=== PATIENT | female | born 1930 | race Caucasian/White ===

== ENCOUNTER 2016-07-08 18:38 | Emergency (ER) | payer MEDICARE, OTHER ==
--- NOTE | 2016-07-10 17:29 | ER ---
DATE SEEN: 07/08/2016 REASON FOR VISIT: Bright red blood per rectum. HISTORY OF PRESENT ILLNESS: This is an 85-year-old female [facility]. She complains of diarrhea for the last 2 to 3 days along with blood streaks and mucous. She was seen in the [facility] and rectal exam did not show any hemorrhoids. INR was 2.12 and she had a normal hemoglobin of 12. She was sent here for possible admission. She complains of mild abdominal pain, but denies any nausea or vomiting. REVIEW OF SYSTEMS: She feels tired, but denies any melena stools, any chest pain, or shortness of breath. PAST MEDICAL HISTORY: Type 2 diabetes, hypertension, history of CVA, and long- term anticoagulation use. SOCIAL HISTORY: She lives at the [facility]. PHYSICAL EXAMINATION: VITAL SIGNS: Blood pressure and temperature within reference range. Her pulse oximetry is 100% in room air. EARS, NOSE, AND THROAT: Negative. SKIN: No pallor or jaundice. CHEST: Clear. ABDOMEN: Soft and benign with no masses. LABORATORY DATA: See above. IMPRESSION: Bright red blood per rectum. PLAN: The patient is stable, has discussed with Dr. Ozuna. I will hold on Coumadin and have her see Dr. Nia Gallagher tomorrow. Discuss colonoscopy in the next several days. Return to the ED with any worsening symptoms. /[id number] DIANA/JAIR
== END 2016-07-08 19:55 | disposition home or self-care (01) ==
LOC: FB.ED 18:38
CPT/HCPCS: 36415; 82272; 85025; 85610; 99282; 99283

== ENCOUNTER 2016-07-12 19:10 | Inpatient (IN) | payer MEDICARE, OTHER ==
[2016-07-12] MEDS ORDERED: Sodium Chloride 0.9% 10 ML Syringe FLUSH PRN (19:36)
[2016-07-12] MEDS: Sodium Chloride 0.9% 1,000 ML IV SCH (21:25)
[2016-07-12] MEDS ORDERED: Ketorolac 15 MG/ML SDV IM PRN (22:26)
[2016-07-12] MEDS ORDERED: Acetaminophen 325 MG Tab PO PRN (22:26)
[2016-07-12] MEDS ORDERED: Sodium Chloride 0.9% 1,000 ML IV SCH (22:30)
--- NOTE | 2016-07-12 23:15 | ER ---
DATE SEEN: 07/12/2016 CHIEF COMPLAINT: Diarrhea. HISTORY OF PRESENT ILLNESS: This 86-year-old female complaining of loose stools since last week. I saw on the , with bright red blood per rectum. I discharged her home. She had a colonoscopy on that showed only a polyp and some hemorrhoids. She had another bright red blood this morning while wiping. She also complains of nonfocal abdominal pain, chills and cold symptoms. REVIEW OF SYSTEMS: A cough, but denies any urinary symptoms. No nausea or vomiting. She is lethargic and has rigors. SOCIAL HISTORY: Nonsmoker. ALLERGIES: IV dye. PAST MEDICAL HISTORY: Type 2 diabetes, hypertension, history of CVA. PHYSICAL EXAMINATION: VITAL SIGNS: Blood pressure 187/87, temp 99.5 initially repeat was 102.8. EARS, NOSE, AND THROAT: Negative. CARDIOVASCULAR: Normal. RESPIRATORY: Clear. ABDOMEN: Soft and benign. LABORATORY DATA: White cell count 17,000, INR 1.2. Creatinine 1.4. CT showed possible colitis, possibly ischemic and chest x-ray was unremarkable with exception of perihilar infiltrates. IMPRESSION: Acute febrile illness, possibly colitis. PLAN: Admit for IV hydration, pain control, fever control, and further workup to control her symptoms. /[id number] DIANA/JAIR
[2016-07-13] MEDS: Sodium Chloride 0.9% 1,000 ML IV SCH (04:45)
[2016-07-13] MEDS: Insulin Aspart 100 Units/ML 3 ML Pen SUBCUT SCH ×2 (11:53→17:04)
--- NOTE | 2016-07-13 11:57 | HP ---
ADMISSION DATE: 07/12/2016 HISTORY OF PRESENT ILLNESS: Sophie Keller is an 86-year-old female, resident of [facility] in [place], who was seen and evaluated at [place] [facility], and admitted to hospital for treatment of lower GI bleed. Beginning of last week, on 07/08/2015, had a couple of bloody painless stools. Not voluminous in nature but somewhat in the twilight. Symptoms were better. Increasing pain, diarrhea, and blood; necessitated in ER visit to the walk-in visit 07/10/2015. Some clotting mucusy stools. She was seen by Dr. Darien Cantu on the , evaluation proceeded, underwent colonoscopy on July 11, was found to have diverticular disease and internal hemorrhoids, one benign polyp was removed, but nothing that was pathologic in nature. No signs of colitis. Then began to have diarrhea, cramps, discomfort, and some secondary blood necessitating admission and treatment in the hospital. She has a history of recurrent diarrhea dating back many years duration. MEDICATIONS: Present daily medications include allopurinol, aspirin, Tessalon Perles, sertraline, Flonase, Advair, hydrochlorothiazide, 34 units of Lantus at bedtime, 8 units of Humalog before each meal, levothyroxine, magnesium sulfate, multivitamin, Accupril, Crestor, sertraline, amlodipine, and Coumadin. ALLERGIES: Allergic to atorvastatin with hives, Lyrica undetermined, IV dye with rash. PAST MEDICAL HISTORY: Significant for multiple surgical procedures including three lumbar back surgery, open cholecystectomy, benign cardiac tumor removal, bilateral carpal tunnel surgery, and bilateral cataract surgery. CHRONIC ILLNESSES: Include type 2 diabetes mellitus, mood disorder, hyperlipidemia hypertension. No other operative procedures, hospitalizations, unusual childhood diseases, major injuries, or fractures. SOCIAL HISTORY: She has resided in [facility] until recent admission to [facility] in [place]. at 76 of heart disease. Six children, three daughters, one son; one son at an early age of heart disease at 39. 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 Nonsmoker. No alcohol consumption. No illicit drug use. FAMILY HISTORY: Negative for early heart disease, diabetes mellitus, or inheritable cancers. REVIEW OF SYSTEMS: CONSTITUTIONAL: Feeling generally just weak and cold this morning. HEENT: Eyes: Sees well with correction. Ears: Hears well without difficulty. Oropharynx: No issues. CHEST: Denies cough, wheeze, or respiratory difficulty. CARDIOVASCULAR: Denies chest pain, palpitations, or syncope. GI: Please see HPI. : Some difficulty with urgent continence. SKIN: No new lesions, eruptions, or moles. ENDOCRINE: No excessive thirst, urination, or allergy. No chronic cough, wheeze, or congestion. PSYCHIATRIC: Mood stable. PHYSICAL EXAMINATION: VITAL SIGNS: 69.9 kg; 37.1 degrees Fahrenheit; pulse 98 and regular; 170/73, repeat 131/57; 20 is the respiration; O2 saturation 98 and 100%. GENERAL: Elderly cooperative and conversant. Gives a good history. Daughter in attendance. Funduscopic benign. Bright TMs. Clear nasal discharge. Mouth and oropharynx clear. Good gag reflex. Tongue midline. NECK: Benign. Thyroid small. CHEST: Clear in all lung stewart. Sternotomy scar well healed. HEART: Regular without ectopy or murmur. Normal S1, S2 without S3-S4 murmur. ABDOMEN: Benign. Right upper quadrant open cholecystectomy scar. Liver edge palpable. No splenic enlargement. PELVIC and RECTAL: Deferred. EXTREMITIES: Well perfused. LABORATORY STUDIES: On admission, hemoglobin 12.2, repeat 11.1; white count 17,000, now 24,000. Protime 12.2, INR 1.21, off Coumadin. Electrolytes stable. GFR 36 and 36, BUN 38 and 32, creatinine 1.4 and 1.4, Mildly elevated AST at [address] by report, not available, colitis discussed. ASSESSMENT: Unexplained abdominal pain, rectal bleeding, likely hemorrhoidal in nature, no signs of inflammatory bowel disease. PLAN: Medications care and treatment appropriate. We will recheck her laboratory studies at about 3 o'clock. We will discontinue IV fluids and feed accordingly. /[id number] /JAIR
[2016-07-13] MEDS ORDERED: Sodium Chloride 0.9% 1,000 ML IV SCH (16:15)
[2016-07-13] MEDS ORDERED: Insulin Detemir 100 Units/ML 3 ML Pen SUBCUT SCH (21:00)
[2016-07-13] MEDS: Sertraline 50 MG Tab PO SCH (21:10)
[2016-07-14] MEDS: Levothyroxine 88 MCG Tab PO SCH (08:34)
[2016-07-14] MEDS: Aspirin 81 MG Tab.EC PO SCH (08:34)
[2016-07-14] MEDS: amLODIPine 5 MG Tab PO SCH (08:34)
[2016-07-14] MEDS: Insulin Aspart 100 Units/ML 3 ML Pen SUBCUT SCH ×3 (08:35→18:26)
--- NOTE | 2016-07-14 09:38 | PN ---
DATE SEEN: 07/14/2016 SUBJECTIVE: Sophie Keller is an 86-year-old female, admitted with vague, but problematic abdominal pain, frequent stools, and bloody stools. Colonoscopy recently performed had a single polyp, internal hemorrhoids. Hemoglobin has fallen from 12+ to 10.1. Vague abdominal pain, and frequent stools today. Otherwise reasonable. LABORATORY DATA: From 07/13 revealed white count 18,100; hemoglobin 10.1. Normochromic normocytic indices. Sedimentation rate 46, CRP 3.6. Sugars were noted. Blood cultures negative. OBJECTIVE: VITAL SIGNS: Weight 71.838 kg, temperature 36.7 degrees Fahrenheit, blood pressure 135/61, respiratory rate 18, O2 sat 98%. GENERAL: Appears comfortable. NECK: Benign. Thyroid small. CHEST: Clear in all lung stewart. HEART: Regular rate without ectopy or murmur. ABDOMEN: Intermittently tender. Peculiar abdominal pain following hemoglobin, recent colonoscopy. PLAN: Consultation, Dr. Darien Cantu, complementary care, and well being. Continue IV fluids. Laboratory studies to follow. /[id number] LYDIA/JAIR
--- NOTE | 2016-07-14 12:13 | CR ---
INDICATION: Cough. History of open heart surgery 1987. CHEST: PA and lateral views of the chest 07/12/2016. No comparisons. Somewhat flattened diaphragm leaves with prominent AP diameter and hyperaeration suggest COPD. No consolidating pneumonia or effusion could be identified. No evidence of CHF is seen. The heart is prominent in size, but not grossly enlarged. The aorta is calcified and somewhat tortuous. Median sternotomy is noted. Degenerative changes are noted in the mid thoracic spine. IMPRESSION: No acute process - findings as noted above. MTDD
[2016-07-14] MEDS: Sertraline 50 MG Tab PO SCH (21:37)
[2016-07-14] MEDS: Rosuvastatin 10 MG Tab PO SCH (21:37)
[2016-07-14] MEDS: Insulin Detemir 100 Units/ML 3 ML Pen SUBCUT SCH (21:40)
--- NOTE | 2016-07-14 22:03 | CONS ---
DATE OF CONSULTATION: 07/14/2016 HISTORY OF PRESENT ILLNESS: This 86-year-old female was admitted to the hospital 2 days ago with return of diarrhea and some blood in her stools. These symptoms began about a week ago and led to evaluation including a colonoscopy on 07/11/2016. At that time, the colon mucosa appeared unremarkable. She did have some internal hemorrhoids and a small amount of diverticular disease. A small benign-appearing polyp was also removed. No definite signs of colitis were seen at that time and no active bleeding was noted. It was felt that the most likely scenario was some bleeding from her hemorrhoids exacerbated by the diarrhea. Since she has been in the hospital, she did have some blood in her stool early on, but has not had any over the last 24-36 hours. She is, however, still having several small stools each day. She has a little bit of crampy abdominal pain with these, although generally does not have abdominal pain while at rest. Her appetite is less than normal, but she is not having any vomiting. DIAGNOSTIC DATA: Laboratory studies did show elevated serum white blood cell count of 18,000 yesterday and this has come down to 15,000 today and her hemoglobin which had been depressed yesterday at 10 is now up to 11.5 even with hydration. The patient underwent a CT scan of the abdomen and pelvis at the time of admission, which showed a little bit of colonic dilation which would not be unexpected in the post colonoscopy state, but no evidence of complication from colonoscopy was noted. PHYSICAL EXAMINATION: VITAL SIGNS: The patient currently is afebrile and has been since admission. Her blood pressure is 141/63 and her pulse is 94. GENERAL: She appears alert and in no acute distress. Her abdomen is soft and nontender. IMPRESSION: Persistent diarrhea. This began about 3 days after the patient was placed on antibiotics for a sinus infection. The possibility of antibiotic- induced colitis with diarrhea is a consideration. Viral illness is also a possibility. I do not see evidence of complication from her colonoscopy at this time. I have discussed this with Dr. Leach, who will continue care of this patient and we will test for Clostridium difficile toxin. /[id number] TRACY/JAIR
[2016-07-15] MEDS: Aspirin 81 MG Tab.EC PO SCH (10:04)
[2016-07-15] MEDS: Levothyroxine 88 MCG Tab PO SCH (10:04)
[2016-07-15] MEDS: amLODIPine 5 MG Tab PO SCH (10:05)
[2016-07-15] MEDS: Atropine/Diphenoxylate 0.025-2.5 MG Tab PO PRN ×2 (11:21→15:58)
--- NOTE | 2016-07-15 12:07 | PN ---
DATE SEEN: 07/15/2016 SUBJECTIVE: Sophie Keller is an 86-year-old female, admitted with peculiar problematic diarrhea. Testing for Clostridium difficile pending. Consultation with Dr. Cantu helpful and insightful. Doing well. Had multiple stools through the night. Clostridium testing pending. OBJECTIVE: VITAL SIGNS: 36.4, 80, 128/61, 18, and 98%. GENERAL: Appears comfortable. CHEST: Clear. HEART: Regular. ABDOMEN: No particular palpable masses, no particular tenderness. ASSESSMENT: Protracted diarrhea. PLAN: Stool testing pending, results later available today. We will discontinue IV fluids and encourage hydration. Lomotil will be started for diarrhea. /[id number] LYDIA/JAIR
[2016-07-15] MEDS: Insulin Aspart 100 Units/ML 3 ML Pen SUBCUT SCH ×2 (14:53→14:54)
[2016-07-15] MEDS: metroNIDAZOLE 500 MG Tab PO SCH ×2 (15:59→22:24)
[2016-07-15] MEDS: Rosuvastatin 10 MG Tab PO SCH (20:52)
[2016-07-15] MEDS: Insulin Detemir 100 Units/ML 3 ML Pen SUBCUT SCH (20:52)
[2016-07-15] MEDS: Sertraline 50 MG Tab PO SCH (20:53)
[2016-07-16] MEDS ORDERED: Levothyroxine 88 MCG Tab PO SCH (06:00)
[2016-07-16] MEDS: metroNIDAZOLE 500 MG Tab PO SCH ×2 (06:09→13:02)
[2016-07-16] MEDS: Aspirin 81 MG Tab.EC PO SCH (09:02)
[2016-07-16] MEDS: amLODIPine 5 MG Tab PO SCH (09:02)
[2016-07-16 12:07] VITALS: BP 138/65
--- NOTE | 2016-07-17 08:01 | DISCH ---
DISCHARGE DATE: 07/16/2016 HOSPITAL COURSE: Sophie Keller is an 86-year-old female, admitted with complicated abdominal pain, diarrhea, lethargy, and complicated fatigue. Had recently undergone a colonoscopy prior to admission. Complicated diarrhea and severe abdominal pain. Seen by Dr. Darien Cantu, who felt there were no implications of her colonoscopy and biopsy of a polyp. IV fluids were provided. Analgesics as appropriate. Antidiarrheals as appropriate. Culture of stool returned Clostridium difficile, was started on appropriate antibiotic therapy. At the time of discharge, stools were minimized. Fever was absent. Belly pain was limited, and she was in good spirits. DISCHARGE MEDICATIONS: Please see med recon list. CONSULTATION: Darien Cantu MD. /[id number] LYDIA/JAIR CC: FORREST WAGNER CNP, [facility]
== END 2016-07-16 13:03 | DRG 373 ==
LOC: FB.ED 19:10 → FB.MS 22:26
PROVIDERS: ADMIT Family Medicine; ATTEND Family Medicine
DX: A04.7 Enterocolitis due to Clostridium difficile (principal); E11.9 Type 2 diabetes mellitus without complications; I10 Essential (primary) hypertension; Z66 Do not resuscitate; Z79.82 Long term (current) use of aspirin; R19.7 Diarrhea, unspecified; R10.9 Unspecified abdominal pain; K62.5 Hemorrhage of anus and rectum; E78.5 Hyperlipidemia, unspecified; Z79.01 Long term (current) use of anticoagulants; Z79.4 Long term (current) use of insulin; Z91.041 Radiographic dye allergy status; Z88.8 Allergy status to other drugs, medicaments and biological substances; Z86.73 Personal history of transient ischemic attack (TIA), and cerebral infarction without residual deficits; F39 Unspecified mood [affective] disorder
CPT/HCPCS: 36415; 71020; 74176; 80053; 85025; 85610; 99284; 99285; J7040; J7050; 81001; 82962; 85651; 86140; 87040; 87324; 87798; 87798-59; A9270-GY

== ENCOUNTER 2016-07-28 08:47 | Observation (INO) | payer MEDICARE, OTHER ==
[2016-07-28] MEDS ORDERED: Sodium Chloride 0.9% 10 ML Syringe FLUSH PRN (08:58)
[2016-07-28] MEDS ORDERED: Sodium Chloride 0.9% 500 ML IV ONE (08:58)
[2016-07-28] MEDS ORDERED: Ondansetron 4 MG/2 ML SDV IVPUSH ONE (09:12)
[2016-07-28] MEDS ORDERED: Pantoprazole 40 MG in Sodium Chloride 0.9% 100 ML IV ONE (09:12)
[2016-07-28] MEDS ORDERED: Pantoprazole 40 MG Vial IVPUSH ONE (09:28)
--- NOTE | 2016-07-28 09:40 | EDM.PDOC ---
ED HPI GI/ABDOMINAL - General Chief Complaint: Gastrointestinal Problem Stated Complaint: vomiting Time Seen by Provider: 07/28/16 09:13 Source: Reports: Patient, Family History Limitations: Reports: Altered mental status - History of Present Illness INITIAL COMMENTS - FREE TEXT/NARRATIVE: 86 years old w f with history of c diff, last ABX taken yesterday, came to the ed with her daughter due to N/V/D this morning and feeling weak. Pt ambulating short distances. No Dizziness. Her SBP was in the 80s, her puls was 90 BPM. Pt had 2 BMs last night and vomited once this morning. Symptom Onset Date: 07/27/16 Symptom Onset Time: 07:00 Timing/Duration: Reports: Day(s): Location: generalized Quality: Reports: cramping (lower abd. ) Severity: mild Associated Symptoms (-Female): Reports: diarrhea, nausea/vomiting - Related Data Allergies/ADRs: Allergies Allergy/AdvReac Type Severity Reaction Status Date / Time atorvastatin Allergy Hives Verified 07/28/16 08:56 pregabalin [From Lyrica] Allergy Cannot Verified 07/28/16 08:56 Remember iv dye Allergy Rash Uncoded 07/12/16 19:41 Home Meds: Home Meds Allopurinol [Zyloprim] 100 mg PO DAILY 11/25/15 [History] Aspirin [Adult Low Dose Aspirin EC] 81 mg PO DAILY 11/25/15 [History] Fluticasone/Salmeterol [Advair 250-50 Diskus] 2 puff INH BID 11/25/15 [History] Hydrochlorothiazide 25 mg PO DAILY 11/25/15 [History] Insulin Glarg,Human.Rec.Analog [Lantus Solostar] 34 unit SQ BEDTIME 11/25/15 [ History] Insulin Lispro [HumaLOG] 8 unit SQ ,,11/25/15 [History] Levothyroxine [Synthroid] 88 mcg PO DAILY 11/25/15 [History] Quinapril [Accupril] 40 mg PO BEDTIME 11/25/15 [History] Rosuvastatin [Crestor] 20 mg PO BEDTIME 11/25/15 [History] Sertraline [Zoloft] 50 mg PO BEDTIME 11/25/15 [History] Multivitamin [Multivitamins] 1 each PO DAILY 05/18/16 [History] Warfarin [Coumadin] 5 mg PO SUTUWETHFRSA 05/18/16 [History] Warfarin [Coumadin] 7.5 mg PO MO 05/18/16 [History] Cholecalciferol (Vitamin D3) [Vitamin D] 2,000 unit PO DAILY 05/19/16 [History] amLODIPine [Norvasc] 5 mg PO DAILY 05/19/16 [History] Benzonatate [Tessalon Perles] 100 mg PO Q8HR PRN 07/08/16 [History] Cetirizine [ZyrTEC] 10 mg PO DAILY 07/08/16 [History] Fluticasone Furoate [Flonase Sensimist] 9.9 ml NS DAILY 07/08/16 [History] Magnesium Oxide 400 mg PO BID 07/08/16 [History] Past Medical History HEENT History: Reports: Allergic rhinitis, Cataract, Hard of hearing, Impaired vision, Other (see below) Other HEENT History: 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 Colonoscopy 07-11-2016 Genitourinary History: Reports: Acute renal failure, Renal disease [employer] History: Reports: Musculoskeletal History: Reports: Arthritis, Back pain, chronic, Fibromyalgia, Gout Neurological History: Reports: CVA, Headaches, chronic Psychiatric History: Reports: Anxiety, Depression Endocrine/Metabolic History: Reports: Diabetes, type II Hematologic History: Reports: None Immunologic History: Reports: None Oncologic (Cancer) History: Reports: None Dermatologic History: Reports: None - Infectious Disease History Infectious Disease History: Reports: Chicken pox, Influenza, Measles, Mumps, Shingles - Past Surgical History Head Surgeries/Procedures: Reports: None HEENT Surgical History: Reports: Cataract surgery Cardiovascular Surgical History: Reports: None Respiratory Surgical History: Reports: None GI Surgical History: Reports: Appendectomy, Cholecystectomy, Colonoscopy, EGD, Polypectomy Female Surgical History: Reports: Hysterectomy Endocrine Surgical History: Reports: None Neurological Surgical History: Reports: C-Spine Musculoskeletal Surgical History: Reports: Carpal tunnel, Other (see below) Other Musculoskeletal Surgeries/Procedures:: back surgerys times 3 Oncologic Surgical History: Reports: None Dermatological Surgical History: Reports: None Social & Family History - Family History HEENT: Reports: Impaired vision Cardiac: Reports: Heart failure, High cholesterol, Hypertension, [place] Respiratory: Reports: Asthma GI: Reports: Colon polyps : Reports: Other (see below) Other Family History: brother had blood disease that led to kidney disease OBGYN: Reports: Fibroids, Musculoskeletal: Reports: Gout Neurological: Reports: CVA, Migraines Psychiatric: Reports: Depression Endocrine/Metabolic: Reports: Diabetes, type II Hematologic: Reports: None Immunologic: Reports: Solid organ transplant Dermatologic: Reports: Eczema Oncologic: Reports: Skin - Tobacco Use Smoking Status *Q: Never Smoker Second Hand Smoke Exposure: No - Caffeine Use Caffeine Use: Reports: Soda - Recreational Drug Use Recreational Drug Use: No ED ROS GENERAL - Review of Systems Review Of Systems: See Below Constitutional: Reports: malaise, weakness HEENT: Reports: No symptoms Respiratory: Reports: No Symptoms Cardiovascular: Reports: Blood pressure problem Endocrine: Reports: no symptoms GI/Abdominal: Reports: Diarrhea : Reports: no symptoms Musculoskeletal: Reports: no symptoms Skin: Reports: no symptoms Neurological: Reports: No Symptoms Psychiatric: Reports: No symptoms Hematologic/Lymphatic: Reports: no symptoms Immunologic: Reports: no symptoms ED EXAM, GI/ABD - Physical Exam Exam: See Below Exam Limited By: Physical impairment General Appearance: alert, WD/WN, mild distress Eyes: bilateral: normal appearance Ears: normal external exam, normal canal Nose: normal inspection, normal mucosa, no blood Throat/Mouth: Normal inspection, Normal lips, Normal gums Head: atraumatic, normocephalic Neck: normal inspection, supple, non-tender Respiratory/Chest: no respiratory distress, lungs clear, normal breath sounds, no accessory muscle use Cardiovascular: normal peripheral pulses, regular rate, rhythm GI/Abdominal: tenderness (lower abd. ) (Female) Exam: Deferred Rectal (Female) Exam: Deferred Back Exam: normal inspection, full range of motion Extremities: normal inspection, normal range of motion Neurological: alert, oriented, CN II-XII intact, normal cognition Psychiatric: normal affect Skin Exam: Warm, Dry, Intact Lymphatic: no adenopathy Course - Vital Signs Text/Narrative:: 86 years old w f with history of c diff, last ABX taken yesterday, came to the ed with her daughter due to N/V/D this morning and feeling weak. Pt ambulating short distances. No Dizziness. Her SBP was in the 80s, her puls was 90 BPM. Pt had 2 BMs last night and vomited once this morning. PE: Gen weakness. dry mucosal membrane Labs: WBC 31K Cr. 2.1 C Diff reuslts are pending, UA pending Impression: renal insuff, Leucocytosis, gen weakness, DNR Tx: NS, Zofran. Reexam: Improved Plan: Admit to [facility] for observation, Dr. Capellan accepted. Last Recorded V/S: Last Vital Signs Temp 36.9 C 07/28/16 09:13 Pulse 85 07/28/16 11:26 Resp 20 07/28/16 09:13 BP 111/92 H 07/28/16 11:26 Pulse Ox 100 07/28/16 09:13 - Orders/Labs/Meds Orders: Active Orders 24 hr Category Date Time Status Patient Status [ADT] Routine ADT 07/28/16 11:25 Ordered EKG Documentation Completion [RC] ASDIRECTED Care 07/28/16 11:24 Ordered Oxygen Therapy [RC] PRN Care 07/28/16 11:25 Ordered Up With Assistance [RC] ASDIRECTED Care 07/28/16 11:24 Ordered VTE/DVT Education [RC] Per Unit Routine Care 07/28/16 11:25 Ordered Vital Signs [RC] Q4H Care 07/28/16 11:25 Ordered Clear Liquid Diet [DIET] Diet 07/28/16 Breakfast Ordered UA W/MICROSCOPIC [URIN] Stat Lab 07/28/16 09:14 Uncollected Ondansetron [Zofran] Med 07/28/16 11:24 Ordered 4 mg IV Q6H PRN Sodium Chloride 0.9% [Saline Flush] Med 07/28/16 08:58 Active 10 ml FLUSH ASDIRECTED PRN Saline Lock Insert [OM.PC] Routine Oth 07/28/16 08:58 Ordered Resuscitation Status Routine Resus Stat 07/28/16 11:24 Ordered EKG 12 Lead [EK] Routine Ther 07/28/16 11:24 Ordered Medication Orders Ondansetron HCl (Zofran) 4 mg IV Q6H PRN PRN Reason: Nausea/Vomiting Sodium Chloride (Saline Flush) 10 ml FLUSH ASDIRECTED PRN PRN Reason: Keep Vein Open Last Admin: 07/28/16 09:07 Dose: 10 ml Labs: Laboratory Tests 07/28/16 07/28/16 07/28/16 Range/Units 09:32 09:32 09:32 WBC 31.5 H* (4.5-12.0) X10-3/uL RBC 3.59 (3.23-5.20) x10(6)uL Hgb 11.3 L (11.5-15.5) g/dL Hct 32.9 (30.0-51.3) % MCV 91.7 (80-96) fL MCH 31.6 (27.7-33.6) pg MCHC 34.5 (32.2-35.4) g/dL RDW 14.3 (11.5-15.5) % Plt Count 327 (125-369) X10(3)uL MPV 8.7 (7.4-10.4) fL Add Manual Diff Yes Neutrophils % (Manual) 91 H (46-82) % Band Neutrophils % 2 (0-6) % Lymphocytes % (Manual) 5 L (13-37) % Monocytes % (Manual) 2 L (4-12) % PT 19.7 H (8.7-11.1) INR 1.92 H (0.89-1.13) Sodium 133 L (135-145) mmol/L Potassium 3.8 (3.5-5.3) mmol/L Chloride 103 D (100-110) mmol/L Carbon Dioxide 19 L (23-29) mmol/L BUN 51 H D (8-23) mg/dL Creatinine 2.1 H* (0.6-1.3) mg/dL Est Cr Clr Drug Dosing 14.32 mL/min Estimated GFR (MDRD) 22 L (>60) BUN/Creatinine Ratio 24.3 H (9-20) Glucose 294 H D (80-116) mg/dL Calcium 8.3 L (8.6-10.2) mg/dL B-Natriuretic Peptide (0-100) pg/mL 07/28/16 Range/Units 09:32 WBC (4.5-12.0) X10-3/uL RBC (3.23-5.20) x10(6)uL Hgb (11.5-15.5) g/dL Hct (30.0-51.3) % MCV (80-96) fL MCH (27.7-33.6) pg MCHC (32.2-35.4) g/dL RDW (11.5-15.5) % Plt Count (125-369) X10(3)uL MPV (7.4-10.4) fL Add Manual Diff Neutrophils % (Manual) (46-82) % Band Neutrophils % (0-6) % Lymphocytes % (Manual) (13-37) % Monocytes % (Manual) (4-12) % PT (8.7-11.1) INR (0.89-1.13) Sodium (135-145) mmol/L Potassium (3.5-5.3) mmol/L Chloride (100-110) mmol/L Carbon Dioxide (23-29) mmol/L BUN (8-23) mg/dL Creatinine (0.6-1.3) mg/dL Est Cr Clr Drug Dosing mL/min Estimated GFR (MDRD) (>60) BUN/Creatinine Ratio (9-20) Glucose (80-116) mg/dL Calcium (8.6-10.2) mg/dL B-Natriuretic Peptide 185 H (0-100) pg/mL Meds: Medications Generic Name Dose Route Start Last Admin Trade Name Freq PRN Reason Stop Dose Admin Ondansetron HCl 4 mg 07/28/16 11:24 Zofran IV Q6H PRN Nausea/Vomiting Sodium Chloride 10 ml 07/28/16 08:58 07/28/16 09:07 Saline Flush FLUSH 10 ml ASDIRECTED PRN Administration Keep Vein Open Discontinued Medications Generic Name Dose Route Start Last Admin Trade Name Freq PRN Reason Stop Dose Admin Sodium Chloride 500 mls @ 500 mls/hr 07/28/16 08:58 07/28/16 09:08 Normal Saline IV 07/28/16 09:57 500 mls/hr .BOLUS ONE Administration Pantoprazole Sodium 40 mg/ 100 mls @ 200 mls/hr 07/28/16 09:12 07/28/16 09:29 Sodium Chloride IV 07/28/16 09:41 Not Given .BOLUS ONE Ondansetron HCl 8 mg 07/28/16 09:12 07/28/16 09:25 Zofran IVPUSH 07/28/16 09:13 8 mg ONETIME ONE Administration Pantoprazole Sodium 40 mg 07/28/16 09:28 07/28/16 09:29 Protonix Iv IVPUSH 07/28/16 09:29 40 mg ONETIME ONE Administration Departure - Departure Time of Disposition: 11:23 Disposition: Refer to Observation Condition: fair Clinical Impression: Weakness - My Orders Last 24 Hours: My Active Orders 07/28/16 08:58 Sodium Chloride 0.9% [Saline Flush] 10 ml FLUSH ASDIRECTED PRN Saline Lock Insert [OM.PC] Routine 07/28/16 09:14 UA W/MICROSCOPIC [URIN] Stat 07/28/16 11:24 EKG Documentation Completion [RC] ASDIRECTED Up With Assistance [RC] ASDIRECTED Ondansetron [Zofran] 4 mg IV Q6H PRN Resuscitation Status Routine EKG 12 Lead [EK] Routine 07/28/16 11:25 Patient Status [ADT] Routine Oxygen Therapy [RC] PRN VTE/DVT Education [RC] Per Unit Routine Vital Signs [RC] Q4H 07/28/16 Breakfast Clear Liquid Diet [DIET] - Assessment/Plan Last 24 Hours: My Active Orders 07/28/16 08:58 Sodium Chloride 0.9% [Saline Flush] 10 ml FLUSH ASDIRECTED PRN Saline Lock Insert [OM.PC] Routine 07/28/16 09:14 UA W/MICROSCOPIC [URIN] Stat 07/28/16 11:24 EKG Documentation Completion [RC] ASDIRECTED Up With Assistance [RC] ASDIRECTED Ondansetron [Zofran] 4 mg IV Q6H PRN Resuscitation Status Routine EKG 12 Lead [EK] Routine 07/28/16 11:25 Patient Status [ADT] Routine Oxygen Therapy [RC] PRN VTE/DVT Education [RC] Per Unit Routine Vital Signs [RC] Q4H 07/28/16 Breakfast Clear Liquid Diet [DIET]
[2016-07-28] MEDS ORDERED: Ondansetron 4 MG/2 ML SDV IV PRN (11:24)
[2016-07-28] MEDS ORDERED: Benzonatate 100 MG Cap PO PRN (11:44)
[2016-07-28] MEDS ORDERED: Warfarin 5 MG Tab PO SCH (11:45)
[2016-07-28] MEDS ORDERED: Warfarin 5 MG Tab *PTOM PO SCH (16:00)
--- NOTE | 2016-07-28 17:14 | PCM.HP ---
H&P History of Present Illness - General Date of Service: 07/28/16 Admit Problem/Dx: Admission Diagnosis/Problem Admission Diagnosis/Problem Weakness Source of Information: Patient History Limitations: Reports: No limitations - History of Present Illness Initial Comments - Free Text/Narative: 86-year-old female with current diarrhea. She presented to the ER diarrhea for approximately 2-3 days she and vomiting. She was recently being treated for C. difficile and finished her last antibiotic yesterday. From a record is not clear what type of that she was taking. The last episode of vomiting was this morning, and the stool is described as loose foul-smelling suspicious for C. difficile. She denies any abdominal pain but feels weak and dehydrated. She has a history of type 2 diabetes, stable and hypertension stable. The her 3rd admission the last one month. Check colonoscopy the 10th did not show anything significant. - Related Data Allergies/Adverse Reactions: Allergies Allergy/AdvReac Type Severity Reaction Status Date / Time atorvastatin Allergy Hives Verified 07/28/16 08:56 pregabalin [From Lyrica] Allergy Cannot Verified 07/28/16 08:56 Remember iv dye Allergy Rash Uncoded 07/12/16 19:41 Home Medications: Home Meds Allopurinol [Zyloprim] 100 mg PO DAILY 11/25/15 [History] Aspirin [Adult Low Dose Aspirin EC] 81 mg PO DAILY 11/25/15 [History] Fluticasone/Salmeterol [Advair 250-50 Diskus] 1 puff INH BID 11/25/15 [History] Hydrochlorothiazide 25 mg PO DAILY 11/25/15 [History] Insulin Glarg,Human.Rec.Analog [Lantus Solostar] 34 unit SQ BEDTIME 11/25/15 [ History] Insulin Lispro [HumaLOG] 8 unit SQ ,,11/25/15 [History] Levothyroxine [Synthroid] 88 mcg PO DAILY 11/25/15 [History] Quinapril [Accupril] 40 mg PO BEDTIME 11/25/15 [History] Rosuvastatin [Crestor] 20 mg PO BEDTIME 11/25/15 [History] Sertraline [Zoloft] 50 mg PO BEDTIME 11/25/15 [History] Multivitamin [Multivitamins] 1 each PO DAILY 05/18/16 [History] Warfarin [Coumadin] 5 mg PO SUTUWETHFRSA 05/18/16 [History] Warfarin [Coumadin] 7.5 mg PO MO 05/18/16 [History] Cholecalciferol (Vitamin D3) [Vitamin D] 2,000 unit PO DAILY 05/19/16 [History] amLODIPine [Norvasc] 5 mg PO DAILY 05/19/16 [History] Benzonatate [Tessalon Perles] 100 mg PO Q8HR PRN 07/08/16 [History] Cetirizine [ZyrTEC] 10 mg PO DAILY 07/08/16 [History] Fluticasone Furoate [Flonase Sensimist] 9.9 ml NS DAILY 07/08/16 [History] Magnesium Oxide 400 mg PO BID 07/08/16 [History] Past Medical History HEENT History: Reports: Allergic rhinitis, Cataract, Hard of hearing, Impaired vision, Other (see below) Other HEENT History: 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: Musculoskeletal History: Reports: Arthritis, Back pain, chronic, Fibromyalgia, Gout Neurological History: Reports: CVA, Headaches, chronic Psychiatric History: Reports: Anxiety, Depression Endocrine/Metabolic History: Reports: Diabetes, type II Hematologic History: Reports: None Immunologic History: Reports: None Oncologic (Cancer) History: Reports: None Dermatologic History: Reports: None - Infectious Disease History Infectious Disease History: Reports: Chicken pox, Influenza, Measles, Mumps, Shingles - Past Surgical History Head Surgeries/Procedures: Reports: None HEENT Surgical History: Reports: Cataract surgery Cardiovascular Surgical History: Reports: None Respiratory Surgical History: Reports: None GI Surgical History: Reports: Appendectomy, Cholecystectomy, Colonoscopy, EGD, Polypectomy Female Surgical History: Reports: Hysterectomy Endocrine Surgical History: Reports: None Neurological Surgical History: Reports: C-Spine Musculoskeletal Surgical History: Reports: Carpal tunnel, Other (see below) Other Musculoskeletal Surgeries/Procedures:: back surgerys times 3 Oncologic Surgical History: Reports: None Dermatological Surgical History: Reports: None Social & Family History - Family History Family Medical History: Noncontributory HEENT: Reports: Impaired vision Cardiac: Reports: Heart failure, High cholesterol, Hypertension, [place] Respiratory: Reports: Asthma GI: Reports: Colon polyps : Reports: Other (see below) Other Family History: brother had blood disease that led to kidney disease OBGYN: Reports: Fibroids, Musculoskeletal: Reports: Gout Neurological: Reports: CVA, Migraines Psychiatric: Reports: Depression Endocrine/Metabolic: Reports: Diabetes, type II Hematologic: Reports: None Immunologic: Reports: Solid organ transplant Dermatologic: Reports: Eczema Oncologic: Reports: Skin - Tobacco Use Smoking Status *Q: Never Smoker Second Hand Smoke Exposure: No - Caffeine Use Caffeine Use: Reports: None - Recreational Drug Use Recreational Drug Use: No H&P Review of Systems - Review of Systems: Review Of Systems: ROS reveals no pertinent complaints other than HPI. Exam - Exam Exam: See Below - Vital Signs Vital Signs: Last Vital Signs Temp 98.7 F 07/28/16 15:45 Pulse 85 07/28/16 11:26 Resp 18 07/28/16 15:45 BP 100/46 L 07/28/16 15:45 Pulse Ox 97 07/28/16 15:45 Weight: 69.445 kg - Exam General: alert, oriented, 4 HEENT: PERRLA, Hearing intact, Mucosa moist & pink, Nares patent, Normal nasal septum, Posterior pharynx clear, Conjunctiva clear, EOMI, EACs clear, TMs clear Neck: supple, trachea midline, 2 Lungs: Clear to auscultation, Normal respiratory effort Cardiovascular: regular rate, regular rhythm Abdomen: normal bowel sounds, soft (Female) Exam: Deferred Rectal (Female) Exam: Deferred Back Exam: normal inspection, full range of motion, NT Extremities: 3, normal inspection, 10 Skin: warm, dry, intact Neurological: cranial nerves intact, reflexes equal bilateral Neuro Extensive - Mental Status: alert, oriented x3, normal mood/affect, normal cognition Neuro Extensive - Motor, Sensory, Reflexes: CN II-XII intact, normal gait, normal reflexes Psychiatric: alert, normal affect, normal mood - Patient Data Lab Results last 24 hrs: Laboratory Results - last 24 hr 07/28/16 07/28/16 Range/Units 16:00 16:12 POC Glucose 282 H D (80-116) mg/dL Urine Color Yellow (YELLOW) Urine Appearance Clear (CLEAR) Urine pH 5.0 (5.0-6.5) Ur Specific [place] 1.025 (1.010-1.025) Urine Protein Trace (NEGATIVE) mg/dL Urine Glucose (UA) Normal (NEGATIVE) mg/dL Urine Ketones Negative (NEGATIVE) mg/dL Urine Occult Blood Moderate H (NEGATIVE) Urine Nitrite Negative (NEGATIVE) Urine Bilirubin Negative (NEGATIVE) Urine Urobilinogen Normal (NEGATIVE) mg/dL Ur Leukocyte Esterase Negative (NEGATIVE) Urine RBC 10-20 H (0) Urine WBC 0-5 (0) Ur Squamous Epith Cells Many H (NS,R,O) Urine Bacteria Many H (NS) Hyaline Casts Few H (NS) Result Diagrams: 07/28/16 09:32 07/28/16 09:32 *Q Meaningful Use (ADM) - VTE *Q VTE Criteria *Q: - Stroke *Q Stroke Criteria *Q: - AMI *Q AMI Criteria *Q: - Problem List (1) Diarrhea SNOMED Code(s): 37370383 ICD Code: R19.7 - DIARRHEA, UNSPECIFIED Status: Acute Current Visit: Yes (2) Renal failure (ARF), acute on chronic SNOMED Code(s): 802415717 ICD Code: N17.9 - ACUTE KIDNEY FAILURE, UNSPECIFIED; N18.9 - CHRONIC KIDNEY DISEASE, UNSPECIFIED Status: Acute Current Visit: Yes (3) Diabetes type 2, controlled SNOMED Code(s): 14774130 ICD Code: E11.9 - TYPE 2 DIABETES MELLITUS WITHOUT COMPLICATIONS Status: Acute Current Visit: Yes Qualifiers: Diabetes mellitus complication status: without complication (4) HTN (hypertension) SNOMED Code(s): 33183015 ICD Code: I10 - ESSENTIAL (PRIMARY) HYPERTENSION Status: Acute Current Visit: Yes Qualifiers: Hypertension type: essential hypertension Qualified Code(s): I10 - Essential (primary) hypertension (5) Leukocytosis SNOMED Code(s): 207796722, 676108677 ICD Code: D72.829 - ELEVATED WHITE BLOOD CELL COUNT, UNSPECIFIED Status: Acute Current Visit: Yes Qualifiers: Leukocytosis type: lymphocytosis Qualified Code(s): D72.820 - Lymphocytosis (symptomatic) Problem List Initiated/Reviewed/Updated: Yes Orders Last 24hrs: Active Orders 24 hr Category Date Time Status Accu Check [Blood Glucose Check, Bedside] [RC] TIDAC Care 07/28/16 11:48 Active C DIFFICILE BY DNA [RM] Stat Lab 07/28/16 17:11 Uncollected CBC WITH AUTO DIFF [HEME] AM Lab 07/29/16 05:11 Ordered CDIFF TOXIN A+B GROUP [OP] Routine Lab 07/28/16 12:35 Received COMPREHENSIVE METABOLIC PN,CMP [CHEM] AM Lab 07/29/16 05:11 Ordered CULTURE-STOOL [MREF] Routine Lab 07/28/16 17:11 Uncollected PERIPH BLOOD SMEAR PATHOLOGIST [HEME] Routine Lab 07/28/16 17:11 Ordered Allopurinol [Zyloprim] Med 07/29/16 09:00 Active 100 mg PO DAILY Aspirin [Halfprin] Med 07/29/16 09:00 Active 81 mg PO DAILY Benzonatate [Tessalon Perles] Med 07/28/16 11:44 Active 100 mg PO Q8H PRN Cetirizine [ZyrTEC] Med 07/29/16 09:00 Active 10 mg PO DAILY Cholecalciferol (Vitamin D3) [Vitamin D3] Med 07/29/16 09:00 Active 2,000 units PO DAILY Fluticasone Propionate [Flonase] Med 07/29/16 09:00 Active 0 gm NASBOTH DAILY Fluticasone/Salmeterol [Advair 250-50 Diskus] Med 07/28/16 21:00 Active 1 puff INH BID Insulin Glarg,Human.Rec.Analog [Lantus Solostar] Med 07/28/16 21:00 Active 34 unit SQ BEDTIME Insulin Lispro [HumaLOG] Med 07/28/16 17:00 Active 8 unit SQ , Levothyroxine [Synthroid] Med 07/29/16 06:00 Active 88 mcg PO DAILY@0600 Magnesium Oxide Med 07/28/16 21:00 Active 400 mg PO BID Multivitamins [Tab-A-Masoud] Med 07/29/16 09:00 Active 1 tab PO DAILY Non-Formulary Medication [NF Drug] Med 07/28/16 21:00 Active 40 each PO BEDTIME Rosuvastatin [Crestor] Med 07/28/16 21:00 Active 20 mg PO BEDTIME Sertraline [Zoloft] Med 07/29/16 09:00 Active 50 mg PO DAILY Sodium Chloride 0.9% @ 150 MLS/HR (1000ml) Med 07/28/16 17:15 Ordered Sodium Chloride 0.9% [Normal Saline] 1,000 ml IV ASDIRECTED Vancomycin [Vancocin 125 MG/5 ML Soln] Med 07/28/16 21:00 Ordered 125 mg PO QID Warfarin [Coumadin] Med 07/29/16 16:00 Active 5 mg PO SUTUWETHFRSA Warfarin [Coumadin] Med 07/28/16 16:00 Active 7.5 mg PO Mo@1600 Medication Orders Allopurinol (Zyloprim) 100 mg PO DAILY [facility] Aspirin (Halfprin) 81 mg PO DAILY [facility] Benzonatate (Tessalon Perles) 100 mg PO Q8H PRN PRN Reason: Cough Cetirizine HCl (Zyrtec) 10 mg PO DAILY [facility] Cholecalciferol (Vitamin D3) 2,000 units PO DAILY [facility] Fluticasone Propionate (Flonase) 0 gm NASBOTH DAILY [facility] Levothyroxine Sodium (Synthroid) 88 mcg PO DAILY@0600 [facility] Magnesium Oxide (Magnesium Oxide) 400 mg PO BID [facility]INE Multivitamins/Minerals/Vitamin C (Tab-A-Masoud) 1 tab PO DAILY [facility]INE Non-Formulary Medication (Fluticasone/Salmeterol [Advair 250-50 Diskus]) 1 puff INH BID [facility]STINE Non-Formulary Medication (Insulin Glarg,Human.Rec.Analog [Lantus Solostar]) 34 unit SQ BEDTIME [facility] Non-Formulary Medication (Insulin Lispro [Humalog]) 8 unit SQ ,,17 [facility]INE Non-Formulary Medication 1 Each ( Rosuvastatin [ Crestor] 40 Mg) * Ptom 20 mg PO BEDTIME [facility]INE (Quinipril 40mg) 40 each PO BEDTIME [facility] Ondansetron HCl (Zofran) 4 mg IV Q6H PRN PRN Reason: Nausea/Vomiting Sertraline HCl (Zoloft) 50 mg PO DAILY [facility] Sodium Chloride (Saline Flush) 10 ml FLUSH ASDIRECTED PRN PRN Reason: Keep Vein Open Last Admin: 07/28/16 09:07 Dose: 10 ml Warfarin Sodium (Coumadin) 5 mg PO SUTUWETHFRSA [facility] Warfarin Sodium (Coumadin) 7.5 mg PO Mo@1600 [facility] Last Admin: 07/28/16 16:21 Dose: 7.5 mg Assessment/Plan Comment:: We will start treatment for C. difficile as we wait for the PCR DNA. I elected to start vancomycin 125 mg orally 4 times a day. I would replace her fluids with crystalloids, and recheck basic metabolic profile in morning. The lymphocytosis is suspicious for chronic leukemia, I did order for a peripheral smear in the blood. The kidneys seems to been insulted as such I believe the fluids would be helpful. The rest of the home medications will be continued.
[2016-07-28] MEDS: Sodium Chloride 0.9% 1,000 ML IV SCH (17:45)
[2016-07-28] MEDS: INSULIN LISPRO 8 UNIT SQ SCH (17:50)
[2016-07-28] MEDS ORDERED: Loperamide 2 MG Cap PO PRN (18:17)
[2016-07-28] MEDS ORDERED: metroNIDAZOLE 500 MG Tab PO SCH (18:30)
[2016-07-28] MEDS ORDERED: [UNRECOGNIZED DRUG - OTHER] SQ SCH (21:00)
[2016-07-28] MEDS ORDERED: ROSUVASTATIN 40 MG PO SCH (21:00)
[2016-07-28] MEDS ORDERED: INSULIN GLARGINE SQ SCH (21:00)
[2016-07-28] MEDS: Non-Formulary Medication 1 Each (Fluticasone/Salmeterol [Advair 250-50 Diskus] 1 PUFF) INH SCH (21:01)
[2016-07-28] MEDS: Magnesium Oxide 400 MG Tab *PTOM PO SCH (21:04)
[2016-07-28] MEDS: Vancomycin 125 MG/5 ML ML Oral Solution PO SCH (21:45)
[2016-07-29] MEDS: Sodium Chloride 0.9% 1,000 ML IV SCH ×2 (00:33→07:15)
[2016-07-29] MEDS ORDERED: Levothyroxine 88 MCG Tab *PTOM PO SCH (06:00)
[2016-07-29] MEDS: Non-Formulary Medication 1 Each (Fluticasone/Salmeterol [Advair 250-50 Diskus] 1 PUFF) INH SCH (08:51)
[2016-07-29] MEDS: Magnesium Oxide 400 MG Tab *PTOM PO SCH (08:52)
[2016-07-29] MEDS ORDERED: Multivitamin Tab *PTOM PO SCH (09:00)
[2016-07-29] MEDS ORDERED: Allopurinol 100 MG Tab *PTOM PO SCH (09:00)
[2016-07-29] MEDS ORDERED: CHOLECALCIFEROL 1000 UNIT PO SCH (09:00)
[2016-07-29] MEDS ORDERED: Sertraline 50 MG Tab *PTOM PO SCH (09:00)
[2016-07-29] MEDS ORDERED: Fluticasone Propionate Nasal Spray 16 GM Bottle *PTOM NASBOTH SCH (09:00)
[2016-07-29] MEDS ORDERED: Cetirizine 10 MG Tab *PTOM PO SCH (09:00)
--- NOTE | 2016-07-29 09:19 | PN ---
DATE SEEN: 07/29/2016 REASON FOR VISIT: Diarrhea. HISTORY OF PRESENT ILLNESS: This is an 86-year-old female, who was admitted because of diarrhea yesterday. The diarrhea seems to have improved. She got oral vancomycin yesterday. She feels better this morning. Denies any pain or weakness. She has a history of renal failure. Creatinine was 2.1 on admission; it is 1.7 this morning. White cell count came down to 17.0. REVIEW OF SYSTEMS: No vomiting or nausea. ALLERGIES: Reviewed. PAST MEDICAL HISTORY: C. diff, type 2 diabetes, hypertension. PHYSICAL EXAMINATION: GENERAL: Nontoxic and afebrile. ABDOMEN: Soft with no tenderness to palpation. EXTREMITIES: No edema. MENTAL STATUS: Alert. LABORATORY DATA: As mentioned above. IMPRESSION: 1. Diarrhea, possibly C. diff. 2. Mild hypokalemia. 3. Acute renal failure with some improvement. 4. Leukocytosis likely due to infection. PLAN: Discharge the patient home on oral vancomycin and potassium replacement and drink lots of fluids and follow up with PCP in the next 1 week. Return to the ED with any worsening symptoms. /[id number] DIANA/JAIR
[2016-07-29] MEDS: Vancomycin 125 MG/5 ML ML Oral Solution PO SCH ×2 (09:34→12:53)
[2016-07-29] MEDS: INSULIN LISPRO 8 UNIT SQ SCH ×2 (09:36→12:44)
[2016-07-29 11:41] VITALS: BP 102/51
[2016-07-29] MEDS ORDERED: Warfarin 5 MG Tab PO SCH (16:00)
== END 2016-07-29 15:25 | disposition home health service (06) ==
LOC: FB.ED 08:47 → FB.MS 11:29
PROVIDERS: ADMIT Family Medicine; ATTEND Family Medicine
DX: R19.7 Diarrhea, unspecified (principal); E11.22 Type 2 diabetes mellitus with diabetic chronic kidney disease; I12.9 Hypertensive chronic kidney disease with stage 1 through stage 4 chronic kidney disease, or unspecified chronic kidney disease; N17.9 Acute kidney failure, unspecified; N18.9 Chronic kidney disease, unspecified; D72.820 Lymphocytosis (symptomatic); Z88.8 Allergy status to other drugs, medicaments and biological substances; Z91.041 Radiographic dye allergy status; Z79.82 Long term (current) use of aspirin; Z79.4 Long term (current) use of insulin; Z79.01 Long term (current) use of anticoagulants; Z79.899 Other long term (current) drug therapy; F41.8 Other specified anxiety disorders; Z90.49 Acquired absence of other specified parts of digestive tract; Z90.710 Acquired absence of both cervix and uterus; Z98.890 Other specified postprocedural states
CPT/HCPCS: 36415; 80048; 80053; 81001; 82962; 83880; 85025; 85610; 87015; 87045; 87046; 87324; 87899; 88104; 93005; 96361; 96374; 96375; 99285; A9270; C9113; G0378; J2405; J7040; J7050; 99217; 99218

== ENCOUNTER 2016-09-17 20:34 | Inpatient (IN) | payer MEDICARE, OTHER ==
[2016-09-17] MEDS ORDERED: Sodium Chloride 0.9% 10 ML Syringe FLUSH PRN (21:42)
[2016-09-17] MEDS ORDERED: Sodium Chloride 0.9% 1,000 ML IV ONE (21:42)
--- NOTE | 2016-09-17 21:46 | EDM.PDOC ---
ED HPI GENERAL MEDICAL PROBLEM - General Chief Complaint: General Stated Complaint: DIARRHEA, CHEST PAIN Time Seen by Provider: 09/17/16 21:15 Source of Information: Reports: Patient, Family History Limitations: Reports: No Limitations - History of Present Illness INITIAL COMMENTS - FREE TEXT/NARRATIVE: c/o D x 3 this PM also epigastric pain relieved by BM, ate lunch, no supper h/o C diff 3x, in hospital here x 2 (admitted 07/12 and 07/28) and Cost once (-08/16). Received antibiotics x 1w twice and then 6w the last time, completing the antibiotics 2d ago no f/c/d has asthma and felt a little SOB with the epigastric pain, yet no wheezing here WBC 19k on 07/12 and 31k on 07/28 had been on vanco 125 mg QID most recently h/o pancreatitis x 1, pt not sure if this was before or after her choly, no alcohol - Related Data Allergies Allergy/AdvReac Type Severity Reaction Status Date / Time atorvastatin Allergy Hives Verified 07/28/16 08:56 pregabalin [From Lyrica] Allergy Cannot Verified 07/28/16 08:56 Remember iv dye Allergy Rash Uncoded 07/12/16 19:41 Home Meds: Home Meds Allopurinol [Zyloprim] 100 mg PO DAILY 11/25/15 [History] Aspirin [Adult Low Dose Aspirin EC] 81 mg PO DAILY 11/25/15 [History] Fluticasone/Salmeterol [Advair 250-50 Diskus] 1 puff INH BID 11/25/15 [History] Hydrochlorothiazide 25 mg PO DAILY 11/25/15 [History] Insulin Glarg,Human.Rec.Analog [Lantus Solostar] 34 unit SQ BEDTIME 11/25/15 [ History] Insulin Lispro [HumaLOG] 8 unit SQ 11/25/15 [History] Levothyroxine [Synthroid] 88 mcg PO DAILY 11/25/15 [History] Quinapril [Accupril] 40 mg PO BEDTIME 11/25/15 [History] Rosuvastatin [Crestor] 20 mg PO BEDTIME 11/25/15 [History] Sertraline [Zoloft] 50 mg PO BEDTIME 11/25/15 [History] Multivitamin [Multivitamins] 1 each PO DAILY 05/18/16 [History] Warfarin [Coumadin] 5 mg PO SUTUWETHFRSA 05/18/16 [History] Warfarin [Coumadin] 7.5 mg PO MO 05/18/16 [History] Cholecalciferol (Vitamin D3) [Vitamin D] 2,000 unit PO DAILY 05/19/16 [History] amLODIPine [Norvasc] 5 mg PO DAILY 05/19/16 [History] Benzonatate [Tessalon Perles] 100 mg PO Q8HR PRN 07/08/16 [History] Cetirizine [ZyrTEC] 10 mg PO DAILY 07/08/16 [History] Fluticasone Furoate [Flonase Sensimist] 9.9 ml NS DAILY 07/08/16 [History] Magnesium Oxide 400 mg PO BID 07/08/16 [History] Potassium Chloride [Klor-Con M20] 20 meq PO DAILY #10 tab.er 07/29/16 [Rx] Vancomycin [Vancocin 125 MG/5 ML Soln] 125 mg PO QID #40 ml 07/29/16 [Rx] Past Medical History HEENT History: Reports: Allergic Rhinitis, Cataract, Hard of Hearing, Impaired Vision, Other (See Below) Other HEENT History: no peripheral vision on right since 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: Musculoskeletal History: Reports: Arthritis, Back Pain, Chronic, Fibromyalgia, Gout Neurological History: Reports: CVA, Headaches, Chronic Psychiatric History: Reports: Anxiety, Depression Endocrine/Metabolic History: Reports: Diabetes, Type II Hematologic History: Reports: None Immunologic History: Reports: None Oncologic (Cancer) History: Reports: None Dermatologic History: Reports: None - Infectious Disease History Infectious Disease History: Reports: Chicken Pox, Influenza, Measles, Mumps, Shingles - Past Surgical History HEENT Surgical History: Reports: Cataract Surgery Musculoskeletal Surgical History: Reports: Carpal Tunnel, Other (See Below) Social & Family History - Family History Family Medical History: Noncontributory HEENT: Reports: Impaired Vision Cardiac: Reports: Heart Failure, High Cholesterol, Hypertension, [place] Respiratory: Reports: Asthma GI: Reports: Colon Polyps : Reports: Other (See Below) Other Family History: brother had blood disease that led to kidney disease OBGYN: Reports: Fibroids, Musculoskeletal: Reports: Gout Neurological: Reports: CVA, Migraines Psychiatric: Reports: Depression Endocrine/Metabolic: Reports: Diabetes, type II Hematologic: Reports: None Immunologic: Reports: Solid Organ Transplant Dermatologic: Reports: Eczema Oncologic: Reports: Skin - Tobacco Use Smoking Status *Q: Never Smoker Second Hand Smoke Exposure: No - Caffeine Use Caffeine Use: Reports: None - Recreational Drug Use Recreational Drug Use: No ED ROS GENERAL - Review of Systems Review Of Systems: See Below Constitutional: Reports: No Symptoms HEENT: Reports: No Symptoms Respiratory: Reports: No Symptoms Cardiovascular: Reports: No Symptoms Endocrine: Reports: No Symptoms GI/Abdominal: Reports: Abdominal Pain, Diarrhea, Nausea : Reports: No Symptoms Musculoskeletal: Reports: No Symptoms Skin: Reports: No Symptoms Neurological: Reports: No Symptoms Psychiatric: Reports: No Symptoms Hematologic/Lymphatic: Reports: No Symptoms Immunologic: Reports: No Symptoms ED EXAM, GENERAL - Physical Exam Exam: See Below Exam Limited By: No Limitations General Appearance: Alert, WD/WN, No Apparent Distress, Other (pleasant, [place], no distress) Nose: Normal Inspection, Normal Mucosa, No Blood Throat/Mouth: Normal Inspection, Normal Oropharynx, Normal Voice, No Airway Compromise Head: Atraumatic, Normocephalic Neck: Normal Inspection, Supple, Non-Tender, Full Range of Motion Respiratory/Chest: No Respiratory Distress, Lungs Clear, Normal Breath Sounds, No Accessory Muscle Use, Chest Non-Tender, Other (fair to good AE, no wheeze) Cardiovascular: Other (irreg irreg, 2/6 YONY at LSB, no s3/s4) GI/Abdominal: Normal Bowel Sounds, Other (mild distention, mild tender epigastrium, NT elsewhere, no CVAT, no guard/rebound) Back Exam: Normal Inspection, Full Range of Motion, NT Extremities: Other (dec'd turgor without tenting UEs) Neurological: Alert, Oriented, CN II-XII Intact, Normal Cognition, No Motor/ Sensory Deficits Psychiatric: Normal Affect, Normal Mood Skin Exam: Warm, Dry, Intact, Normal Color, No Rash Lymphatic: No Adenopathy Course - Orders/Labs/Meds Orders: Active Orders 24 hr Category Date Time Status EKG Documentation Completion [RC] ASDIRECTED Care 09/17/16 21:39 Active Abdomen 2V AP Flat Upright [CR] Stat Exams 09/17/16 21:39 Taken CDIFF TOXIN A+B GROUP [OP] Stat Lab 09/17/16 21:37 Ordered LIPASE [REF] Stat Lab 09/17/16 21:51 Received Morphine Med 09/18/16 00:06 Once 2 mg IVPUSH ONETIME ONE Sodium Chloride 0.9% [Saline Flush] Med 09/17/16 21:42 Active 10 ml FLUSH ASDIRECTED PRN Saline Lock Insert [OM.PC] Routine Oth 09/17/16 21:42 Ordered EKG 12 Lead [EK] Routine Ther 09/17/16 21:38 Ordered Medication Orders Morphine Sulfate (Morphine) 2 mg IVPUSH ONETIME ONE Stop: 09/18/16 00:07 Sodium Chloride (Saline Flush) 10 ml FLUSH ASDIRECTED PRN PRN Reason: Keep Vein Open Labs: Laboratory Tests 09/17/16 09/17/16 09/17/16 Range/Units 21:51 21:51 21:51 WBC 12.5 H (4.5-12.0) X10-3/uL RBC 3.98 (3.23-5.20) x10(6)uL Hgb 12.4 (11.5-15.5) g/dL Hct 36.1 (30.0-51.3) % MCV 90.9 (80-96) fL MCH 31.1 (27.7-33.6) pg MCHC 34.2 (32.2-35.4) g/dL RDW 14.1 (11.5-15.5) % Plt Count 271 (125-369) X10(3)uL MPV 8.4 (7.4-10.4) fL Add Manual Diff Yes Neutrophils % (Manual) 83 H (46-82) % Band Neutrophils % 4 (0-6) % Lymphocytes % (Manual) 7 L (13-37) % Monocytes % (Manual) 6 (4-12) % PT (8.7-11.1) INR (0.89-1.13) Sodium 135 (135-145) mmol/L Potassium 4.4 D (3.5-5.3) mmol/L Chloride 103 (100-110) mmol/L Carbon Dioxide 22 L (23-29) mmol/L BUN 43 H (8-23) mg/dL Creatinine 1.5 H (0.6-1.3) mg/dL Est Cr Clr Drug Dosing TNP Estimated GFR (MDRD) 33 L (>60) BUN/Creatinine Ratio 28.7 H (9-20) Glucose 169 H D (80-116) mg/dL Calcium 9.0 (8.6-10.2) mg/dL Total Bilirubin 0.2 (0.1-1.3) mg/dL AST 32 H D (5-27) IU/L ALT 26 D (14-26) IU/L Alkaline Phosphatase 82 (56-112) IU/L Troponin I 0.01 L (0.02-0.06) NG/ML C-Reactive Protein < 0.5 (0.0-1.0) mg/dL Total Protein 7.3 (6.0-8.0) g/dL Albumin 3.8 (3.2-4.6) g/dL Globulin 3.5 g/dL Albumin/Globulin Ratio 1.1 Amylase (28-100) U/L 09/17/16 09/17/16 Range/Units 21:51 21:51 WBC (4.5-12.0) X10-3/uL RBC (3.23-5.20) x10(6)uL Hgb (11.5-15.5) g/dL Hct (30.0-51.3) % MCV (80-96) fL MCH (27.7-33.6) pg MCHC (32.2-35.4) g/dL RDW (11.5-15.5) % Plt Count (125-369) X10(3)uL MPV (7.4-10.4) fL Add Manual Diff Neutrophils % (Manual) (46-82) % Band Neutrophils % (0-6) % Lymphocytes % (Manual) (13-37) % Monocytes % (Manual) (4-12) % PT 16.6 H (8.7-11.1) INR 1.62 H (0.89-1.13) Sodium (135-145) mmol/L Potassium (3.5-5.3) mmol/L Chloride (100-110) mmol/L Carbon Dioxide (23-29) mmol/L BUN (8-23) mg/dL Creatinine (0.6-1.3) mg/dL Est Cr Clr Drug Dosing Estimated GFR (MDRD) (>60) BUN/Creatinine Ratio (9-20) Glucose (80-116) mg/dL Calcium (8.6-10.2) mg/dL Total Bilirubin (0.1-1.3) mg/dL AST (5-27) IU/L ALT (14-26) IU/L Alkaline Phosphatase (56-112) IU/L Troponin I (0.02-0.06) NG/ML C-Reactive Protein (0.0-1.0) mg/dL Total Protein (6.0-8.0) g/dL Albumin (3.2-4.6) g/dL Globulin g/dL Albumin/Globulin Ratio Amylase 65 (28-100) U/L Meds: Medications Generic Name Dose Route Start Last Admin Trade Name Freq PRN Reason Stop Dose Admin Morphine Sulfate 2 mg 09/18/16 00:06 Morphine IVPUSH 09/18/16 00:07 ONETIME ONE Sodium Chloride 10 ml 09/17/16 21:42 Saline Flush FLUSH ASDIRECTED PRN Keep Vein Open Discontinued Medications Generic Name Dose Route Start Last Admin Trade Name Freq PRN Reason Stop Dose Admin Sodium Chloride 1,000 mls @ 999 mls/hr 09/17/16 21:42 09/17/16 22:22 Normal Saline IV 09/17/16 22:42 999 mls/hr .BOLUS ONE Administration - Re-Assessments/Exams Free Text/Narrative Re-Assessment/Exam: 09/18/16 00:07 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 Pt did have colonoscopy done in [place] on 07/11 that showed 1 polyp, unknown if there were tics as per pt and dtr. Tx options could include a higher dose of vanco for a shorter length of time ( e.g., 500 mg qid x 10d, altho cost would be $4,500) or even vanco plus IV metronidazole via a PICC line. May be reasonable to consult with ID by phone in AM. Pt and dtr agree to admit to observation bed. No fever, WBC only 12.4 with slight left shift. KUB shows little stool and no wall edema. Of note is the CRP that is <0.5. Pt reports she is still have mucus in her stool. Departure - Departure Time of Disposition: 00:11 Disposition: Refer to Observation Condition: fair Clinical Impression: Diarrhea - Discharge Information Forms: ED Department Discharge - My Orders Last 24 Hours: My Active Orders 09/17/16 21:37 CDIFF TOXIN A+B GROUP [OP] Stat 09/17/16 21:38 EKG 12 Lead [EK] Routine 09/17/16 21:39 EKG Documentation Completion [RC] ASDIRECTED Abdomen 2V AP Flat Upright [CR] Stat 09/17/16 21:42 Sodium Chloride 0.9% [Saline Flush] 10 ml FLUSH ASDIRECTED PRN Saline Lock Insert [OM.PC] Routine 09/17/16 21:51 LIPASE [REF] Stat 09/18/16 00:06 Morphine 2 mg IVPUSH ONETIME ONE - Assessment/Plan Last 24 Hours: My Active Orders 09/17/16 21:37 CDIFF TOXIN A+B GROUP [OP] Stat 09/17/16 21:38 EKG 12 Lead [EK] Routine 09/17/16 21:39 EKG Documentation Completion [RC] ASDIRECTED Abdomen 2V AP Flat Upright [CR] Stat 09/17/16 21:42 Sodium Chloride 0.9% [Saline Flush] 10 ml FLUSH ASDIRECTED PRN Saline Lock Insert [OM.PC] Routine 09/17/16 21:51 LIPASE [REF] Stat 09/18/16 00:06 Morphine 2 mg IVPUSH ONETIME ONE
[2016-09-18] MEDS ORDERED: Morphine 2 MG/ML Syringe IVPUSH ONE (00:06)
[2016-09-18] MEDS ORDERED: Ondansetron 4 MG/2 ML SDV IV PRN (01:12)
[2016-09-18] MEDS ORDERED: Acetaminophen 325 MG Tab PO PRN (01:12)
[2016-09-18] MEDS ORDERED: Benzonatate 100 MG Cap PO PRN (01:19)
[2016-09-18] MEDS ORDERED: Sodium Chloride 0.9% 1,000 ML IV SCH (01:30)
[2016-09-18] MEDS ORDERED: Warfarin 5 MG Tab PO SCH (01:30)
[2016-09-18] MEDS ORDERED: Warfarin 5 MG Tab**OWN MED PO SCH (04:47)
[2016-09-18] MEDS: Levothyroxine 88 MCG Tab PO SCH (06:09)
[2016-09-18] MEDS ORDERED: Cetirizine 10 MG Tab PO SCH (09:00)
[2016-09-18] MEDS ORDERED: Potassium Chloride 20 MEQ Tab.ER PO SCH (09:00)
[2016-09-18] MEDS ORDERED: Hydrochlorothiazide 25 MG Tab PO SCH (09:00)
[2016-09-18] MEDS ORDERED: Vancomycin 125 MG/5 ML ML Oral Solution PO SCH (09:00)
[2016-09-18] MEDS ORDERED: Levothyroxine 88 MCG Tab PO SCH (09:00)
[2016-09-18] MEDS: Insulin Lispro 100 Unit/ML 3 ML KwikPen SUBCUT SCH ×4 (10:36→18:28)
[2016-09-18] MEDS: Fluticasone Propionate Nasal Spray 16 GM Bottle *PTOM NASBOTH SCH (10:37)
[2016-09-18] MEDS: Aspirin 81 MG Tab.EC PO SCH (10:38)
[2016-09-18] MEDS: amLODIPine 5 MG Tab PO SCH (10:39)
[2016-09-18] MEDS: Cholecalciferol (Vitamin D3) 1,000 Unit Tab PO SCH (10:41)
[2016-09-18] MEDS: Allopurinol 100 MG Tab PO SCH (10:41)
[2016-09-18] MEDS: Multivitamins, Therapeutic with Minerals Tab PO SCH (10:42)
--- NOTE | 2016-09-18 10:42 | PCM.HP ---
H&P History of Present Illness - General Date of Service: 09/18/16 Admit Problem/Dx: Admission Diagnosis/Problem Admission Diagnosis/Problem Diarrhea Source of Information: Patient History Limitations: Reports: No Limitations - History of Present Illness Initial Comments - Free Text/Narative: 86-year-old female admitted from [facility] because of the diarrhea. The diarrhea started yesterday, sudden in onset, 2 days after she finished oral vancomycin for C. difficile. This is the fourth episode in 2 months. Watery, foul-smelling stools with no blood. Overnight she developed a fever and chills. She also complains of a cold,with a runny nose but denies cough chest pain or shortness of breath. [place] type 2 diabetes stable, hypertension stable atrial fibrillation on long-term anticoagulation. - Related Data Allergies/Adverse Reactions: Allergies Allergy/AdvReac Type Severity Reaction Status Date / Time atorvastatin Allergy Hives Verified 07/28/16 08:56 pregabalin [From Lyrica] Allergy Cannot Verified 07/28/16 08:56 Remember iv dye Allergy Rash Uncoded 07/12/16 19:41 Home Medications: Home Meds Allopurinol [Zyloprim] 100 mg PO DAILY 11/25/15 [History] Aspirin [Adult Low Dose Aspirin EC] 81 mg PO DAILY 11/25/15 [History] Insulin Glarg,Human.Rec.Analog [Lantus Solostar] 34 unit SQ BEDTIME 11/25/15 [ History] Insulin Lispro [HumaLOG] 8 unit SQ 11/25/15 [History] Levothyroxine [Synthroid] 88 mcg PO DAILY 11/25/15 [History] Rosuvastatin [Crestor] 20 mg PO BEDTIME 11/25/15 [History] Multivitamin [Multivitamins] 1 each PO DAILY 05/18/16 [History] Warfarin [Coumadin] 5 mg PO SUTUWETHFRSA 05/18/16 [History] Cholecalciferol (Vitamin D3) [Vitamin D] 2,000 unit PO DAILY 05/19/16 [History] amLODIPine [Norvasc] 5 mg PO DAILY 05/19/16 [History] Benzonatate [Tessalon Perles] 100 mg PO Q8HR PRN 07/08/16 [History] Magnesium Oxide 400 mg PO BID 07/08/16 [History] Fluticasone Propionate [Flonase] 2 spray NASBOTH DAILY 09/18/16 [History] Fluticasone/Salmeterol [Advair Diskus 500-50] 1 puff IH BID 09/18/16 [History] Metoprolol Tartrate 25 mg PO BID 09/18/16 [History] Quinapril [Accupril] 10 mg PO BEDTIME 09/18/16 [History] Sertraline [Zoloft] 50 mg PO BEDTIME 09/18/16 [History] Warfarin [Coumadin] 7.5 mg PO MO 09/18/16 [History] Past Medical History HEENT History: Reports: Allergic Rhinitis, Cataract, Hard of Hearing, Impaired Vision, Other (See Below) Other HEENT History: no peripheral vision on right since 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: Musculoskeletal History: Reports: Arthritis, Back Pain, Chronic, Fibromyalgia, Gout Neurological History: Reports: CVA, Headaches, Chronic Psychiatric History: Reports: Anxiety, Depression Endocrine/Metabolic History: Reports: Diabetes, Type II Hematologic History: Reports: None Immunologic History: Reports: None Oncologic (Cancer) History: Reports: None Dermatologic History: Reports: None - Infectious Disease History Infectious Disease History: Reports: Chicken Pox, Influenza, Measles, Mumps, Shingles - Past Surgical History Head Surgeries/Procedures: Reports: None HEENT Surgical History: Reports: Cataract Surgery Cardiovascular Surgical History: Reports: Other (See Below) Other Cardiovascular Surgeries/Procedures: open heart surgery for tumor Respiratory Surgical History: Reports: None GI Surgical History: Reports: None Female Surgical History: Reports: Hysterectomy Other Neurological Surgeries/Procedures: 3 back surgeries, states she needs a fourth. Musculoskeletal Surgical History: Reports: Carpal Tunnel, Other (See Below) Social & Family History - Family History Family Medical History: Noncontributory HEENT: Reports: Impaired Vision Cardiac: Reports: Heart Failure, High Cholesterol, Hypertension, CT Respiratory: Reports: Asthma GI: Reports: Colon Polyps : Reports: Other (See Below) Other Family History: brother had blood disease that led to kidney disease OBGYN: Reports: Fibroids, Musculoskeletal: Reports: Gout Neurological: Reports: CVA, Migraines Psychiatric: Reports: Depression Endocrine/Metabolic: Reports: Diabetes, type II Hematologic: Reports: None Immunologic: Reports: Solid Organ Transplant Dermatologic: Reports: Eczema Oncologic: Reports: Skin - Tobacco Use Smoking Status *Q: Never Smoker Second Hand Smoke Exposure: No - Caffeine Use Caffeine Use: Reports: Coffee Caffeine Use Comment: Occassional - Recreational Drug Use Recreational Drug Use: No H&P Review of Systems - Review of Systems: Review Of Systems: ROS reveals no pertinent complaints other than HPI. Exam - Exam Exam: See Below - Vital Signs Vital Signs: Last Vital Signs Temp 102.6 F H 09/18/16 05:13 Pulse 110 H 09/18/16 05:13 Resp 16 09/18/16 05:13 BP 145/67 H 09/18/16 05:13 Pulse Ox 94 L 09/18/16 05:13 Weight: 72.167 kg - Exam General: Alert, Oriented, 4 HEENT: PERRLA, Hearing Intact, Mucosa Moist & [place], Nares Patent, Normal Nasal Septum, Posterior Pharynx Clear, Conjunctiva Clear, EOMI, EACs Clear, TMs Clear Neck: Supple, Trachea Midline, 2 Lungs: Clear to Auscultation, Normal Respiratory Effort Cardiovascular: Regular Rate, Regular Rhythm Abdomen: Tenderness (LLQ) (Female) Exam: Deferred Rectal (Female) Exam: Normal Exam, Normal Rectal Tone Back Exam: Normal Inspection, Full Range of Motion, NT Extremities: 3, Normal Inspection, 10 Skin: Warm, Dry, Intact Neurological: Cranial Nerves Intact, Reflexes Equal Bilateral Neuro Extensive - Mental Status: Alert, Oriented x3, Normal Mood/Affect, Normal Cognition Neuro Extensive - Motor, Sensory, Reflexes: CN II-XII Intact, Normal Gait, Normal Reflexes Psychiatric: Alert, Normal Affect, Normal Mood - Patient Data Lab Results last 24 hrs: Laboratory Results - last 24 hr 09/18/16 Range/Units 06:14 POC Glucose 156 H (80-116) mg/dL Result Diagrams: 09/17/16 21:51 09/17/16 21:51 *Q Meaningful Use (ADM) - VTE *Q VTE Criteria *Q: - Stroke *Q Stroke Criteria *Q: - AMI *Q AMI Criteria *Q: - Problem List (1) C. difficile colitis SNOMED Code(s): 328239108 ICD Code: A04.7 - ENTEROCOLITIS DUE TO CLOSTRIDIUM DIFFICILE Status: Acute Priority: High Current Visit: Yes (2) Fever SNOMED Code(s): 352064745 ICD Code: R50.9 - FEVER, UNSPECIFIED Status: Acute Current Visit: Yes Qualifiers: Fever type: unspecified Qualified Code(s): R50.9 - Fever, unspecified (3) Diarrhea SNOMED Code(s): 90421074 ICD Code: R19.7 - DIARRHEA, UNSPECIFIED Status: Acute Current Visit: Yes Qualifiers: Diarrhea type: presumed infectious Qualified Code(s): A09 - Infectious gastroenteritis and colitis, unspecified (4) Diabetes type 2, controlled SNOMED Code(s): 22121145 ICD Code: E11.9 - TYPE 2 DIABETES MELLITUS WITHOUT COMPLICATIONS Status: Chronic Current Visit: No Qualifiers: Diabetes mellitus complication status: without complication Diabetes mellitus skilled nursing insulin use: without skilled nursing use Qualified Code(s): E11.9 - Type 2 diabetes mellitus without complications (5) HTN (hypertension) SNOMED Code(s): 74443416 ICD Code: I10 - ESSENTIAL (PRIMARY) HYPERTENSION Status: Chronic Current Visit: No Qualifiers: Hypertension type: essential hypertension Qualified Code(s): I10 - Essential (primary) hypertension (6) Afib SNOMED Code(s): 44717337 ICD Code: I48.91 - UNSPECIFIED ATRIAL FIBRILLATION Status: Acute Current Visit: Yes Qualifiers: Atrial fibrillation type: chronic Qualified Code(s): I48.2 - Chronic atrial fibrillation (7) Long-term (current) use of anticoagulants SNOMED Code(s): 773088584 ICD Code: Z79.01 - SENIOR CARE (CURRENT) USE OF ANTICOAGULANTS Status: Chronic Priority: Medium Current Visit: Yes Problem List Initiated/Reviewed/Updated: Yes Orders Last 24hrs: Active Orders 24 hr Category Date Time Status Patient Status [ADT] Routine ADT 09/18/16 01:13 Active Blood Glucose Check, Bedside [RC] QIDACANDBED Care 09/18/16 01:12 Active Oxygen Therapy [] PRN Care 09/18/16 01:13 Active Up With Assistance [RC] ASDIRECTED Care 09/18/16 01:12 Active Vital Signs [RC] Q4H Care 09/18/16 01:13 Active Consistent Carbohydrate Diet [DIET] Diet 09/18/16 Breakfast Active Abdomen Pelvis w Cont [CT] Routine Exams 09/18/16 10:34 Ordered CBC WITH AUTO DIFF [HEME] AM Lab 09/19/16 05:11 Ordered COMPREHENSIVE METABOLIC PN,CMP [CHEM] AM Lab 09/19/16 05:11 Ordered UA W/MICROSCOPIC [URIN] Routine Lab 09/18/16 10:35 Uncollected Acetaminophen [Tylenol] Med 09/18/16 01:12 Active 650 mg PO Q4H PRN Allopurinol [Zyloprim] Med 09/18/16 09:00 Active 100 mg PO DAILY Aspirin [Halfprin] Med 09/18/16 09:00 Active 81 mg PO DAILY Benzonatate [Tessalon Perles] Med 09/18/16 01:19 Active 100 mg PO Q8H PRN Cholecalciferol (Vitamin D3) [Vitamin D3] Med 09/18/16 09:00 Active 2,000 units PO DAILY Fluticasone Propionate [Flonase] Med 09/18/16 09:00 Active 0 gm NASBOTH DAILY Fluticasone/Salmeterol [Advair 250-50 Diskus] Med 09/18/16 10:15 Active 1 puff INH BID Insulin Glarg,Human.Rec.Analog [LantUS Solostar] Med 09/18/16 21:00 Active 34 units SUBCUT BEDTIME Insulin Lispro [HumaLOG] Med 09/18/16 07:00 Active 8 unit SUBCUT 0700,1100,1700 Levothyroxine [Synthroid] Med 09/18/16 06:00 Active 88 mcg PO 0600 Metoprolol Tartrate [Lopressor] Med 09/18/16 10:00 Active 25 mg PO BID Multivitamins/Minerals [Vitamins and Minerals] Med 09/18/16 09:00 Active 1 tab PO DAILY Ondansetron [Zofran] Med 09/18/16 01:12 Active 4 mg IV Q4H PRN Quinapril [Accupril] Med 09/18/16 21:00 Active 10 mg PO BEDTIME Rosuvastatin [Crestor] Med 09/18/16 21:00 Active 20 mg PO BEDTIME Sertraline [Zoloft] Med 09/18/16 21:00 Active 50 mg PO BEDTIME Sodium Chloride 0.9% [Normal Saline] 1,000 ml Med 09/18/16 09:02 Active IV ASDIRECTED Vancomycin [Vancocin 125 MG/5 ML Soln] Med 09/18/16 09:00 Active 125 mg PO QID Warfarin [Coumadin] Med 09/18/16 04:47 Active 5 mg PO SUTUWETHFRSA Warfarin [Coumadin] Med 09/22/16 01:19 Ordered 7.5 mg PO MO amLODIPine [Norvasc] Med 09/18/16 09:00 Active 5 mg PO DAILY Resuscitation Status Routine Resus Stat 09/18/16 01:12 Ordered Medication Orders Acetaminophen (Tylenol) 650 mg PO Q4H PRN PRN Reason: Pain (Mild 1-3)/fever Last Admin: 09/18/16 06:09 Dose: 650 mg Allopurinol (Zyloprim) 100 mg PO DAILY [facility] Amlodipine Besylate (Norvasc) 5 mg PO DAILY [facility] Aspirin (Halfprin) 81 mg PO DAILY [facility] Benzonatate (Tessalon Perles) 100 mg PO Q8H PRN PRN Reason: Cough Cholecalciferol (Vitamin D3) 2,000 units PO DAILY [facility] Fluticasone Propionate (Flonase) 0 gm NASBOTH DAILY [facility] Sodium Chloride (Normal Saline) 1,000 mls @ 125 mls/hr IV ASDIRECTED [facility] Insulin Glargine (Lantus Solostar) 34 units SUBCUT BEDTIME [facility] Insulin Human Lispro (Humalog) 8 unit SUBCUT 0700,1100,1700 [facility] Levothyroxine Sodium (Synthroid) 88 mcg PO 0600 [facility] Last Admin: 09/18/16 06:09 Dose: 88 mcg Metoprolol Tartrate (Lopressor) 25 mg PO BID [facility] Multivitamins/Minerals (Vitamins And Minerals) 1 tab PO DAILY [facility] Advair 500/50 *Ptom 1 puff INH BID [facility] Crestor 40mg Tablet 20 mg PO BEDTIME [facility] Ondansetron HCl (Zofran) 4 mg IV Q4H PRN PRN Reason: Nausea/Vomiting Quinapril HCl (Accupril) 10 mg PO BEDTIME [facility] Sertraline HCl (Zoloft) 50 mg PO BEDTIME [facility] Sodium Chloride (Saline Flush) 10 ml FLUSH ASDIRECTED PRN PRN Reason: Keep Vein Open Last Admin: 09/18/16 00:35 Dose: 10 ml Vancomycin HCl (Vancocin 125 Mg/5 Ml Soln) 125 mg PO QID [facility] Warfarin Sodium (Coumadin) 7.5 mg PO MO [facility] Warfarin Sodium (Coumadin) 5 mg PO SUTUWETHFRSA [facility] Last Admin: 09/18/16 04:47 Dose: 5 mg Assessment/Plan Comment:: I have ordered a CT of the abdomen pelvis to evaluate the left lower quadrant abdominal pain which is presumed to be due to the C. difficile colitis. Stool is pending for DNA PCR of C. difficile. In the meantime would replace IV fluids , and treat with oral vancomycin. The rest of the home medications will be reconciled..
[2016-09-18] MEDS: Vancomycin 125 MG/5 ML ML Oral Solution PO SCH ×4 (10:48→22:01)
[2016-09-18] MEDS: Metoprolol Tartrate 25 MG Tab PO SCH ×2 (10:49→21:58)
[2016-09-18] MEDS: ADVAIR INH SCH ×2 (10:51→21:49)
[2016-09-18] MEDS: Sodium Chloride 0.9% 1,000 ML IV SCH ×2 (14:06→22:03)
--- NOTE | 2016-09-18 16:12 | CT ---
INDICATION: Abdomen pain, question diverticulitis. CT ABDOMEN AND PELVIS WITHOUT CONTRAST: Spiral 1.25-mm axial sections were obtained through the abdomen and pelvis with oral contrast only per Dr. Capellan 's request, with a history of IV contrast reactions and renal disease. Exam date is 09/18/2016 and is compared with 07/12/2016. Total Exam DLP = 1088.70 mGy-cm. Somewhat heavy markings are again noted at the left lung base, likely fibrotic in nature. Calcifications are noted in the abdominal aorta, renal arteries, minimally in the superior mesenteric artery, also in the splenic artery, iliac and femoral arteries. The colon is abnormal with pericolonic fat stranding and a shaggy wall and thickening of the wall throughout most of the extent of the colon. This widespread finding is likely on the basis of ulcerative colitis, but should be correlated clinically. Ischemic colitis could also be present, especially with this patients abnormal calcified vessels. A definite obstructive process or free air was not identified. The gallbladder, uterus, and appendix were not visualized compatible with history of their removal. The urinary bladder was unremarkable. No other organomegaly, mass lesions, or free fluid collections were identified in the abdomen or pelvis. No definite hernias were seen. Renal cortical scarring is suggested with renal fascial thickening and some irregularities of the renal cortices. No obstructive uropathy was suggested. No renal calcinosis noted. The spleen and liver appeared grossly normal. The adrenal glands appeared normal. What appears to be the pancreas is markedly fatty replaced. No retroperitoneal mass was seen. Fusions are noted in the L1 through L5 spine. IMPRESSION: Abnormal colon which may be on the basis of ischemic colitis or more likely ulcerative colitis. Direct visualization is recommended for further evaluation. CT PELVIS: Examination of the pelvis was obtained by CT as noted above and revealed the colon to be abnormal with thickening of the wall and somewhat shaggy appearance. There is some pericolonic fat stranding of mild degree. The entire colon appears to be affected. Report was called to Dr. Capellan at 1540 hours, 09/18/2016. [facility]
--- NOTE | 2016-09-18 16:28 | CR ---
INDICATION: Upper abdominal pain. ABDOMEN: Four images of the abdomen in supine and upright projection revealed fusions in the mid to lower lumbar spine. Dextroconvex scoliosis centered at L2 of mild degree is noted. Evidence of previous surgeries is noted in the epigastrium and right upper quadrant. There are some air-fluid levels in the right colon - ascending colon, which are of questionable significance. They could be related to a paralytic ileus. A mechanically obstructive process is felt to be less likely, as no upstream dilatation of the bowel was seen. Findings could be on the basis of gastroenteritis, localized paralytic ileus, such as secondary to appendicitis or possibly due to a local process in the colon itself. No free air was identified. No definite mass lesions or nonvascular pathologic calcifications were seen. IMPRESSION: Air-fluid levels at the ascending colon of questionable etiology, as noted above. Otherwise, nonacute - nonspecific abdomen 2-view examination. MTDD
[2016-09-18] MEDS ORDERED: Sertraline 50 MG Tab PO SCH (21:00)
[2016-09-18] MEDS ORDERED: Metoprolol Tartrate 25 MG Tab PO SCH (21:00)
[2016-09-18] MEDS ORDERED: Non-Formulary Medication 1 Each (Fluticasone/Salmeterol [Advair Diskus 500-50] 1 PUFF) IH SCH (21:00)
[2016-09-18] MEDS: Insulin Glargine,Human Rec. Analog 100 Units/ML 3 ML Pen *PTOM SUBCUT SCH (21:49)
[2016-09-18] MEDS: Magnesium Oxide 400 MG Tab PO SCH (21:56)
[2016-09-18] MEDS: CRESTOR 40 MG PO SCH (21:56)
[2016-09-18] MEDS: Sertraline 50 MG Tab PO SCH (21:56)
[2016-09-19] MEDS ORDERED: Warfarin 2.5 MG Tab PO ONE (05:00)
[2016-09-19] MEDS: Sodium Chloride 0.9% 1,000 ML IV SCH ×3 (06:10→22:31)
[2016-09-19] MEDS: Levothyroxine 88 MCG Tab PO SCH (06:12)
[2016-09-19] MEDS: Fluticasone Propionate Nasal Spray 16 GM Bottle *PTOM NASBOTH SCH (08:29)
[2016-09-19] MEDS: Aspirin 81 MG Tab.EC PO SCH (08:31)
[2016-09-19] MEDS: Metoprolol Tartrate 25 MG Tab PO SCH ×2 (08:32→21:04)
[2016-09-19] MEDS: ADVAIR INH SCH ×2 (08:34→21:03)
[2016-09-19] MEDS: Allopurinol 100 MG Tab PO SCH (08:34)
[2016-09-19] MEDS: Magnesium Oxide 400 MG Tab PO SCH ×2 (08:35→21:05)
[2016-09-19] MEDS: amLODIPine 5 MG Tab PO SCH (08:38)
[2016-09-19] MEDS: Cholecalciferol (Vitamin D3) 1,000 Unit Tab PO SCH (08:39)
[2016-09-19] MEDS: Multivitamins, Therapeutic with Minerals Tab PO SCH (08:39)
[2016-09-19] MEDS: Vancomycin 125 MG/5 ML ML Oral Solution PO SCH ×4 (08:58→21:15)
[2016-09-19] MEDS ORDERED: metroNIDAZOLE 500 MG Tab PO SCH (09:00)
[2016-09-19] MEDS ORDERED: Fluticasone Propionate Nasal Spray 16 GM Bottle NASBOTH SCH (09:00)
[2016-09-19] MEDS: Insulin Lispro 100 Unit/ML 3 ML KwikPen SUBCUT SCH ×3 (11:41→16:57)
--- NOTE | 2016-09-19 11:46 | HP ---
ADMISSION DATE: 09/18/2016 REASON FOR VISIT: Recurrent Clostridium difficile UTI. HISTORY OF PRESENT ILLNESS: Sophie Keller is a delightful 86-year-old female from [facility], seen today for followup. She has had three hospitalizations for Clostridium difficile. Response has been brief and not predictable. Presently on oral vancomycin. We will add generic Flagyl in the mean time. IV fluids in place, Complementary Care and Well Being. LABORATORY STUDIES: 09/19/2016, hemoglobin 10.9, hematocrit 36.2, white count 10986, stable. INR 2.0, electrolytes were satisfactory with GFR of 43, urine pending. Microbiology, positive Clostridium difficile, gram-negative rods. Report pending exact pathogen. ASSESSMENT: 1. Recurrent Clostridium difficile. 2. Urinary tract infection. PLAN: We will continue vancomycin 125 mg q.i.d. one weeks duration and add Flagyl 500 mg 1 p.o. t.i.d., one weeks duration. Complementary care and well being. We will plan visit with [place], Gastroenterology in the near future as an outpatient. /[id number] /JAIR
[2016-09-19] MEDS: Warfarin 5 MG Tab PO SCH (16:40)
[2016-09-19] MEDS: metroNIDAZOLE 500 MG Tab PO SCH ×2 (16:41→21:03)
[2016-09-19] MEDS: CRESTOR 40 MG PO SCH (21:05)
[2016-09-19] MEDS: Sertraline 50 MG Tab PO SCH (21:06)
[2016-09-19] MEDS: Insulin Glargine,Human Rec. Analog 100 Units/ML 3 ML Pen *PTOM SUBCUT SCH (21:17)
[2016-09-20] MEDS: Sodium Chloride 0.9% 1,000 ML IV SCH ×2 (06:40→14:49)
[2016-09-20] MEDS: Levothyroxine 88 MCG Tab PO SCH (06:46)
[2016-09-20] MEDS: Insulin Lispro 100 Unit/ML 3 ML KwikPen SUBCUT SCH ×3 (08:12→17:17)
[2016-09-20] MEDS: ADVAIR INH SCH ×2 (08:14→21:07)
[2016-09-20] MEDS: metroNIDAZOLE 500 MG Tab PO SCH ×3 (08:14→21:06)
[2016-09-20] MEDS: Fluticasone Propionate Nasal Spray 16 GM Bottle *PTOM NASBOTH SCH (08:14)
[2016-09-20] MEDS: Allopurinol 100 MG Tab PO SCH (08:15)
[2016-09-20] MEDS: Magnesium Oxide 400 MG Tab PO SCH ×2 (08:15→21:08)
[2016-09-20] MEDS: Multivitamins, Therapeutic with Minerals Tab PO SCH (08:15)
[2016-09-20] MEDS: Aspirin 81 MG Tab.EC PO SCH (08:15)
[2016-09-20] MEDS: amLODIPine 5 MG Tab PO SCH (08:15)
[2016-09-20] MEDS: Cholecalciferol (Vitamin D3) 1,000 Unit Tab PO SCH (08:15)
[2016-09-20] MEDS: Vancomycin 125 MG/5 ML ML Oral Solution PO SCH ×4 (10:15→21:17)
[2016-09-20] MEDS: Metoprolol Tartrate 25 MG Tab PO SCH ×2 (10:16→21:07)
--- NOTE | 2016-09-20 12:23 | PN ---
DATE SEEN: 09/20/2016 SUBJECTIVE: Sophie Keller is an 86-year-old female from [facility]. She has been in the hospital for complicated Clostridium difficile. Two stools yesterday. Feeling otherwise well. Urine culture came back Klebsiella pneumonia sensitive to all antibiotics including the one we had chosen. Present medications include vancomycin under pharmacy supervision, and metronidazole 500 mg t.i.d. Doing otherwise well. Visit with Gastroenterology upcoming and planned. OBJECTIVE: VITAL SIGNS: Temperature 36.9, 94 is the pulse, 139/81 is the blood pressure, O2 saturation 99, and respirations 18. GENERAL: Appears comfortable. CHEST: Clear. HEART: Regular. ABDOMEN: Benign. No palpable masses. ASSESSMENT: 1. Recurrent Clostridium difficile. 2. Urinary tract infection, Klebsiella. PLAN: Medications, care, and treatment appropriate, one more day, medications to be discharged accordingly. /[id number] LYDIA/JAIR
[2016-09-20] MEDS: Warfarin 5 MG Tab PO SCH (16:12)
[2016-09-20] MEDS ORDERED: Rosuvastatin 10 MG Tab PO SCH (21:00)
[2016-09-20] MEDS: Sertraline 50 MG Tab PO SCH (21:09)
[2016-09-20] MEDS: Insulin Glargine,Human Rec. Analog 100 Units/ML 3 ML Pen *PTOM SUBCUT SCH (21:11)
[2016-09-21] MEDS: Sodium Chloride 0.9% 1,000 ML IV SCH (02:52)
[2016-09-21] MEDS: Levothyroxine 88 MCG Tab PO SCH (05:51)
[2016-09-21] MEDS: Magnesium Oxide 400 MG Tab PO SCH (08:56)
[2016-09-21] MEDS: Cholecalciferol (Vitamin D3) 1,000 Unit Tab PO SCH (08:56)
[2016-09-21] MEDS: Vancomycin 125 MG/5 ML ML Oral Solution PO SCH ×2 (08:56→13:16)
[2016-09-21] MEDS: metroNIDAZOLE 500 MG Tab PO SCH ×2 (08:56→13:17)
[2016-09-21] MEDS: Allopurinol 100 MG Tab PO SCH (08:56)
[2016-09-21] MEDS: Aspirin 81 MG Tab.EC PO SCH (08:57)
[2016-09-21] MEDS: Metoprolol Tartrate 25 MG Tab PO SCH (08:57)
[2016-09-21] MEDS: Fluticasone Propionate Nasal Spray 16 GM Bottle *PTOM NASBOTH SCH (09:00)
[2016-09-21] MEDS: Insulin Lispro 100 Unit/ML 3 ML KwikPen SUBCUT SCH ×2 (09:00→12:26)
[2016-09-21] MEDS: amLODIPine 5 MG Tab PO SCH (09:01)
[2016-09-21] MEDS: Multivitamins, Therapeutic with Minerals Tab PO SCH (09:05)
[2016-09-21] MEDS: ADVAIR INH SCH (09:05)
[2016-09-21 16:26] VITALS: BP 145/73
--- NOTE | 2016-09-22 00:58 | DISCH ---
DISCHARGE DATE: 09/21/2016 SUBJECTIVE: Sophie Keller is an 86-year-old female from [facility]. She had several episodes of acute care hospital stay for Clostridium difficile. On vancomycin therapy. She had a formed stool yesterday and appears comfortable. Feeling better. Weight has been stable. INR today 2.18, comfortable levels. OBJECTIVE: VITAL SIGNS: 154/85, mean blood pressure 108, pulse 110, 36.8 degrees Fahrenheit, 98% room air, respirations 16. NECK: Benign, thyroid small. CHEST: Clear in all lung stewart. HEART: Regular, no ectopy or murmur. ABDOMEN: Benign. Surgical scars well healed. No hepatosplenomegaly. ASSESSMENT: Clostridium difficile recurrent. PLAN: Discharge [facility], visit with Gastroenterology upcoming and planned, Neil Beltre. /[id number] LYDIA/JAIR
[2016-09-22] MEDS ORDERED: Warfarin 5 MG Tab PO SCH (16:00)
== END 2016-09-21 15:00 | DRG 372 ==
LOC: FB.ED 20:34 → FB.MS 09-18 00:38 → UNDOADMOB 09-18 00:38 → OBSVTOIN 09-20 10:10 → FB.MS 09-20 10:10
PROVIDERS: ADMIT Emergency Medicine; ATTEND Family Medicine
DX: R19.7 Diarrhea, unspecified (principal); A04.7 Enterocolitis due to Clostridium difficile; N39.0 Urinary tract infection, site not specified; I48.91 Unspecified atrial fibrillation; B96.1 Klebsiella pneumoniae [K. pneumoniae] as the cause of diseases classified elsewhere; R06.02 Shortness of breath; Z79.01 Long term (current) use of anticoagulants; Z79.4 Long term (current) use of insulin; E11.9 Type 2 diabetes mellitus without complications; J45.909 Unspecified asthma, uncomplicated; F41.8 Other specified anxiety disorders; M19.90 Unspecified osteoarthritis, unspecified site; I10 Essential (primary) hypertension
CPT/HCPCS: 36415 ×4; 74020; 74176; 80053 ×2; 81001; 82150; 82962 ×10; 83690; 84443; 84484; 85025 ×2; 85610 ×4; 86140; 87086; 87088; 87324; 93005; 96361 ×4; 96374; 99285; A9270 ×57; G0378 ×3; J2270; J7040 ×8; J7050; 84132; 87186; 99219; 99225

== ENCOUNTER 2018-09-22 11:32 | Emergency (ER) | payer MEDICARE, OTHER ==
[2018-09-22] MEDS ORDERED: Albuterol/Ipratropium 3.0-0.5 MG/3 ML Neb Soln NEB ONE (12:02)
--- NOTE | 2018-09-22 12:39 | EDM.PDOC ---
ED HPI GENERAL MEDICAL PROBLEM - General Chief Complaint: Respiratory Problem Stated Complaint: SOB Time Seen by Provider: 09/22/18 11:50 Source of Information: Reports: Patient, Family (Daughter) History Limitations: Reports: No Limitations - History of Present Illness INITIAL COMMENTS - FREE TEXT/NARRATIVE: 88-year-old female who reports that she has had a cough the past month. She states initially she had nasal congestion and a cough with clear discharge and clear sputum but the nasal discharge has basically resolved and the cough has been productive of yellow-green phlegm. She states that she has a coughing episode, she gets short of breath and then she coughs up something and she feels improved. Today the patient was seen by her water registrar and he felt that she had increased shortness of breath. The daughter also feels that her shortness of breath is somewhat worse today. She has had no increase in the swelling in her legs. She has had no chest pain. She does have back pain and headache which are rated by her as a 5/10 and are chronic. It is sore and sharp. There is no radiation. It is worse with movement. She has had no abdominal pain. She's had no nausea or vomiting. No fevers or chills. She has been eating and drinking normally. Her O2 saturations at the clinic were 100% and they are 100% now on room air. There are no other associated signs or symptoms. There are no other modifying factors. Onset: Other (As above, seems to be worse today) Duration: Getting Worse Location: Reports: Head (Which is chronic), Back (Which is chronic) Quality: Reports: Ache, Other (Sore) Severity: Moderate Improves with: Reports: None Worsens with: Reports: None Context: Reports: Other (Chronic) Associated Symptoms: Reports: Cough, Shortness of Breath, Other (She is primarily here because of her cough and feelings of shortness of breath. It is not associated with her back pain or headache.) Treatments DIANETICIST: Reports: Other (see below) (Nothing) genrealized Pain Score (Numeric/FACES): 7 - Related Data Allergies Allergy/AdvReac Type Severity Reaction Status Date / Time atorvastatin Allergy Hives Verified 09/22/18 12:01 pregabalin [From Lyrica] Allergy Cannot Verified 09/22/18 12:01 Remember iv dye Allergy Rash Uncoded 09/22/18 12:52 Home Meds: Home Meds Allopurinol [Zyloprim] 100 mg PO DAILY 11/25/15 [History] Insulin Glarg,Human.Rec.Analog [Lantus Solostar] 36 unit SQ DAILY@1600 11/25/15 [History] Rosuvastatin [Crestor] 20 mg PO BEDTIME 11/25/15 [History] amLODIPine [Norvasc] 5 mg PO DAILY 05/19/16 [History] Fluticasone Propionate [Flonase] 2 spray NASBOTH DAILY PRN 09/18/16 [History] Fluticasone/Salmeterol [Advair Diskus 500-50] 1 puff IH BID 09/18/16 [History] Sertraline [Zoloft] 50 mg PO BEDTIME 09/18/16 [History] Acetaminophen [Tylenol] 650 mg PO Q4H PRN #0 tablet 09/21/16 [Rx] Quinapril HCl [Accupril] 10 mg PO BEDTIME tablet 09/21/16 [Rx] ALPRAZolam [Alprazolam] 0.25 mg PO BEDTIME PRN 09/22/18 [History] Albuterol Sulfate [Albuterol Sulfate Hfa] 2 puff IH Q4H PRN 09/22/18 [History] Cholecalciferol (Vitamin D3) [Vitamin D3] 2,000 unit PO DAILY 09/22/18 [History] Doxycycline Hyclate 100 mg PO BID 7 Days #14 tablet 09/22/18 [Rx] Furosemide [Lasix] 20 mg PO Q48H 09/22/18 [History] Insulin Aspart [NovoLOG] 3 units SUBCUT ASDIRECTED PRN 09/22/18 [History] Insulin Aspart [NovoLOG] 8 unit SUBCUT TIDMEALS 09/22/18 [History] Lactobacillus Rhamnosus GG [StartersFundTungle.meWellness] 1 cap PO DAILY 09/22/18 [History] Levothyroxine 75 mcg PO DAILY 09/22/18 [History] Loperamide [Imodium] 2 mg PO ASDIRECTED PRN 09/22/18 [History] Metoprolol Succinate [Toprol XL 50mg] 50 mg PO DAILY 09/22/18 [History] Multivit-Min/FA/Lycopene/Lut [Certavite Sr-Antioxidant Tab] 1 tab PO DAILY 09/22 [History] Warfarin [Coumadin] 2.5 mg PO MOWEFRSA 09/22/18 [History] Warfarin [Coumadin] 5 mg PO SUTUTH 09/22/18 [History] Wheat Dextrin [Benefiber] 2 tsp PO DAILY 09/22/18 [History] predniSONE 40 mg PO WITHBREAKFAST 5 Days #10 tab 09/22/18 [Rx] traMADol [Ultram] 50 mg PO Q8H PRN 09/22/18 [History] Past Medical History HEENT History: Reports: Allergic Rhinitis, Cataract, Hard of Hearing, Impaired Vision, Other (See Below) Other HEENT History: no peripheral vision on right since 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 Colonoscopy 07-11-2016 Genitourinary History: Reports: Chronic Renal Insuffiency Musculoskeletal History: Reports: Arthritis, Back Pain, Chronic, Fibromyalgia, Gout Neurological History: Reports: CVA, Headaches, Chronic Psychiatric History: Reports: Anxiety, Depression Endocrine/Metabolic History: Reports: Diabetes, Type II Hematologic History: Reports: Anticoagulation Therapy (Chronically anticoagulated on Coumadin) - Infectious Disease History Infectious Disease History: Reports: Chicken Pox, Influenza, Measles, Mumps, Shingles - Past Surgical History HEENT Surgical History: Reports: Cataract Surgery Cardiovascular Surgical History: Reports: Other (See Below) Other Cardiovascular Surgeries/Procedures: open heart surgery for tumor GI Surgical History: Reports: Cholecystectomy Female Surgical History: Reports: Hysterectomy, Other (See Below) (Bladder suspension surgery) Neurological Surgical History: Reports: Other (See Below) (Back surgery 3) Musculoskeletal Surgical History: Reports: Carpal Tunnel (4) Social & Family History - Family History HEENT: Reports: Impaired Vision Cardiac: Reports: Heart Failure, High Cholesterol, Hypertension, [place] Respiratory: Reports: Asthma GI: Reports: Colon Polyps : Reports: Other (See Below) Other Family History: brother had blood disease that led to kidney disease OBGYN: Reports: Fibroids, Musculoskeletal: Reports: Gout Neurological: Reports: CVA, Migraines Psychiatric: Reports: Depression Endocrine/Metabolic: Reports: Diabetes, type II Hematologic: Reports: None Immunologic: Reports: Solid Organ Transplant Dermatologic: Reports: Eczema Oncologic: Reports: Skin - Tobacco Use Smoking Status *Q: Never Smoker - Caffeine Use Caffeine Use: Reports: Coffee Caffeine Use Comment: Occassional - Alcohol Use Alcohol Use History: Yes Alcohol Use Frequency: Rarely - Living Situation & Occupation Living situation: Reports: Occupation: Retired Social History Comment: Here with her daughter. ED ROS GENERAL - Review of Systems Review Of Systems: See Below Constitutional: Reports: No Symptoms HEENT: Reports: No Symptoms Respiratory: Reports: Shortness of Breath, Cough, Sputum Cardiovascular: Reports: No Symptoms GI/Abdominal: Reports: No Symptoms : Reports: No Symptoms Musculoskeletal: Reports: Back Pain (Chronic), Other (Chronic leg swelling) Skin: Reports: No Symptoms Neurological: Reports: Headache (Chronic) Hematologic/Lymphatic: Reports: Easy Bleeding (On chronic anticoagulation with Coumadin) Immunologic: Reports: No Symptoms ED EXAM, GENERAL - Physical Exam Exam: See Below Exam Limited By: No Limitations General Appearance: Alert, WD/WN, Anxious Eye Exam: Bilateral Eye: EOMI, Normal Inspection, PERRL Ears: Normal External Exam, Hearing Grossly Normal Nose: Normal Inspection, Normal Mucosa, No Blood Throat/Mouth: Normal Inspection, Normal Oropharynx, Normal Voice, No Airway Compromise Head: Atraumatic, Normocephalic Neck: Normal Inspection, Supple, Non-Tender, Full Range of Motion, Other ( Habitus precludes accurate assessment of AVD) Respiratory/Chest: No Accessory Muscle Use, Chest Non-Tender, Crackles (N basis) , Other (Slightly increased respiratory rate. Good air movement) Cardiovascular: Normal Peripheral Pulses, Regular Rate, Rhythm Peripheral Pulses: 2+: Radial (L), Radial (R), Dorsalis Pedis (L), Dorsalis Pedis (R) GI/Abdominal: Normal Bowel Sounds, Soft, Non-Tender, No Mass Back Exam: Normal Inspection Extremities: Normal Inspection, Normal Range of Motion, Non-Tender, No Pedal Edema, Normal Capillary Refill Neurological: Alert, Oriented, CN II-XII Intact Skin Exam: Warm, Dry, Intact, Normal Color, No Rash EKG INTERPRETATION EKG Date: 09/22/18 Time: 12:18 Rhythm: NSR Rate (Beats/Min): 70 Goodman: Normal P-Wave: Present QRS: Normal ST-T: Other (Nonspecific ST-T changes throughout) QT: Prolonged (Prolonged QTC) Comparison: Change From Previous EKG (Compared to an EKG on 2016, the lateral ST-T changes have improved) EKG Interpretation Comments: Normal sinus rhythm with a rate of 70. There are nonspecific ST-T changes which seem to be improved from -2016. There is a normal axis. There is a slightly prolonged QTC. Course - Orders/Labs/Meds Orders: Active Orders 24 hr Category Date Time Status EKG Documentation Completion [RC] ASDIRECTED Care 09/22/18 12:02 Active RT Aerosol Therapy [RC] ASDIRECTED Care 09/22/18 12:02 Active Chest 2V [CR] Stat Exams 09/22/18 12:00 Taken Sodium Chloride 0.9% [Saline Flush] Med 09/22/18 14:05 Active 10 ml FLUSH ASDIRECTED PRN Peripheral IV Insertion Adult [OM.PC] Routine Oth 09/22/18 14:05 Ordered EKG 12 Lead [EK] Routine Ther 09/22/18 12:00 Ordered Medication Orders Sodium Chloride (Saline Flush) 10 ml FLUSH ASDIRECTED PRN PRN Reason: Keep Vein Open Labs: Laboratory Tests 09/22/18 09/22/18 09/22/18 Range/Units 12:12 12:12 12:12 WBC 9.4 (4.5-12.0) X10-3/uL RBC 3.61 (3.23-5.20) x10(6)uL Hgb 11.5 (11.5-15.5) g/dL Hct 33.7 (30.0-51.3) % MCV 93.2 (80-96) fL MCH 31.8 (27.7-33.6) pg MCHC 34.1 (32.2-35.4) g/dL RDW 14.3 (11.5-15.5) % Plt Count 269 (125-369) X10(3)uL MPV 8.3 (7.4-10.4) fL Neut % (Auto) 76.5 (46-82) % Lymph % (Auto) 15.0 (13-37) % [place] % (Auto) 6.2 (4-12) % Eos % (Auto) 2 (1.0-5.0) % Baso % (Auto) 0 (0-2) % Neut # (Auto) 7.2 (1.6-8.3) # Lymph # (Auto) 1.4 (0.6-5.0) # [place] # (Auto) 0.6 (0.0-1.3) # Eos # (Auto) 0.2 (0.0-0.8) # Baso # (Auto) 0.0 (0.0-0.2) # PT (8.7-11.1) INR (0.89-1.13) Sodium 142 (135-145) mmol/L Potassium 3.9 (3.5-5.3) mmol/L Chloride 105 (100-110) mmol/L Carbon Dioxide 24 (21-32) mmol/L BUN 42 H (7-18) mg/dL Creatinine 1.6 H (0.55-1.02) mg/dL Est Cr Clr Drug Dosing TNP Estimated GFR (MDRD) 31 L (>60) BUN/Creatinine Ratio 26.3 H (9-20) Glucose 84 (80-116) mg/dL Calcium 9.7 (8.6-10.2) mg/dL Magnesium 1.9 (1.8-2.5) mg/dL Total Bilirubin 0.5 (0.1-1.3) mg/dL AST 29 H (5-25) IU/L ALT 26 (12-36) U/L Alkaline Phosphatase 114 H (56-112) IU/L Troponin I < 0.017 L (<0.017-0.056) ng/mL NT-Pro-B Natriuret Pep 1024 H* (<=450) pg/mL Total Protein 7.0 (6.0-8.0) g/dL Albumin 3.3 (3.2-4.6) g/dL Globulin 3.7 g/dL Albumin/Globulin Ratio 0.9 09/22/18 Range/Units 12:12 WBC (4.5-12.0) X10-3/uL RBC (3.23-5.20) x10(6)uL Hgb (11.5-15.5) g/dL Hct (30.0-51.3) % MCV (80-96) fL MCH (27.7-33.6) pg MCHC (32.2-35.4) g/dL RDW (11.5-15.5) % Plt Count (125-369) X10(3)uL MPV (7.4-10.4) fL Neut % (Auto) (46-82) % Lymph % (Auto) (13-37) % [place] % (Auto) (4-12) % Eos % (Auto) (1.0-5.0) % Baso % (Auto) (0-2) % Neut # (Auto) (1.6-8.3) # Lymph # (Auto) (0.6-5.0) # [place] # (Auto) (0.0-1.3) # Eos # (Auto) (0.0-0.8) # Baso # (Auto) (0.0-0.2) # PT 26.1 H (8.7-11.1) INR 2.72 H (0.89-1.13) Sodium (135-145) mmol/L Potassium (3.5-5.3) mmol/L Chloride (100-110) mmol/L Carbon Dioxide (21-32) mmol/L BUN (7-18) mg/dL Creatinine (0.55-1.02) mg/dL Est Cr Clr Drug Dosing Estimated GFR (MDRD) (>60) BUN/Creatinine Ratio (9-20) Glucose (80-116) mg/dL Calcium (8.6-10.2) mg/dL Magnesium (1.8-2.5) mg/dL Total Bilirubin (0.1-1.3) mg/dL AST (5-25) IU/L ALT (12-36) U/L Alkaline Phosphatase (56-112) IU/L Troponin I (<0.017-0.056) ng/mL NT-Pro-B Natriuret Pep (<=450) pg/mL Total Protein (6.0-8.0) g/dL Albumin (3.2-4.6) g/dL Globulin g/dL Albumin/Globulin Ratio Meds: Medications Generic Name Dose Route Start Last Admin Trade Name Freq PRN Reason Stop Dose Admin Sodium Chloride 10 ml 09/22/18 14:05 Saline Flush FLUSH ASDIRECTED PRN Keep Vein Open Discontinued Medications Generic Name Dose Route Start Last Admin Trade Name Carlos Alberto PRN Reason Stop Dose Admin Albuterol/Ipratropium 3 ml 09/22/18 12:02 09/22/18 12:25 Duoneb 3.0-0.5 Mg/3 Ml NEB 09/22/18 12:03 3 ml ONETIME ONE Administration Furosemide 40 mg 09/22/18 13:59 09/22/18 14:39 Lasix IVPUSH 09/22/18 14:00 40 mg NOW ONE Administration - Radiology Interpretation Free Text/Narrative:: Chest x-ray PA and lateral is unchanged from previous chest x-ray and shows no definite infiltrate or pulmonary edema. - Re-Assessments/Exams Free Text/Narrative Re-Assessment/Exam: 09/22/18 14:15: The patient's blood tests are reassuring. She does have an elevation in her proBNP which suggests congestive heart failure, although, her chest x-ray does not show pulmonary edema. She appears to have a bronchitis and mild CHF decompensation. I discussed the patient's case with Dr. Moreira, water registrar through [facility], and he had already arranged for the patient to get an increased dose of Lasix over the next 4 days. He asked that I give the patient 40 mg of Lasix IV here and he would give the orders to the assisted living for increased dosing of Lasix for the patient to take at the assisted living over the next 4 days. I will also add doxycycline 100 mg twice daily for the next 7 days and prednisone 40 mg daily for the next 5 days. She is set up to follow-up with Dr. Moreira in one week. The patient and her daughter are in agreement with this plan. Departure - Departure Time of Disposition: 15:00 Disposition: Home, Self-Care 01 Condition: Good Clinical Impression: Bronchitis CHF (congestive heart failure) Qualifiers: Heart failure type: unspecified Heart failure chronicity: acute on chronic Qualified Code(s): I50.9 - Heart failure, unspecified Dyspnea Qualifiers: Dyspnea type: unspecified Qualified Code(s): R06.00 - Dyspnea, unspecified - Discharge Information Prescriptions: Doxycycline Hyclate 100 mg PO BID 7 Days #14 tablet predniSONE 40 mg PO WITHBREAKFAST 5 Days #10 tab Instructions: Acute Bronchitis, Adult, [id number], Heart Failure Exacerbation , Shortness of Breath, Adult Referrals: Leonila Ellis NP [Primary Care Provider] - Forms: ED Department Discharge Additional Instructions: You appear to have mild exacerbation of heart failure. This represents increase fluid in your body and your water registrar as arranged for your fluid medication to be increased over the next 4 days. You also appear to have a bronchitis. Medication as prescribed (doxycycline 100 mg, prednisone). You should take probiotics and drink Kefir yogurt daily while you are on the antibiotics. You should also have your INR checked Thursday. Call the Coumadin clinic nurse and tell her that her INR was 2.7 and that you started on antibiotics today and they should arrange for recheck of your INR. Follow-up with your primary doctor. Back to the emergency department for worsening shortness of breath, high fever, unrelenting vomiting or any other concerning sign or symptom. - My Orders Last 24 Hours: My Active Orders 09/22/18 12:00 Chest 2V [CR] Stat EKG 12 Lead [EK] Routine 09/22/18 12:02 EKG Documentation Completion [RC] ASDIRECTED RT Aerosol Therapy [RC] ASDIRECTED 09/22/18 14:05 Sodium Chloride 0.9% [Saline Flush] 10 ml FLUSH ASDIRECTED PRN Peripheral IV Insertion Adult [OM.PC] Routine - Assessment/Plan Last 24 Hours: My Active Orders 09/22/18 12:00 Chest 2V [CR] Stat EKG 12 Lead [EK] Routine 09/22/18 12:02 EKG Documentation Completion [RC] ASDIRECTED RT Aerosol Therapy [RC] ASDIRECTED 09/22/18 14:05 Sodium Chloride 0.9% [Saline Flush] 10 ml FLUSH ASDIRECTED PRN Peripheral IV Insertion Adult [OM.PC] Routine
[2018-09-22] MEDS ORDERED: Furosemide 40 MG/4 ML VIAL IVPUSH ONE (13:59)
[2018-09-22] MEDS: Sodium Chloride 0.9% 10 ML Syringe FLUSH PRN ×2 (14:30→14:45)
[2018-09-22] MEDS ORDERED: predniSONE 20 MG Tab PO ONE (15:01)
[2018-09-22] MEDS ORDERED: Doxycycline 100 MG Tab PO ONE (15:01)
--- NOTE | 2018-09-22 15:14 | CR ---
INDICATION: Short of breath, cough. CHEST: PA and lateral views of the chest, 09/22/18, were compared with and revealed post median sternotomy changes seen previously with the heart normal in size and shape. The aorta is tortuous with calcification in the arch and descending portion. Bony structures appear to be intact. Pulmonary markings are unchanged from the previous study with no definite active infiltrate or effusion identified. Slightly increased flattening of diaphragm leaves with prominent AP diameter raise question of COPD - correlate clinically. Overlying EKG leads are noted. IMPRESSION: Fairly stable appearance of the chest, except for suggestion of progressive COPD - correlate clinically. No definite acute process. MTDD
[2018-09-22 18:42] VITALS: BP 153/60
== END 2018-09-22 15:03 | disposition home or self-care (01) ==
LOC: FB.ED 11:32
DX: I13.0 Hypertensive heart and chronic kidney disease with heart failure and stage 1 through stage 4 chronic kidney disease, or unspecified chronic kidney disease (principal); I50.9 Heart failure, unspecified; N18.9 Chronic kidney disease, unspecified; J40 Bronchitis, not specified as acute or chronic; I48.91 Unspecified atrial fibrillation; E78.00 Pure hypercholesterolemia, unspecified; F41.9 Anxiety disorder, unspecified; F32.9 Major depressive disorder, single episode, unspecified; Z88.8 Allergy status to other drugs, medicaments and biological substances; Z79.899 Other long term (current) drug therapy; Z79.4 Long term (current) use of insulin; Z79.01 Long term (current) use of anticoagulants
CPT/HCPCS: 36415; 71046; 80053; 83735; 83880; 84484; 85025; 85610; 93005; 94640; 96374; 99285; J1940; J7620-GY

== ENCOUNTER 2020-06-15 15:50 | Emergency (ER) | payer MEDICARE, OTHER ==
[2020-06-15 16:33] VITALS: BP 153/76; PULSE 106
--- NOTE | 2020-06-15 16:45 | EDM.PDOC ---
ED HPI GENERAL MEDICAL PROBLEM - General Stated Complaint: WEAKNESS Time Seen by Provider: 06/15/20 16:10 Source of Information: Reports: Patient History Limitations: Reports: No Limitations - History of Present Illness INITIAL COMMENTS - FREE TEXT/NARRATIVE: c/o weakness pt had her 2nd COVID vax yesterday, this morning she ate 2 crackers and had an emesis, none since, no N now, has had little appetite saw PCP Dr Robles today who sent in Rx for Zofran, Dr Robles sent her here for further evaluation, pt had c/o chills there altho none here vss stable here denies pain except in her LUE where she had the COVID vax dtr drove pt to ED and then went back to her vehicle pt reports she had a syncopal episode when standing up from the commode to wipe herself 5d, was admitted to hosp here with dx of UTI, u/a 3d ago was clear, UC 5d ago showed mixed carla 3d ago u/a with 0-5 wbc and many bacteria, 5d ago u/a with >100 wbc and few bacteria tx with cipro and fosfomycin not on antbx now, has h/o C diff 2017 no BM today, says she usual has several small BMs, then has "a large blowout" every 2-3d no N now, drinking OJ and eating fruit lives in [facility] living - Related Data Allergies Allergy/AdvReac Type Severity Reaction Status Date / Time atorvastatin Allergy Hives Verified 06/15/20 16:33 Penicillins Allergy Other Verified 06/15/20 16:33 pregabalin [From Lyrica] Allergy Cannot Verified 06/15/20 16:33 Remember Sulfa (Sulfonamide Allergy Rash Verified 06/15/20 16:33 Antibiotics) iv dye Allergy Rash Uncoded 09/22/18 12:52 Home Meds: Home Meds Allopurinol [Zyloprim] 100 mg PO DAILY 11/25/15 [History] Rosuvastatin [Crestor] 20 mg PO BEDTIME 11/25/15 [History] Fluticasone/Salmeterol [Advair Diskus 500-50] 1 puff IH BID 09/18/16 [History] Acetaminophen [Tylenol] 650 mg PO Q4H PRN #0 tablet 09/21/16 [Rx] Quinapril HCl [Accupril] 10 mg PO BEDTIME tablet 09/21/16 [Rx] Albuterol Sulfate [Albuterol Sulfate Hfa] 2 puff IH Q4H PRN 09/22/18 [History] Cholecalciferol (Vitamin D3) [Vitamin D3] 2,000 unit PO DAILY 09/22/18 [History] Furosemide [Lasix] 20 mg PO DAILY 09/22/18 [History] Lactobacillus Rhamnosus GG [OzmotaHMS [employer]] 1 cap PO DAILY 09/22/18 [History] Levothyroxine 75 mcg PO MOTUWETHFRSA 09/22/18 [History] Multivit-Min/FA/Lycopen/Lutein [Certavite Senior Tablet] 1 tab PO DAILY 09/22/18 [History] Warfarin [Coumadin] 2.5 mg PO DAILY 09/22/18 [History] Citalopram Hydrobromide [Celexa] 20 mg PO DAILY 06/10/20 [History] Ferrous Sulfate 325 mg PO DAILY 06/10/20 [History] LORazepam [Ativan] 0.5 mg PO QID PRN 06/10/20 [History] Carboxymethylcellulose Sodium [Refresh Tears] 1 drop EYEBOTH BID 06/11/20 [History] Insulin Glarg,Human.Rec.Analog [Lantus Solostar] 28 unit SQ DAILY@1600 #0 06/13/20 [Rx] Loperamide [Imodium] 4 mg PO BID #0 06/13/20 [Rx] Metoprolol Succinate [Toprol XL] 50 mg PO DAILY #0 06/13/20 [Rx] Phytonadione [Vitamin K] 100 mcg PO DAILY #30 tablet 06/13/20 [Rx] Doxycycline [Vibra-Tabs] 100 mg PO BID #10 tablet 06/15/20 [Rx] Past Medical History HEENT History: Reports: Allergic Rhinitis, Cataract, Hard of Hearing, Impaired Vision, Other (See Below) Other HEENT History: no peripheral vision on right since 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 Colonoscopy 07-11-2016 Genitourinary History: Reports: Chronic Renal Insuffiency [employer] History: Reports: Musculoskeletal History: Reports: Arthritis, Back Pain, Chronic, Fibromyalgia, Gout Neurological History: Reports: CVA, Headaches, Chronic Psychiatric History: Reports: Anxiety, Depression Endocrine/Metabolic History: Reports: Diabetes, Type II Hematologic History: Reports: Anticoagulation Therapy Immunologic History: Reports: None Oncologic (Cancer) History: Reports: None Dermatologic History: Reports: None - Infectious Disease History Infectious Disease History: Reports: Chicken Pox, Influenza, Measles, Mumps, Shingles - Past Surgical History Head Surgeries/Procedures: Reports: None HEENT Surgical History: Reports: Cataract Surgery Cardiovascular Surgical History: Reports: Other (See Below) Other Cardiovascular Surgeries/Procedures: open heart surgery for tumor Respiratory Surgical History: Reports: None GI Surgical History: Reports: Cholecystectomy Female Surgical History: Reports: Hysterectomy, Other (See Below) Endocrine Surgical History: Reports: None Neurological Surgical History: Reports: Other (See Below) Other Neurological Surgeries/Procedures: 3 back surgeries, states she needs a fourth. Musculoskeletal Surgical History: Reports: Carpal Tunnel Other Musculoskeletal Surgeries/Procedures:: back surgerys times 3 Oncologic Surgical History: Reports: None Dermatological Surgical History: Reports: None Social & Family History - Family History Family Medical History: No Pertinent Family History HEENT: Reports: Impaired Vision Cardiac: Reports: Heart Failure, High Cholesterol, Hypertension, [place] Respiratory: Reports: Asthma GI: Reports: Colon Polyps : Reports: Other (See Below) Other Family History: brother had blood disease that led to kidney disease OBGYN: Reports: Fibroids, Musculoskeletal: Reports: Gout Neurological: Reports: CVA, Migraines Psychiatric: Reports: Depression Endocrine/Metabolic: Reports: Diabetes, type II Hematologic: Reports: None Immunologic: Reports: Solid Organ Transplant Dermatologic: Reports: Eczema Oncologic: Reports: Skin - Tobacco Use Tobacco Use Status *Q: Never Tobacco User - Caffeine Use Caffeine Use: Reports: Soda Other Caffeine Use: diet soda Caffeine Use Comment: Occassional - Recreational Drug Use Recreational Drug Use: No - Living Situation & Occupation Living situation: Reports: Occupation: Retired ED ROS GENERAL - Review of Systems Review Of Systems: See Below Constitutional: Reports: No Symptoms, Weakness. Denies: Fever HEENT: Reports: No Symptoms Respiratory: Reports: No Symptoms Cardiovascular: Reports: No Symptoms Endocrine: Reports: No Symptoms GI/Abdominal: Reports: No Symptoms : Reports: No Symptoms Musculoskeletal: Reports: No Symptoms Skin: Reports: Rash Neurological: Reports: No Symptoms Psychiatric: Reports: No Symptoms Hematologic/Lymphatic: Reports: No Symptoms Immunologic: Reports: No Symptoms ED EXAM, SKIN/RASH Exam: See Below Exam Limited By: No Limitations General Appearance: Alert, WD/WN, No Apparent Distress, Other (alert, pleasant, chatty, nonill, moves easily) Nose: Normal Inspection, Normal Mucosa, No Blood Throat/Mouth: Normal Inspection, Normal Lips, Normal Teeth, Normal Oropharynx Head: Atraumatic, Normocephalic Neck: Normal Inspection, Supple, Non-Tender, Full Range of Motion. No: Lymphadenopathy (R), Lymphadenopathy (L) Respiratory/Chest: No Respiratory Distress, Lungs Clear, Normal Breath Sounds, No Accessory Muscle Use Cardiovascular: Regular Rate, Rhythm, No Edema GI/Abdominal: Soft, Non-Tender, No Distention Back Exam: Normal Inspection, Full Range of Motion, NT Extremities: Normal Range of Motion, No Pedal Edema, Other (no pitting edema LEs, no wearing her usual support stockings) Neurological: Alert, Oriented, CN II-XII Intact, Normal Cognition, No Motor/Sensory Deficits Psychiatric: Normal Affect, Normal Mood Skin: Other (LUE at deltoid with sub induration of 5 x 5 x 2 cm, skin is red and warm overlying in area of 8 x 8 cm c/w cellulitis (noncontiguous with underlying induration)) Lymphatic: No Adenopathy Course - Vital Signs Last Recorded V/S: Last Vital Signs Temp 36.2 C 06/15/20 16:05 Pulse 106 H 06/15/20 16:05 Resp 18 06/15/20 16:05 BP 153/76 H 06/15/20 16:05 Pulse Ox 100 06/15/20 16:05 - Orders/Labs/Meds Labs: Laboratory Tests 06/15/20 06/15/20 06/15/20 Range/Units 16:01 16:40 16:40 WBC 8.9 (3.0-10.3) x10-3/uL RBC 3.42 L (3.60-5.20) x10(6)uL Hgb 10.7 L (11.4-15.5) g/dL Hct 33.2 L (34.2-48.2) % MCV 97.0 (76.7-100.5) fL MCH 31.4 (23.9-33.9) pg MCHC 32.3 (31.9-34.8) g/dL RDW 14.2 (12.3-16.5) % Plt Count 236 (151-488) x10(3)uL MPV 8.4 (7.1-12.4) fL Neut % (Auto) 79.9 H (30.8-76.2) % Lymph % (Auto) 10.9 L (18.4-52.1) % Rin[place] % (Auto) 8.2 (4.4-15.7) % Eos % (Auto) 0.7 (0.6-8.1) % Baso % (Auto) 0.3 (0.2-1.5) % Neut # (Auto) 7.1 H (1.5-6.3) x10-3/uL Lymph # (Auto) 1.0 (1.0-4.4) x10-3/uL [place] # (Auto) 0.7 (0.3-1.0) x10-3/uL Eos # (Auto) 0.1 (0.0-0.8) x10-3/uL Baso # (Auto) 0.0 (0.0-0.1) x10-3/uL PT 18.3 H (9.0-11.1) sec INR 1.75 H (1.00-1.24) Sodium (135-145) mmol/L Potassium (3.5-5.3) mmol/L Chloride (100-110) mmol/L Carbon Dioxide (21-32) mmol/L BUN (7-18) mg/dL Creatinine (0.55-1.02) mg/dL Est Cr Clr Drug Dosing mL/min Estimated GFR (MDRD) (>60) BUN/Creatinine Ratio (9-20) Glucose (80-116) mg/dL POC Glucose 141 H (74-100) mg/dL Calcium (8.6-10.2) mg/dL Total Bilirubin (0.1-1.3) mg/dL AST (5-25) IU/L ALT (12-36) U/L Alkaline Phosphatase (56-112) IU/L C-Reactive Protein (0.5-0.9) mg/dL Total Protein (6.0-8.0) g/dL Albumin (3.2-4.6) g/dL Globulin g/dL Albumin/Globulin Ratio 06/15/20 06/15/20 Range/Units 16:40 16:40 WBC (3.0-10.3) x10-3/uL RBC (3.60-5.20) x10(6)uL Hgb (11.4-15.5) g/dL Hct (34.2-48.2) % MCV (76.7-100.5) fL MCH (23.9-33.9) pg MCHC (31.9-34.8) g/dL RDW (12.3-16.5) % Plt Count (151-488) x10(3)uL MPV (7.1-12.4) fL Neut % (Auto) (30.8-76.2) % Lymph % (Auto) (18.4-52.1) % Rincon % (Auto) (4.4-15.7) % Eos % (Auto) (0.6-8.1) % Baso % (Auto) (0.2-1.5) % Neut # (Auto) (1.5-6.3) x10-3/uL Lymph # (Auto) (1.0-4.4) x10-3/uL Rincon # (Auto) (0.3-1.0) x10-3/uL Eos # (Auto) (0.0-0.8) x10-3/uL Baso # (Auto) (0.0-0.1) x10-3/uL PT (9.0-11.1) sec INR (1.00-1.24) Sodium 138 (135-145) mmol/L Potassium 4.2 (3.5-5.3) mmol/L Chloride 102 D (100-110) mmol/L Carbon Dioxide 24 (21-32) mmol/L BUN 31 H (7-18) mg/dL Creatinine 1.9 H (0.55-1.02) mg/dL Est Cr Clr Drug Dosing 14.98 mL/min Estimated GFR (MDRD) 25 L (>60) BUN/Creatinine Ratio 16.3 (9-20) Glucose 152 H (80-116) mg/dL POC Glucose (74-100) mg/dL Calcium 9.2 (8.6-10.2) mg/dL Total Bilirubin 0.7 (0.1-1.3) mg/dL AST 30 H D (5-25) IU/L ALT 28 D (12-36) U/L Alkaline Phosphatase 114 H (56-112) IU/L C-Reactive Protein 0.7 (0.5-0.9) mg/dL Total Protein 6.8 (6.0-8.0) g/dL Albumin 3.3 (3.2-4.6) g/dL Globulin 3.5 g/dL Albumin/Globulin Ratio 0.9 - Re-Assessments/Exams Free Text/Narrative Re-Assessment/Exam: 06/15/20 17:12 labs at baseline ate small cup of fruit in ED, drank glass OJ in ED will tx doxy x 5d for likely cellulitis LUE, exam more c/w localized cellulitis at injection site for COVID than with localized inflammatory reaction will show LUE to dtr who is coming to pick pt up edges marked with pen 06/15/20 18:02 dtr already picked up Rx (Zofran and doxy), tx plan reviewed with dtr who acknowledged understanding, cellulitis shown to dtr as well as need to check it daily pt ate additional crackers and peanut butter in ED, no n/v here seems to be doing well glucose 152, may continue with regular meds, pt will eat additional when she gets home Departure - Departure Time of Disposition: 17:14 Disposition: Home, Self-Care 01 Condition: Good Clinical Impression: Cellulitis of left upper extremity - Discharge Information *PRESCRIPTION DRUG MONITORING PROGRAM REVIEWED*: Not Applicable *COPY OF PRESCRIPTION DRUG MONITORING REPORT IN PATIENT ZOYA: Not Applicable Prescriptions: Doxycycline [Vibra-Tabs] 100 mg PO BID #10 tablet Referrals: Gaurav Robles MD [Primary Care Provider] - Additional Instructions: For infection, take doxycycline 100 mg 1 tab 2 times a day for 5 days. For pain and inflammation, take acetaminophen 325 mg 2 tabs 4 times a day for 2 days, longer if needed. Monitor the skin daily. If the pain gets worse or the redness spreads beyond the inked margins, return to the ED. Otherwise, see Dr Robles and your other physicians as per current schedule. Sepsis Event Note (ED) - Evaluation Sepsis Screening Result: No Definite Risk - Focused Exam Vital Signs: Vital Signs Temp Pulse Resp BP Pulse Ox 06/15/20 16:05 36.2 C 106 H 18 153/76 H 100
== END 2020-06-15 18:00 | disposition home or self-care (01) ==
LOC: FB.ED 15:50
DX: L03.114 Cellulitis of left upper limb (principal); I48.91 Unspecified atrial fibrillation; E78.00 Pure hypercholesterolemia, unspecified; J45.909 Unspecified asthma, uncomplicated; I12.9 Hypertensive chronic kidney disease with stage 1 through stage 4 chronic kidney disease, or unspecified chronic kidney disease; N18.9 Chronic kidney disease, unspecified; E11.22 Type 2 diabetes mellitus with diabetic chronic kidney disease; Z88.8 Allergy status to other drugs, medicaments and biological substances; Z88.0 Allergy status to penicillin; Z88.2 Allergy status to sulfonamides; Z91.041 Radiographic dye allergy status; Z79.899 Other long term (current) drug therapy; Z86.73 Personal history of transient ischemic attack (TIA), and cerebral infarction without residual deficits; Z79.4 Long term (current) use of insulin
CPT/HCPCS: 36415; 80053; 82962; 85025; 85610; 86140; 99283

== ENCOUNTER 2020-06-25 16:08 | Observation (INO) | payer MEDICARE, OTHER ==
[2020-06-25] MEDS ORDERED: Sodium Chloride 0.9% 10 ML Syringe FLUSH PRN (17:10)
[2020-06-25] MEDS ORDERED: Ondansetron 4 MG/2 ML SDV IVPUSH PRN (17:18)
[2020-06-25] MEDS: Sodium Chloride 0.9% 1,000 ML IV SCH (17:42)
[2020-06-25] MEDS ORDERED: Acetaminophen 650 MG Supp RECTAL PRN (17:53)
[2020-06-25] MEDS ORDERED: cefTRIAXone 1 GM Vial IVPUSH SCH (18:00)
--- NOTE | 2020-06-25 19:02 | PCM.HP.2 ---
H&P History of Present Illness - General Date of Service: 06/25/20 Admit Problem/Dx: Admission Diagnosis/Problem Admission Diagnosis/Problem Dehydration, Gastroenteritis, Acute on Chronic Kidney, UTI Source of Information: Patient, Family, Provider - History of Present Illness Initial Comments - Free Text/Narative: Sophie is a direct admission from [facility] for dehydration, Acute renal insufficiency, nausea, vomiting. She was recently admitted for UTI few weeks ago. Had cellulitis from Covid 2nd vaccination, was on Doxycycline for [address] Robles on the and was given Zofran to use at [facility], has not been able to keep anything but toast/peanut butter since Thursday. Bilious vomiting, denies bloody or coffee ground emesis. Dark stools, on iron for iron deficiency, Hgb was 11.3 on last check was 10.9 today. Came to clinic today due to worse than Thursday, feeling lightheaded, headache, loss of appetite, abdominal pain, located epigastric & suprapubic area, nonradiating, denies diarrhea. Denies any frequency, dysuria, hematuria. Rash on upper back, cellulitis from vaccination has healed. Denies any itching. She lives in apartment at [facility], does have some forgetfulness per her daughter. UA at clinic was cloudy, 30-50 WBC but many epithelial cells, few bacteria, negative nitrites & LE. - Related Data Allergies/Adverse Reactions: Allergies Allergy/AdvReac Type Severity Reaction Status Date / Time atorvastatin Allergy Hives Verified 06/15/20 16:33 Penicillins Allergy Other Verified 06/15/20 16:33 pregabalin [From Lyrica] Allergy Cannot Verified 06/15/20 16:33 Remember Sulfa (Sulfonamide Allergy Rash Verified 06/15/20 16:33 Antibiotics) iv dye Allergy Rash Uncoded 09/22/18 12:52 Home Medications: Home Meds Allopurinol [Zyloprim] 100 mg PO DAILY 11/25/15 [History] Rosuvastatin [Crestor] 20 mg PO BEDTIME 11/25/15 [History] Fluticasone/Salmeterol [Advair Diskus 500-50] 1 puff IH BID 09/18/16 [History] Acetaminophen [Tylenol] 650 mg PO Q4H PRN #0 tablet 09/21/16 [Rx] Quinapril HCl [Accupril] 10 mg PO BEDTIME tablet 09/21/16 [Rx] Albuterol Sulfate [Albuterol Sulfate Hfa] 2 puff IH Q4H PRN 09/22/18 [History] Cholecalciferol (Vitamin D3) [Vitamin D3] 2,000 unit PO DAILY 09/22/18 [History] Furosemide [Lasix] 20 mg PO DAILY 09/22/18 [History] Lactobacillus Rhamnosus GG [[employer]] 1 cap PO DAILY 09/22/18 [History] Levothyroxine 75 mcg PO MOTUWETHFRSA 09/22/18 [History] Multivit-Min/FA/Lycopen/Lutein [Certavite Senior Tablet] 1 tab PO DAILY 09/22/18 [History] Warfarin [Coumadin] 2.5 mg PO DAILY 09/22/18 [History] Citalopram Hydrobromide [Celexa] 20 mg PO DAILY 06/10/20 [History] Ferrous Sulfate 325 mg PO DAILY 06/10/20 [History] LORazepam [Ativan] 0.5 mg PO Q6H PRN 06/10/20 [History] Carboxymethylcellulose Sodium [Refresh Tears] 1 drop EYEBOTH BID 06/11/20 [History] Insulin Glarg,Human.Rec.Analog [Lantus Solostar] 28 unit SQ DAILY@1600 #0 06/13/20 [Rx] Phytonadione [Vitamin K] 100 mcg PO DAILY #30 tablet 06/13/20 [Rx] Loperamide HCl [Loperamide] 2 mg PO DAILY PRN 06/25/20 [History] Loperamide [Imodium] 4 mg PO BID 06/25/20 [History] Metoprolol Succinate [Toprol XL] 125 mg PO DAILY 06/25/20 [History] Wheat Dextrin [Benefiber] 2 tsp PO DAILY 06/25/20 [History] ondansetron HCL [Zofran] 4 mg PO Q8H PRN 06/25/20 [History] Past Medical History HEENT History: Reports: Allergic Rhinitis, Cataract, Hard of Hearing, Impaired Vision, Other (See Below) Other HEENT History: no peripheral vision on right since 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 Colonoscopy 07-11-2016 Genitourinary History: Reports: Chronic Renal Insuffiency CLIENT EVALUATOR History: Reports: Musculoskeletal History: Reports: Arthritis, Back Pain, Chronic, Fibromyalgia, Gout Neurological History: Reports: CVA, Headaches, Chronic Psychiatric History: Reports: Anxiety, Depression Endocrine/Metabolic History: Reports: Diabetes, Type II Hematologic History: Reports: Anticoagulation Therapy Immunologic History: Reports: None Oncologic (Cancer) History: Reports: None Dermatologic History: Reports: None - Infectious Disease History Infectious Disease History: Reports: Chicken Pox, Influenza, Measles, Mumps, Shingles - Past Surgical History Head Surgeries/Procedures: Reports: None HEENT Surgical History: Reports: Cataract Surgery Cardiovascular Surgical History: Reports: Other (See Below) Other Cardiovascular Surgeries/Procedures: open heart surgery for tumor Respiratory Surgical History: Reports: None GI Surgical History: Reports: Cholecystectomy Female Surgical History: Reports: Hysterectomy, Other (See Below) Endocrine Surgical History: Reports: None Neurological Surgical History: Reports: Other (See Below) Other Neurological Surgeries/Procedures: 3 back surgeries, states she needs a fourth. Musculoskeletal Surgical History: Reports: Carpal Tunnel Other Musculoskeletal Surgeries/Procedures:: back surgerys times 3 Oncologic Surgical History: Reports: None Dermatological Surgical History: Reports: None Social & Family History - Family History Family Medical History: No Pertinent Family History HEENT: Reports: Impaired Vision Cardiac: Reports: Heart Failure, High Cholesterol, Hypertension, [place] Respiratory: Reports: Asthma GI: Reports: Colon Polyps : Reports: Other (See Below) Other Family History: brother had blood disease that led to kidney disease OBGYN: Reports: Fibroids, Musculoskeletal: Reports: Gout Neurological: Reports: CVA, Migraines Psychiatric: Reports: Depression Endocrine/Metabolic: Reports: Diabetes, type II Hematologic: Reports: None Immunologic: Reports: Solid Organ Transplant Dermatologic: Reports: Eczema Oncologic: Reports: Skin - Tobacco Use Tobacco Use Status *Q: Never Tobacco User Second Hand Smoke Exposure: No - Caffeine Use Caffeine Use: Reports: Tea Other Caffeine Use: diet soda Caffeine Use Comment: Occassional - Recreational Drug Use Recreational Drug Use: No - Living Situation & Occupation Living situation: Reports: Occupation: Retired H&P Review of Systems - Review of Systems: Review Of Systems: Comprehensive ROS is negative, except as noted in HPI. Exam - Exam Exam: See Below - Vital Signs Weight: 144 lb 1.6 oz - Exam General: Alert, Oriented, Cooperative. No: Mild Distress HEENT: PERRLA, Conjunctiva Clear, EOMI, Hearing Intact, Mucosa Moist & [place], Posterior Pharynx Clear Neck: Trachea Midline. No: Lymphadenopathy Lungs: Clear to Auscultation, Normal Respiratory Effort Cardiovascular: Regular Rate, Irregular Rhythm GI/Abdominal Exam: Soft, Guarding, Tender (epigastric & suprapubic TTP), Abnormal Bowel Sounds (hypoactive BS x2). No: No Distention, Rigid, Rebound (Female) Exam: Deferred Rectal (Female) Exam: Deferred Extremities: No Pedal Edema (BLE TEDs in place) Peripheral Pulses: 2+: Radial (L), Radial (R) Skin: Rash (Macular rash on upper back, no excoriations. Skin marker present on left upper arm, no erythema noted.) Neurological: Normal Speech, Normal Tone Psychiatric: Alert, Normal Affect - Patient Data Lab Results Last 24 hrs: Laboratory Results - last 24 hr 06/25/20 Range/Units 18:32 POC Glucose 131 H (74-100) mg/dL Sodium 137, Potassium 4.1, Chloride 101, CO2 24, BUN 35, Creatinine 2.3, Glucose 151, iStat troponin 0.04 WBC 7.2, Hgb 10.9, Hct 32.9, Platelets 273 UA: 30-50 WBC, 0 RBCs, Few bacteria, many epithelials. Urine Appearance Slightly Cloudy Urine Specific [place] 1.015 Urine pH 6.0 Urine Glucose Negative Urine Ketones Negative Urine Protein 100 mg/dL Urine Nitrites Negative Urine Leukocyte Esterase Negative EKG: atrial fibrillation, rate controlled. *Q Meaningful Use (ADM) - VTE Risk Assess *Q Each Risk Factor Represents 1 Point: None Total Score 1 Point Risk Factors: 0 Each Risk Factor Represents 2 Points: None Total Score 2 Point Risk Factors: 0 Each Risk Factor Represents 3 Points: Age 75 Years or Greater Total Score 3 Point Risk Factors: 3 Each Risk Factor Represents 5 Points: None Total Score 5 Point Risk Factors: 0 Venous Thromboembolism Risk Factor Score *Q: 3 - Problem List (1) Acute gastroenteritis SNOMED Code(s): 30348657 ICD Code: K52.9 - NONINFECTIVE GASTROENTERITIS AND COLITIS, UNSPECIFIED Status: Acute Current Visit: No (2) Dehydration SNOMED Code(s): 01948618 ICD Code: E86.0 - DEHYDRATION Status: Acute Current Visit: No (3) Renal failure (ARF), acute on chronic SNOMED Code(s): 508193681 ICD Code: N17.9 - ACUTE KIDNEY FAILURE, UNSPECIFIED; N18.9 - CHRONIC KIDNEY DISEASE, UNSPECIFIED Status: Acute Current Visit: No (4) UTI, Urinary tract infectious disease SNOMED Code(s): 39425817 ICD Code: N39.0 - URINARY TRACT INFECTION, SITE NOT SPECIFIED Status: Acute Current Visit: No (5) Afib SNOMED Code(s): 21935458 ICD Code: I48.91 - UNSPECIFIED ATRIAL FIBRILLATION Status: Chronic Current Visit: No Qualifiers: Atrial fibrillation type: chronic (6) CHF (congestive heart failure) SNOMED Code(s): 82603177 ICD Code: I50.9 - HEART FAILURE, UNSPECIFIED Status: Chronic Current Visit: No Qualifiers: Heart failure type: unspecified Heart failure chronicity: acute on chronic Qualified Code(s): I50.9 - Heart failure, unspecified (7) DM2 (diabetes mellitus, type 2) SNOMED Code(s): 63414513 ICD Code: E11.9 - TYPE 2 DIABETES MELLITUS WITHOUT COMPLICATIONS Status: Chronic Current Visit: No Qualifiers: Diabetes mellitus complication status: without complication (8) HTN (hypertension) SNOMED Code(s): 10864133 ICD Code: I10 - ESSENTIAL (PRIMARY) HYPERTENSION Status: Chronic Current Visit: No Qualifiers: Hypertension type: essential hypertension Qualified Code(s): I10 - Essential (primary) hypertension (9) Long-term (current) use of anticoagulants SNOMED Code(s): 575054192 ICD Code: Z79.01 - DRAWING 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 (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) USE OF ANTICOAGULANTS Status: Chronic Priority: Medium Current Visit: No Problem List Initiated/Reviewed/Updated: Yes Orders Last 24hrs: Active Orders 24 hr Category Date Time Status Patient Status [ADT] Routine ADT 06/25/20 17:10 Active Blood Glucose Check, Bedside [RC] QIDACANDBED Care 06/25/20 17:10 Active Oxygen Therapy [RC] PRN Care 06/25/20 17:10 Active Up With Assistance [RC] ASDIRECTED Care 06/25/20 17:10 Active Up to Chair [RC] ASDIRECTED Care 06/25/20 17:10 Active VTE/DVT Education [RC] Per Unit Routine Care 06/25/20 17:10 Active Vital Signs [RC] Q4H Care 06/25/20 17:10 Active Clear Liquid Diet [DIET] Diet 06/25/20 Dinner Active BASIC METABOLIC PANEL,BMP [CHEM] Routine Lab 06/26/20 06:00 Ordered CBC WITH AUTO DIFF [HEME] Routine Lab 06/26/20 06:00 Ordered CORONAVIRUS COVID-19 RODNEY [MOLEC] Stat Lab 06/25/20 17:49 Ordered CULTURE URINE [RM] Stat Lab 06/25/20 17:10 Received Acetaminophen [Tylenol] Med 06/25/20 17:53 Active 650 mg RECTAL Q4H PRN Ondansetron [Zofran] Med 06/25/20 17:18 Active 4 mg IVPUSH Q6H PRN Sodium Chloride 0.9% [Normal Saline] 1,000 ml Med 06/25/20 17:15 Active IV ASDIRECTED Sodium Chloride 0.9% [Saline Flush] Med 06/25/20 17:10 Active 10 ml FLUSH ASDIRECTED PRN cefTRIAXone [Rocephin] Med 06/25/20 18:00 Active 1 gm IVPUSH Q24H Antiembolic Hose [OM.PC] Per Unit Routine Oth 06/25/20 17:14 Ordered Saline Lock Insert [OM.PC] Routine Oth 06/25/20 17:10 Ordered Code Status [Resuscitation Status] Routine Resus Stat 06/25/20 17:34 Ordered Medication Orders Acetaminophen (Tylenol) 650 mg RECTAL Q4H PRN PRN Reason: Pain/Fever Ceftriaxone Sodium (Rocephin) 1 gm IVPUSH Q24H [facility] Last Admin: 06/25/20 18:19 Dose: 1 gm Documented by: DIFFCAL Sodium Chloride (Normal Saline) 1,000 mls @ 100 mls/hr IV ASDIRECTED CHRISTINE Last Admin: 06/25/20 17:42 Dose: 100 mls/hr Documented by: DIFFCAL Ondansetron HCl (Zofran) 4 mg IVPUSH Q6H PRN PRN Reason: Nausea/Vomiting Sodium Chloride (Saline Flush) 10 ml FLUSH ASDIRECTED PRN PRN Reason: Keep Vein Open Last Admin: 06/25/20 18:20 Dose: 10 ml Documented by: DIFFCAL Assessment/Plan Comment:: 1. Admit for observation for gastroenteritis, dehydration, acute on chronic renal disease, UTI. 2. UTI: Rocephin 1 gram IV q24h, Urine culture sent from urine collected on admission prior to antibiotics. Repeat CBC in am. 3. Gastroenteritis: Zofran 4 mg IV q6h as needed. Tylenol 650 mg MO q4h as needed. NS at 100 ml/hr. 4. Acute on Chronic renal: repeat BMP in am. IV fluids, clears. 5. Clear liquid diet. 6. Hold home medications tonight, restart in am after reviewed by pharmacy since they are in pill packs. 7. DVT prophylaxis: on Coumadin. INR in am. Pharmacy to dose. 8. CODE STATUS: DNR/DNI. Anticipate discharge in 48 hours, back to [facility]. - Mortality Measure Prognosis:: Poor
[2020-06-25] MEDS ORDERED: Loperamide 2 MG Cap PO SCH (21:00)
[2020-06-26] MEDS: Sodium Chloride 0.9% 1,000 ML IV SCH ×3 (04:07→23:49)
--- NOTE | 2020-06-26 09:08 | PCM.PN ---
- General Info Date of Service: 06/26/20 Subjective Update: Sophie had emesis this morning around 4 am, states her stomach feels better now, going to try her clear liquid breakfast. States her stool are more soft mushy. Doesn't think she takes Benefiber anymore but has scheduled Imodium on her medication list. Her pill packs are here and will go through with pharmacy. She has been urinating well. States abdominal pain is better. Passing gas. Urine culture pending. - Patient Data Vitals - Most Recent: Last Vital Signs Temp 97.6 F 06/26/20 05:00 Pulse 88 06/26/20 05:00 Resp 18 06/26/20 05:00 BP 144/78 H 06/26/20 05:00 Pulse Ox 99 06/26/20 05:00 Weight - Most Recent: 144 lb 1.6 oz I&O - Last 24 Hours: Intake & Output 06/25/20 06/26/20 06/26/20 22:59 06:59 14:59 Intake Total 420 Balance 420 Lab Results Last 24 Hours: Laboratory Results - last 24 hr 06/25/20 06/25/20 06/25/20 Range/Units 18:30 18:32 22:45 WBC (3.0-10.3) x10-3/uL RBC (3.60-5.20) x10(6)uL Hgb (11.4-15.5) g/dL Hct (34.2-48.2) % MCV (76.7-100.5) fL MCH (23.9-33.9) pg MCHC (31.9-34.8) g/dL RDW (12.3-16.5) % Plt Count (151-488) x10(3)uL MPV (7.1-12.4) fL Neut % (Auto) (30.8-76.2) % Lymph % (Auto) (18.4-52.1) % [place] % (Auto) (4.4-15.7) % Eos % (Auto) (0.6-8.1) % Baso % (Auto) (0.2-1.5) % Neut # (Auto) (1.5-6.3) x10-3/uL Lymph # (Auto) (1.0-4.4) x10-3/uL [place] # (Auto) (0.3-1.0) x10-3/uL Eos # (Auto) (0.0-0.8) x10-3/uL Baso # (Auto) (0.0-0.1) x10-3/uL PT (9.0-11.1) sec INR (1.00-1.24) Sodium (135-145) mmol/L Potassium (3.5-5.3) mmol/L Chloride (100-110) mmol/L Carbon Dioxide (21-32) mmol/L BUN (7-18) mg/dL Creatinine (0.55-1.02) mg/dL Est Cr Clr Drug Dosing mL/min Estimated GFR (MDRD) (>60) BUN/Creatinine Ratio (9-20) Glucose (80-116) mg/dL POC Glucose 131 H 134 H (74-100) mg/dL Calcium (8.6-10.2) mg/dL SARS-CoV-2 RNA (RODNEY) Negative (NEGATIVE) 06/26/20 06/26/20 06/26/20 Range/Units 06:35 06:35 06:35 WBC 6.4 (3.0-10.3) x10-3/uL RBC 3.23 L (3.60-5.20) x10(6)uL Hgb 10.3 L (11.4-15.5) g/dL Hct 31.7 L (34.2-48.2) % MCV 98.0 (76.7-100.5) fL MCH 31.7 (23.9-33.9) pg MCHC 32.4 (31.9-34.8) g/dL RDW 14.4 (12.3-16.5) % Plt Count 237 (151-488) x10(3)uL MPV 8.8 (7.1-12.4) fL Neut % (Auto) 59.7 (30.8-76.2) % Lymph % (Auto) 25.3 (18.4-52.1) % [place] % (Auto) 9.8 (4.4-15.7) % Eos % (Auto) 3.7 (0.6-8.1) % Baso % (Auto) 1.5 (0.2-1.5) % Neut # (Auto) 3.8 (1.5-6.3) x10-3/uL Lymph # (Auto) 1.6 (1.0-4.4) x10-3/uL [place] # (Auto) 0.6 (0.3-1.0) x10-3/uL Eos # (Auto) 0.2 (0.0-0.8) x10-3/uL Baso # (Auto) 0.1 (0.0-0.1) x10-3/uL PT 38.1 H* (9.0-11.1) sec INR 3.86 H (1.00-1.24) Sodium 140 (135-145) mmol/L Potassium 3.7 (3.5-5.3) mmol/L Chloride 105 (100-110) mmol/L Carbon Dioxide 26 (21-32) mmol/L BUN 40 H (7-18) mg/dL Creatinine 2.0 H* (0.55-1.02) mg/dL Est Cr Clr Drug Dosing 14.23 mL/min Estimated GFR (MDRD) 24 L (>60) BUN/Creatinine Ratio 20.0 (9-20) Glucose 124 H (80-116) mg/dL POC Glucose (74-100) mg/dL Calcium 8.2 L (8.6-10.2) mg/dL SARS-CoV-2 RNA (RODNEY) (NEGATIVE) Med Orders - Current: Current Medications Acetaminophen (Tylenol) 650 mg RECTAL Q4H PRN PRN Reason: Pain/Fever Ceftriaxone Sodium (Rocephin) 1 gm IVPUSH Q24H [facility] Last Admin: 06/25/20 18:19 Dose: 1 gm Documented by: Sodium Chloride (Normal Saline) 1,000 mls @ 100 mls/hr IV ASDIRECTED CHRISTINE Last Admin: 06/26/20 04:07 Dose: 100 mls/hr Documented by: Ondansetron HCl (Zofran) 4 mg IVPUSH Q6H PRN PRN Reason: Nausea/Vomiting Last Admin: 06/26/20 04:09 Dose: 4 mg Documented by: Sodium Chloride (Saline Flush) 10 ml FLUSH ASDIRECTED PRN PRN Reason: Keep Vein Open Last Admin: 06/25/20 18:20 Dose: 10 ml Documented by: Discontinued Medications Loperamide HCl (Imodium) 4 mg PO BID CHRISTINE - Exam General: Alert, Oriented (person, place), Cooperative, No Acute Distress Lungs: Clear to Auscultation, Normal Respiratory Effort Cardiovascular: Regular Rate, Irregular Rhythm GI/Abdominal Exam: Soft, No Distention, Guarding, Tender (mild epigastric TTP), Abnormal Bowel Sounds (hypoactive BS x 4) Extremities: No Pedal Edema Peripheral Pulses: 2+: Radial (L), Radial (R) - Patient Data Lab Results Last 24 hrs: Laboratory Results - last 24 hr 06/25/20 06/25/20 06/25/20 Range/Units 18:30 18:32 22:45 WBC (3.0-10.3) x10-3/uL RBC (3.60-5.20) x10(6)uL Hgb (11.4-15.5) g/dL Hct (34.2-48.2) % MCV (76.7-100.5) fL MCH (23.9-33.9) pg MCHC (31.9-34.8) g/dL RDW (12.3-16.5) % Plt Count (151-488) x10(3)uL MPV (7.1-12.4) fL Neut % (Auto) (30.8-76.2) % Lymph % (Auto) (18.4-52.1) % [place] % (Auto) (4.4-15.7) % Eos % (Auto) (0.6-8.1) % Baso % (Auto) (0.2-1.5) % Neut # (Auto) (1.5-6.3) x10-3/uL Lymph # (Auto) (1.0-4.4) x10-3/uL [place] # (Auto) (0.3-1.0) x10-3/uL Eos # (Auto) (0.0-0.8) x10-3/uL Baso # (Auto) (0.0-0.1) x10-3/uL PT (9.0-11.1) sec INR (1.00-1.24) Sodium (135-145) mmol/L Potassium (3.5-5.3) mmol/L Chloride (100-110) mmol/L Carbon Dioxide (21-32) mmol/L BUN (7-18) mg/dL Creatinine (0.55-1.02) mg/dL Est Cr Clr Drug Dosing mL/min Estimated GFR (MDRD) (>60) BUN/Creatinine Ratio (9-20) Glucose (80-116) mg/dL POC Glucose 131 H 134 H (74-100) mg/dL Calcium (8.6-10.2) mg/dL SARS-CoV-2 RNA (RODNEY) Negative (NEGATIVE) 06/26/20 06/26/20 06/26/20 Range/Units 06:35 06:35 06:35 WBC 6.4 (3.0-10.3) x10-3/uL RBC 3.23 L (3.60-5.20) x10(6)uL Hgb 10.3 L (11.4-15.5) g/dL Hct 31.7 L (34.2-48.2) % MCV 98.0 (76.7-100.5) fL MCH 31.7 (23.9-33.9) pg MCHC 32.4 (31.9-34.8) g/dL RDW 14.4 (12.3-16.5) % Plt Count 237 (151-488) x10(3)uL MPV 8.8 (7.1-12.4) fL Neut % (Auto) 59.7 (30.8-76.2) % Lymph % (Auto) 25.3 (18.4-52.1) % [place] % (Auto) 9.8 (4.4-15.7) % Eos % (Auto) 3.7 (0.6-8.1) % Baso % (Auto) 1.5 (0.2-1.5) % Neut # (Auto) 3.8 (1.5-6.3) x10-3/uL Lymph # (Auto) 1.6 (1.0-4.4) x10-3/uL [place] # (Auto) 0.6 (0.3-1.0) x10-3/uL Eos # (Auto) 0.2 (0.0-0.8) x10-3/uL Baso # (Auto) 0.1 (0.0-0.1) x10-3/uL PT 38.1 H* (9.0-11.1) sec INR 3.86 H (1.00-1.24) Sodium 140 (135-145) mmol/L Potassium 3.7 (3.5-5.3) mmol/L Chloride 105 (100-110) mmol/L Carbon Dioxide 26 (21-32) mmol/L BUN 40 H (7-18) mg/dL Creatinine 2.0 H* (0.55-1.02) mg/dL Est Cr Clr Drug Dosing 14.23 mL/min Estimated GFR (MDRD) 24 L (>60) BUN/Creatinine Ratio 20.0 (9-20) Glucose 124 H (80-116) mg/dL POC Glucose (74-100) mg/dL Calcium 8.2 L (8.6-10.2) mg/dL SARS-CoV-2 RNA (RODNEY) (NEGATIVE) Result Diagrams: 06/26/20 06:35 06/26/20 06:35 Sepsis Event Note - Evaluation Sepsis Screening Result: No Definite Risk - Focused Exam Vital Signs: Vital Signs Temp Pulse Resp BP Pulse Ox 06/26/20 05:00 97.6 F 88 18 144/78 H 99 06/26/20 01:00 97.2 F 92 18 153/93 H 100 06/25/20 21:10 96.9 F 88 18 149/79 H 98 - Problem List & Annotations (1) Acute gastroenteritis SNOMED Code(s): 27279275 Code(s): K52.9 - NONINFECTIVE GASTROENTERITIS AND COLITIS, UNSPECIFIED Status: Acute Current Visit: No (2) Dehydration SNOMED Code(s): 18826799 Code(s): E86.0 - DEHYDRATION Status: Acute Current Visit: No (3) Renal failure (ARF), acute on chronic SNOMED Code(s): 217752940 Code(s): N17.9 - ACUTE KIDNEY FAILURE, UNSPECIFIED; N18.9 - CHRONIC KIDNEY DISEASE, UNSPECIFIED Status: Acute Current Visit: No (4) UTI, Urinary tract infectious disease SNOMED Code(s): 58644332 Code(s): N39.0 - URINARY TRACT INFECTION, SITE NOT SPECIFIED Status: Acute Current Visit: No (5) Afib SNOMED Code(s): 16713103 Code(s): I48.91 - UNSPECIFIED ATRIAL FIBRILLATION Status: Chronic Current Visit: No Qualifiers: Atrial fibrillation type: longstanding persistent Qualified Code(s): I48.11 - Longstanding persistent atrial fibrillation (6) CHF (congestive heart failure) SNOMED Code(s): 51457198 Code(s): I50.9 - HEART FAILURE, UNSPECIFIED Status: Chronic Current Visit: No Qualifiers: Heart failure type: unspecified Heart failure chronicity: acute on chronic Qualified Code(s): I50.9 - Heart failure, unspecified (7) DM2 (diabetes mellitus, type 2) SNOMED Code(s): 86465015 Code(s): E11.9 - TYPE 2 DIABETES MELLITUS WITHOUT COMPLICATIONS Status: Chronic Current Visit: No Qualifiers: Diabetes mellitus complication status: without complication (8) HTN (hypertension) SNOMED Code(s): 69343603 Code(s): I10 - ESSENTIAL (PRIMARY) HYPERTENSION Status: Chronic Current Visit: No Qualifiers: Hypertension type: essential hypertension Qualified Code(s): I10 - Essential (primary) hypertension (9) Long-term (current) use of anticoagulants SNOMED Code(s): 996161627 Code(s): Z79.01 - 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PC] Per Unit Routine 06/25/20 17:15 Sodium Chloride 0.9% [Normal Saline] 1,000 ml IV ASDIRECTED 06/25/20 17:18 Ondansetron [Zofran] 4 mg IVPUSH Q6H PRN 06/25/20 17:34 Code Status [Resuscitation Status] Routine 06/25/20 17:53 Acetaminophen [Tylenol] 650 mg RECTAL Q4H PRN 06/25/20 18:00 cefTRIAXone [Rocephin] 1 gm IVPUSH Q24H 06/27/20 06:00 BASIC METABOLIC PANEL,BMP [CHEM] Routine INR,PT,PROTHROMBIN TIME [COAG] Routine - Plan Plan:: 1. UTI: Rocephin 1 gram IV q24h, Urine culture sent from urine collected on admission prior to antibiotics. Repeat CBC in am. 2. Gastroenteritis: Zofran 4 mg IV q6h as needed. Tylenol 650 mg [place] q4h as needed. NS at 100 ml/hr. 3. Acute on Chronic renal: repeat BMP in am. IV fluids, creatinine improved to 2.0. 4. Clear liquid diet, had emesis this morning, will see how she does with breakfast, if unable to advance will get AXR. 5. DVT prophylaxis: on Coumadin. INR in am. Pharmacy to dose.
[2020-06-26] MEDS ORDERED: Glucagon,Human Recombinant 1 MG Vial IM PRN (09:59)
[2020-06-26] MEDS ORDERED: 50% Dextrose in Water 50 ML Syringe IVPUSH PRN (09:59)
[2020-06-26] MEDS: Levothyroxine 75 MCG Tab PO SCH (10:15)
[2020-06-26] MEDS: FLUTICASONE INH SCH ×2 (11:00→21:15)
[2020-06-26] MEDS: PHYTONADIONE 100 MCG PO SCH (11:00)
[2020-06-26] MEDS: Metoprolol Succinate 100 MG Tab.ER *PTOM PO SCH (11:00)
[2020-06-26] MEDS: Citalopram 20 MG Tab *PTOM PO SCH (11:00)
[2020-06-26] MEDS: SALMETEROL INH SCH ×2 (11:00→21:15)
[2020-06-26] MEDS: Carboxymethylcellulose Sodium 0.5% Ophth Soln 15 ML Bottle EYEBOTH SCH ×2 (11:00→21:16)
[2020-06-26] MEDS: Cholecalciferol (Vitamin D3) 25 MCG Tab PO SCH (11:00)
[2020-06-26] MEDS: Ferrous Sulfate 325 MG Tab *PTOM PO SCH (11:00)
[2020-06-26] MEDS ORDERED: Insulin Glargine,Human Rec. Analog 100 Units/ML 3 ML Pen SUBCUT SCH (16:00)
[2020-06-26] MEDS ORDERED: QUINAPRIL HCL 10 MG PO SCH (21:00)
[2020-06-26] MEDS ORDERED: Rosuvastatin 20 MG Tab *PTOM PO SCH (21:00)
[2020-06-27] MEDS: Levothyroxine 75 MCG Tab PO SCH (05:49)
[2020-06-27] MEDS: Citalopram 20 MG Tab *PTOM PO SCH (08:40)
[2020-06-27] MEDS: Metoprolol Succinate 100 MG Tab.ER *PTOM PO SCH (08:42)
[2020-06-27] MEDS: Ferrous Sulfate 325 MG Tab *PTOM PO SCH (08:42)
[2020-06-27] MEDS: Cholecalciferol (Vitamin D3) 25 MCG Tab PO SCH (08:42)
[2020-06-27 08:43] VITALS: PULSE 75
[2020-06-27] MEDS: SALMETEROL INH SCH (08:44)
[2020-06-27] MEDS: Carboxymethylcellulose Sodium 0.5% Ophth Soln 15 ML Bottle EYEBOTH SCH (08:44)
[2020-06-27] MEDS: FLUTICASONE INH SCH (08:44)
[2020-06-27] MEDS: PHYTONADIONE 100 MCG PO SCH (08:45)
[2020-06-27 09:16] VITALS: BP 125/64
--- NOTE | 2020-06-27 10:13 | PCM.DCSUM1 ---
Discharge Summary - Hospital Course HPI Initial Comments: Sophie is a direct admission from [facility] for dehydration, Acute renal insufficiency, nausea, vomiting. She was recently admitted for UTI few weeks ago. Had cellulitis from Covid 2nd vaccination, was on Doxycycline for [address] Robles on the and was given Zofran to use at [facility], has not been able to keep anything but toast/peanut butter since Thursday. Bilious vomiting, denies bloody or coffee ground emesis. Dark stools, on iron for iron deficiency, Hgb was 11.3 on last check was 10.9 today. Came to clinic today due to worse than Thursday, feeling lightheaded, headache, loss of appetite, abdominal pain, located epigastric & suprapubic area, nonradiating, denies diarrhea. Denies any frequency, dysuria, hematuria. Rash on upper back, cellulitis from vaccination has healed. Denies any itching. She lives in [facility], does have some forgetfulness per her daughter. UA at clinic was cloudy, 30-50 WBC but many epithelial cells, few bacteria, negative nitrites & LE. Diagnosis: Stroke: No - Discharge Data Discharge Date: 06/27/20 ([facility]) Discharge Disposition: Home, W Home Health Agency 06 Condition: Stable - Referral to Home Health Date of Face to Face Encounter: 06/27/20 Reason for Homebound Status: [facility] Resident. Primary Care Physician: Gaurav Robles MD Skilled Need: Nursing for medication managment, INR checks, education. - Discharge Diagnosis/Problem(s) (1) Acute gastroenteritis SNOMED Code(s): 69341712 ICD Code: K52.9 - NONINFECTIVE GASTROENTERITIS AND COLITIS, UNSPECIFIED Status: Acute Current Visit: No (2) Dehydration SNOMED Code(s): 66273853 ICD Code: E86.0 - DEHYDRATION Status: Acute Current Visit: No (3) Renal failure (ARF), acute on chronic SNOMED Code(s): 140080963 ICD Code: N17.9 - ACUTE KIDNEY FAILURE, UNSPECIFIED; N18.9 - CHRONIC KIDNEY DISEASE, UNSPECIFIED Status: Resolved Current Visit: No (4) UTI, Urinary tract infectious disease SNOMED Code(s): 68175962 ICD Code: N39.0 - URINARY TRACT INFECTION, SITE NOT SPECIFIED Status: Ruled-out Current Visit: No (5) Afib SNOMED Code(s): 89395791 ICD Code: I48.91 - UNSPECIFIED ATRIAL FIBRILLATION Status: Chronic Current Visit: No Qualifiers: Atrial fibrillation type: longstanding persistent Qualified Code(s): I48.11 - Longstanding persistent atrial fibrillation (6) CHF (congestive heart failure) SNOMED Code(s): 24277806 ICD Code: I50.9 - HEART FAILURE, UNSPECIFIED Status: Chronic Current Visit: No Qualifiers: Heart failure type: unspecified Heart failure chronicity: acute on chronic Qualified Code(s): I50.9 - Heart failure, unspecified (7) DM2 (diabetes mellitus, type 2) SNOMED Code(s): 28278217 ICD Code: E11.9 - TYPE 2 DIABETES MELLITUS WITHOUT COMPLICATIONS Status: Chronic Current Visit: No Qualifiers: Diabetes mellitus complication status: without complication (8) HTN (hypertension) SNOMED Code(s): 70620554 ICD Code: I10 - ESSENTIAL (PRIMARY) HYPERTENSION Status: Chronic Current Visit: No Qualifiers: Hypertension type: essential hypertension Qualified Code(s): I10 - Essential (primary) hypertension (9) Long-term (current) use of anticoagulants SNOMED Code(s): 472250954 ICD Code: Z79.01 - 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 Received NS at 100 ml/hr since admission, her urination has improved and Creatinine came down to 2.0 then 1.6 today. Her INR was supratherapeutic so has not received any Coumadin during hospital stay. She has continued to receive her Vitamin K dose and her INR has continued to climb 3.86, then 4.46 today. She tolerated clear liquids and diet was advanced to soft yesterday, has tolerated well. No vomiting or diarrhea. With her picky eating and poor water intake at home, her INR are very fluctuant discussed with daughter the risks are outweighing the benefits of the medication, recommended discontinuing Coumadin and once her INR is below 2.0 to start aspirin. Also discussed this with Romario Donaldson PA-C, he and daughter were in agreement to discontinue. Will continue Vitamin K until she is seen on Thursday by Romario Donaldson. Also will discontinue Insulin since she is eating such small amounts and sometimes only once a day. Referral to Dr Cantu will be done by Romario Donaldson for suspected esophageal stricture. If her eating improves substantially then Romario Donaldson may readdress insulin use. Also will discontinue Rosuvastatin as her life expectancy is <10 yrs, risks outweigh benefits. Romario Donaldson may address some of her other medications such as Allopurinol if she still needs them. She has appointment with Dr Rome today at 1pm, her daughter will pick her up and go to appointment, otherwise the next opening is in December with him when he is in [place]. - Patient Instructions Diet: Regular Diet as Tolerated Activity: As Tolerated Driving: Do Not Drive Showering/Bathing: May Shower Notify Provider of: Fever, Increased Pain, Nausea and/or Vomiting Other/Special Instructions: Follow up with Romario Donaldson PA-C at [facility] on Thursday. Daily INR until below 2.0, Home health to notify Romario Donaldson of results, he will start aspirin once you are below 2.0. Discontinue your insulin, Rosuvastatin & coumadin. Eat foods you can tolerate. Drink more water & cranberry juice. Referral to Dr Cantu has been made by Romario Donaldson in regards to food getting stuck when you eat. - Discharge Plan *PRESCRIPTION DRUG MONITORING PROGRAM REVIEWED*: Not Applicable *COPY OF PRESCRIPTION DRUG MONITORING REPORT IN PATIENT ZOYA: Not Applicable Prescriptions/Med Rec: Loperamide [Imodium] 4 mg PO BID PRN 30 Days #120 cap PRN Reason: Diarrhea Metoprolol Succinate [Toprol XL 100mg] 50 mg PO DAILY 30 Days #15 tab.er Home Medications: Home Meds Allopurinol [Zyloprim] 100 mg PO DAILY 11/25/15 [History] Fluticasone/Salmeterol [Advair Diskus 500-50] 1 puff IH BID 09/18/16 [History] Acetaminophen [Tylenol] 650 mg PO Q4H PRN #0 tablet 09/21/16 [Rx] Quinapril HCl [Accupril] 10 mg PO BEDTIME tablet 09/21/16 [Rx] Albuterol Sulfate [Albuterol Sulfate Hfa] 2 puff IH Q4H PRN 09/22/18 [History] Cholecalciferol (Vitamin D3) [Vitamin D3] 2,000 unit PO DAILY 09/22/18 [History] Furosemide [Lasix] 20 mg PO DAILY 09/22/18 [History] Lactobacillus Rhamnosus GG [[employer]] 1 cap PO DAILY 09/22/18 [History] Levothyroxine 75 mcg PO MOTUWETHFRSA 09/22/18 [History] Multivit-Min/FA/Lycopen/Lutein [Certavite Senior Tablet] 1 tab PO DAILY 09/22/18 [History] Citalopram Hydrobromide [Celexa] 20 mg PO DAILY 06/10/20 [History] Ferrous Sulfate 325 mg PO DAILY 06/10/20 [History] Carboxymethylcellulose Sodium [Refresh Tears] 1 drop EYEBOTH BID 06/11/20 [History] Phytonadione [Vitamin K] 100 mcg PO DAILY #30 tablet 06/13/20 [Rx] ondansetron HCL [Zofran] 4 mg PO Q8H PRN 06/25/20 [History] Loperamide [Imodium] 4 mg PO BID PRN 30 Days #120 cap 06/27/20 [Rx] Metoprolol Succinate [Toprol XL 100mg] 50 mg PO DAILY 30 Days #15 tab.er 06/27/20 [Rx] Oxygen Therapy Mode: Room Air Patient Handouts: Dehydration, Elderly, [id number] Referrals: Romario Donaldson PA [[employer]] - - Discharge Summary/Plan Comment DC Time >30 min.: No - General Info Date of Service: 06/27/20 Subjective Update: Sophie had low blood sugar of 55 at 3 am this morning, her insulin was given yesterday afternoon. She is having toast, peanut butter and banana today. She has not had any further vomiting. No diarrhea. No abdominal pain. States she cannot stand anything with chicken in it. She will eat beef based soups, ice cream, toast/peanut butter. She states she feels like food gets stuck right before her stomach, she will drink a Sprite and then she is able to get it down. She was going [facility] [employer] and ordering her food at [facility] but since pandemic closed the dining room she gets whatever the kitchen sends and usually throws it if she knows she doesn't like it or won't tolerate it. She also did this with food her daughter made her that she knows she likes kept the meatballs and threw out the mashed potatoes even without trying them. Functional Status: Reports: Tolerating Diet, Ambulating, Urinating. Denies: New Symptoms - Patient Data Vitals - Most Recent: Last Vital Signs Temp 97.9 F 06/27/20 08:00 Pulse 75 06/27/20 08:42 Resp 16 06/27/20 08:00 BP 125/69 06/27/20 08:42 Pulse Ox 100 06/27/20 08:00 Weight - Most Recent: 144 lb 1.6 oz I&O - Last 24 hours: Intake & Output 06/26/20 06/27/20 06/27/20 22:59 06:59 14:59 Intake Total 6 1122 Output Total 200 300 200 Balance 1826 822 -200 Lab Results - Last 24 hrs: Laboratory Results - last 24 hr 06/26/20 06/26/20 06/26/20 Range/Units 14:17 16:49 20:55 PT (9.0-11.1) sec INR (1.00-1.24) Sodium (135-145) mmol/L Potassium (3.5-5.3) mmol/L Chloride (100-110) mmol/L Carbon Dioxide (21-32) mmol/L BUN (7-18) mg/dL Creatinine (0.55-1.02) mg/dL Est Cr Clr Drug Dosing mL/min Estimated GFR (MDRD) (>60) BUN/Creatinine Ratio (9-20) Glucose (80-116) mg/dL POC Glucose 229 H 184 H 163 H (74-100) mg/dL Calcium (8.6-10.2) mg/dL 06/27/20 06/27/20 Range/Units 06:20 06:20 PT 43.4 H* (9.0-11.1) sec INR 4.43 H* (1.00-1.24) Sodium 141 (135-145) mmol/L Potassium 3.4 L (3.5-5.3) mmol/L Chloride 107 (100-110) mmol/L Carbon Dioxide 24 (21-32) mmol/L BUN 26 H D (7-18) mg/dL Creatinine 1.6 H (0.55-1.02) mg/dL Est Cr Clr Drug Dosing 17.79 mL/min Estimated GFR (MDRD) 30 L (>60) BUN/Creatinine Ratio 16.3 (9-20) Glucose 134 H (80-116) mg/dL POC Glucose (74-100) mg/dL Calcium 8.3 L (8.6-10.2) mg/dL ELIF Results - Last 24 hrs: Microbiology 06/25/20 17:10 Urine Culture - Preliminary Urine, Voided NO GROWTH AFTER 1 DAY Med Orders - Current: Current Medications Acetaminophen (Tylenol) 650 mg RECTAL Q4H PRN PRN Reason: Pain/Fever Allopurinol (Zyloprim) 100 mg PO DAILY [facility] Last Admin: 06/27/20 08:40 Dose: 100 mg Documented by: Artificial Tears (Refresh Tears 0.5%) 0 ml EYEBOTH BID [facility] Last Admin: 06/27/20 08:44 Dose: 1 drop Documented by: Cholecalciferol (Vitamin D3) 50 mcg PO DAILY [facility] Last Admin: 06/27/20 08:42 Dose: 50 mcg Documented by: Citalopram Hydrobromide (Celexa) 20 mg PO DAILY [facility] Last Admin: 06/27/20 08:40 Dose: 20 mg Documented by: Dextrose/Water (Dextrose 50% In Water) 50 ml IVPUSH ASDIRECTED PRN PRN Reason: Hypoglycemia Ferrous Sulfate (Ferrous Sulfate) 325 mg PO DAILY [facility] Last Admin: 06/27/20 08:42 Dose: 325 mg Documented by: Glucagon (Glucagen) 1 mg IM ASDIRECTED PRN PRN Reason: Hypoglycemia Sodium Chloride (Normal Saline) 1,000 mls @ 100 mls/hr IV ASDIRECTED [facility] Last Admin: 06/26/20 23:49 Dose: 100 mls/hr Documented by: Levothyroxine Sodium (Levothyroxine) 75 mcg PO MoTuWeThFrSa@0600 [facility] Last Admin: 06/27/20 05:49 Dose: 75 mcg Documented by: Metoprolol Succinate (Toprol Xl) 50 mg PO DAILY [facility] Last Admin: 06/27/20 08:42 Dose: 50 mg Documented by: (Fluticasone/Salmeterol [Advair Diskus 500-50] 1 Puff) *Ptom 1 puff INH BID [facility] Last Admin: 06/27/20 08:44 Dose: 1 puff Documented by: (Quinapril Hcl [ Accupril] 10 Mg) * Ptom 10 mg PO BEDTIME [facility] Last Admin: 06/26/20 21:16 Dose: 10 mg Documented by: Ondansetron HCl (Zofran) 4 mg IVPUSH Q6H PRN PRN Reason: Nausea/Vomiting Last Admin: 06/26/20 04:09 Dose: 4 mg Documented by: Phytonadione (Vitamin K) 100 mcg PO DAILY [facility] Last Admin: 06/27/20 08:45 Dose: 100 mcg Documented by: Rosuvastatin Calcium (Crestor) 20 mg PO BEDTIME [facility] Last Admin: 06/26/20 21:16 Dose: 20 mg Documented by: Sodium Chloride (Saline Flush) 10 ml FLUSH ASDIRECTED PRN PRN Reason: Keep Vein Open Last Admin: 06/25/20 18:20 Dose: 10 ml Documented by: Discontinued Medications Ceftriaxone Sodium (Rocephin) 1 gm IVPUSH Q24H [facility] Last Admin: 06/25/20 18:19 Dose: 1 gm Documented by: Insulin Glargine (Lantus Solostar) 28 units SUBCUT DAILY@1600 [facility] Last Admin: 06/26/20 15:35 Dose: 28 unit Documented by: Loperamide HCl (Imodium) 4 mg PO BID [facility] - Exam General: Reports: Alert, Oriented, Cooperative, No Acute Distress Lungs: Reports: Clear to Auscultation, Normal Respiratory Effort, Decreased Breath Sounds (bibasilar), Crackles (rare fine crackles on LLL). Denies: Wheezing Cardiovascular: Reports: Regular Rate, No Murmurs, Irregular Rhythm GI/Abdominal Exam: Normal Bowel Sounds, Soft, Non-Tender, No Distention (Female) Exam: Deferred Rectal (Female) Exam: Deferred Extremities: No Pedal Edema Skin: Reports: Warm, Dry, Intact
== END 2020-06-27 13:22 | disposition home health service (06) ==
LOC: FB.MS 16:23
PROVIDERS: ADMIT Family Medicine; ATTEND Family Medicine
DX: N17.9 Acute kidney failure, unspecified (principal); E86.0 Dehydration; N39.0 Urinary tract infection, site not specified; I48.91 Unspecified atrial fibrillation; I10 Essential (primary) hypertension; E78.00 Pure hypercholesterolemia, unspecified; I12.9 Hypertensive chronic kidney disease with stage 1 through stage 4 chronic kidney disease, or unspecified chronic kidney disease; N18.9 Chronic kidney disease, unspecified; E11.22 Type 2 diabetes mellitus with diabetic chronic kidney disease; I25.2 Old myocardial infarction; I13.0 Hypertensive heart and chronic kidney disease with heart failure and stage 1 through stage 4 chronic kidney disease, or unspecified chronic kidney disease; I50.9 Heart failure, unspecified; Z20.822 Contact with and (suspected) exposure to COVID-19; Z88.8 Allergy status to other drugs, medicaments and biological substances; Z88.0 Allergy status to penicillin; Z88.2 Allergy status to sulfonamides; Z91.041 Radiographic dye allergy status; Z79.899 Other long term (current) drug therapy; Z86.73 Personal history of transient ischemic attack (TIA), and cerebral infarction without residual deficits; Z79.01 Long term (current) use of anticoagulants
CPT/HCPCS: 36415; 80048; 82962; 85025; 85610; 87086; 87088; 96374; 96375; A9270; G0378; G0379; J0696; J1815; J2405; J7030; U0002

== ENCOUNTER 2020-07-11 20:41 | Emergency (ER) | payer MEDICARE, OTHER ==
[2020-07-11] MEDS ORDERED: Insulin Lispro 100 Unit/ML 3 ML KwikPen SUBCUT ONE (20:42)
[2020-07-11] MEDS ORDERED: 50% Dextrose in Water 50 ML Syringe IVPUSH PRN (20:57)
[2020-07-11] MEDS ORDERED: Insulin Lispro 100 Unit/ML 3 ML KwikPen SUBCUT STA (20:57)
[2020-07-11] MEDS ORDERED: Glucagon,Human Recombinant 1 MG Vial IM PRN (20:57)
--- NOTE | 2020-07-11 21:23 | EDM.PDOC ---
ED HPI GENERAL MEDICAL PROBLEM - General Stated Complaint: Hyperglecia Time Seen by Provider: 07/11/20 21:10 Source of Information: Reports: Patient, Family History Limitations: Reports: No Limitations - History of Present Illness INITIAL COMMENTS - FREE TEXT/NARRATIVE: Patient presented to the ED because of of an elevated BS of more than 450. There is no fever,chills, cough and cold. There is no N/V/D. She is on Lantus 4 U SC QHS. Headache Pain Score (Numeric/FACES): 5 - Related Data Allergies Allergy/AdvReac Type Severity Reaction Status Date / Time atorvastatin Allergy Hives Verified 06/15/20 16:33 Penicillins Allergy Other Verified 06/15/20 16:33 pregabalin [From Lyrica] Allergy Cannot Verified 06/15/20 16:33 Remember Sulfa (Sulfonamide Allergy Rash Verified 06/15/20 16:33 Antibiotics) iv dye Allergy Rash Uncoded 09/22/18 12:52 Home Meds: Home Meds Allopurinol [Zyloprim] 100 mg PO DAILY 11/25/15 [History] Fluticasone/Salmeterol [Advair Diskus 500-50] 1 puff IH BID 09/18/16 [History] Acetaminophen [Tylenol] 650 mg PO Q4H PRN #0 tablet 09/21/16 [Rx] Quinapril HCl [Accupril] 10 mg PO BEDTIME tablet 09/21/16 [Rx] Albuterol Sulfate [Albuterol Sulfate Hfa] 2 puff IH Q4H PRN 09/22/18 [History] Cholecalciferol (Vitamin D3) [Vitamin D3] 2,000 unit PO DAILY 09/22/18 [History] Furosemide [Lasix] 20 mg PO DAILY 09/22/18 [History] Lactobacillus Rhamnosus GG [[employer]] 1 cap PO DAILY 09/22/18 [History] Levothyroxine 75 mcg PO MOTUWETHFRSA 09/22/18 [History] Multivit-Min/FA/Lycopen/Lutein [Certavite Senior Tablet] 1 tab PO DAILY 09/22/18 [History] Citalopram Hydrobromide [Celexa] 20 mg PO DAILY 06/10/20 [History] Ferrous Sulfate 325 mg PO DAILY 06/10/20 [History] Carboxymethylcellulose Sodium [Refresh Tears] 1 drop EYEBOTH BID 06/11/20 [History] ondansetron HCL [Zofran] 4 mg PO Q8H PRN 06/25/20 [History] Loperamide [Imodium] 4 mg PO BID PRN 30 Days #120 cap 06/27/20 [Rx] Metoprolol Succinate [Toprol XL 100mg] 50 mg PO DAILY 30 Days #15 tab.er 06/27/20 [Rx] Past Medical History HEENT History: Reports: Allergic Rhinitis, Cataract, Hard of Hearing, Impaired Vision, Other (See Below) Other HEENT History: no peripheral vision on right since 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: Musculoskeletal History: Reports: Arthritis, Back Pain, Chronic, Fibromyalgia, Gout Neurological History: Reports: CVA, Headaches, Chronic Psychiatric History: Reports: Anxiety, Depression Endocrine/Metabolic History: Reports: Diabetes, Type II Hematologic History: Reports: Anticoagulation Therapy Immunologic History: Reports: None Oncologic (Cancer) History: Reports: None Dermatologic History: Reports: None - Infectious Disease History Infectious Disease History: Reports: Chicken Pox, Influenza, Measles, Mumps, Shingles - Past Surgical History Head Surgeries/Procedures: Reports: None HEENT Surgical History: Reports: Cataract Surgery Cardiovascular Surgical History: Reports: Other (See Below) Other Cardiovascular Surgeries/Procedures: open heart surgery for tumor Respiratory Surgical History: Reports: None GI Surgical History: Reports: Cholecystectomy Female Surgical History: Reports: Hysterectomy, Other (See Below) Endocrine Surgical History: Reports: None Neurological Surgical History: Reports: Other (See Below) Other Neurological Surgeries/Procedures: 3 back surgeries, states she needs a fourth. Musculoskeletal Surgical History: Reports: Carpal Tunnel Other Musculoskeletal Surgeries/Procedures:: back surgerys times 3 Oncologic Surgical History: Reports: None Dermatological Surgical History: Reports: None Social & Family History - Family History Family Medical History: No Pertinent Family History HEENT: Reports: Impaired Vision Cardiac: Reports: Heart Failure, High Cholesterol, Hypertension, [place] Respiratory: Reports: Asthma GI: Reports: Colon Polyps : Reports: Other (See Below) Other Family History: brother had blood disease that led to kidney disease OBGYN: Reports: Fibroids, Musculoskeletal: Reports: Gout Neurological: Reports: CVA, Migraines Psychiatric: Reports: Depression Endocrine/Metabolic: Reports: Diabetes, type II Hematologic: Reports: None Immunologic: Reports: Solid Organ Transplant Dermatologic: Reports: Eczema Oncologic: Reports: Skin - Caffeine Use Caffeine Use: Reports: Tea Other Caffeine Use: diet soda Caffeine Use Comment: Occassional - Living Situation & Occupation Living situation: Reports: Occupation: Retired ED ROS GENERAL - Review of Systems Review Of Systems: See Below Constitutional: Reports: No Symptoms HEENT: Reports: No Symptoms Respiratory: Reports: No Symptoms Cardiovascular: Reports: No Symptoms Endocrine: Reports: High Glucose GI/Abdominal: Reports: No Symptoms : Reports: No Symptoms Musculoskeletal: Reports: No Symptoms Skin: Reports: No Symptoms Neurological: Reports: No Symptoms Psychiatric: Reports: No Symptoms Hematologic/Lymphatic: Reports: No Symptoms Immunologic: Reports: No Symptoms ED EXAM, GENERAL - Physical Exam Exam: See Below Exam Limited By: No Limitations General Appearance: Alert, No Apparent Distress Eye Exam: Bilateral Eye: PERRL Ears: Normal External Exam, Normal Canal, Hearing Grossly Normal Nose: Normal Inspection, Normal Mucosa, No Blood Throat/Mouth: Normal Inspection, Normal Lips, Normal Teeth Head: Atraumatic, Normocephalic Neck: Normal Inspection, Supple, Non-Tender, Full Range of Motion Respiratory/Chest: No Respiratory Distress, Lungs Clear, Normal Breath Sounds, No Accessory Muscle Use, Chest Non-Tender Cardiovascular: Normal Peripheral Pulses, Regular Rate, Rhythm, No Edema, No Gallop, No JVD, No Murmur GI/Abdominal: Normal Bowel Sounds, Soft, Non-Tender, No Organomegaly Back Exam: Normal Inspection, Full Range of Motion Extremities: Normal Inspection, Normal Range of Motion, Non-Tender Neurological: Alert, Oriented, CN II-XII Intact Psychiatric: Normal Affect Skin Exam: Warm Course - Vital Signs Text/Narrative:: Lab result was reviewed with patient and her daughter Humalog 20 U SC x1 NS 1 L bolus Repeat accu check [id number] Last Recorded V/S: Last Vital Signs Temp 36.5 C 07/11/20 21:10 Pulse 73 03/10/21 21:10 Resp 16 07/11/20 21:10 BP 183/61 H 07/11/20 21:10 Pulse Ox 73 L 07/11/20 21:10 - Orders/Labs/Meds Orders: Active Orders 24 hr Category Date Time Status Dextrose 50% in Water Med 07/11/20 20:57 Active 50 ml IVPUSH ASDIRECTED PRN Glucagon,Human Recombinant [GlucaGen] Med 07/11/20 20:57 Active 1 mg IM ASDIRECTED PRN Sodium Chloride 0.9% [Normal Saline] 1,000 ml Med 07/11/20 21:45 Ordered IV ASDIRECTED Sodium Chloride 0.9% [Saline Flush] Med 07/11/20 21:45 Ordered 10 ml FLUSH ASDIRECTED PRN Saline Lock Insert [OM.PC] Routine Oth 07/11/20 21:45 Ordered Medication Orders Dextrose/Water (50% Dextrose In Water 50 Ml Syringe) 50 ml IVPUSH ASDIRECTED PRN PRN Reason: Hypoglycemia Glucagon (Glucagon,Human Recombinant 1 Mg Vial) 1 mg IM ASDIRECTED PRN PRN Reason: Hypoglycemia Sodium Chloride (Normal Saline) 1,000 mls @ 999 mls/hr IV ASDIRECTED CHRISTINE Last Admin: 07/11/20 22:00 Dose: 999 mls/hr Documented by: Sodium Chloride (Sodium Chloride 0.9% 10 Ml Syringe) 10 ml FLUSH ASDIRECTED PRN PRN Reason: Keep Vein Open Last Admin: 07/11/20 22:00 Dose: 10 ml Documented by: Labs: Laboratory Tests 07/11/20 07/11/20 Range/Units 21:25 21:25 WBC 6.6 (3.0-10.3) x10-3/uL RBC 3.22 L (3.60-5.20) x10(6)uL Hgb 10.6 L (11.4-15.5) g/dL Hct 31.1 L (34.2-48.2) % MCV 96.4 (76.7-100.5) fL MCH 32.8 (23.9-33.9) pg MCHC 34.1 (31.9-34.8) g/dL RDW 15.2 (12.3-16.5) % Plt Count 235 (151-488) x10(3)uL MPV 9.1 (7.1-12.4) fL Neut % (Auto) 56.7 (30.8-76.2) % Lymph % (Auto) 28.3 (18.4-52.1) % [place] % (Auto) 10.1 (4.4-15.7) % Eos % (Auto) 4.3 (0.6-8.1) % Baso % (Auto) 0.6 (0.2-1.5) % Neut # (Auto) 3.8 (1.5-6.3) x10-3/uL Lymph # (Auto) 1.9 (1.0-4.4) x10-3/uL [place] # (Auto) 0.7 (0.3-1.0) x10-3/uL Eos # (Auto) 0.3 (0.0-0.8) x10-3/uL Baso # (Auto) 0.0 (0.0-0.1) x10-3/uL Sodium 130 L D (135-145) mmol/L Potassium 3.5 (3.5-5.3) mmol/L Chloride 94 L D (100-110) mmol/L Carbon Dioxide 26 (21-32) mmol/L BUN 37 H D (7-18) mg/dL Creatinine 2.2 H* (0.55-1.02) mg/dL Est Cr Clr Drug Dosing 12.94 mL/min Estimated GFR (MDRD) 21 L (>60) BUN/Creatinine Ratio 16.8 (9-20) Glucose 480 H* D (80-116) mg/dL Calcium 8.9 (8.6-10.2) mg/dL Meds: Medications Generic Name Dose Route Start Last Admin Trade Name Freq PRN Reason Stop Dose Admin Dextrose/Water 50 ml 07/11/20 20:57 50% Dextrose In Water 50 Ml Syringe IVPUSH ASDIRECTED PRN Hypoglycemia Glucagon 1 mg 07/11/20 20:57 Glucagon,Human Recombinant 1 Mg Vial IM ASDIRECTED PRN Hypoglycemia Sodium Chloride 1,000 mls @ 999 mls/hr 07/11/20 21:45 07/11/20 22:00 Normal Saline IV 999 mls/hr ASDIRECTED CHRISTINE Administration Sodium Chloride 10 ml 07/11/20 21:45 07/11/20 22:00 Sodium Chloride 0.9% 10 Ml Syringe FLUSH 10 ml ASDIRECTED PRN Administration Keep Vein Open Discontinued Medications Generic Name Dose Route Start Last Admin Trade Name Carlos Alberto PRN Reason Stop Dose Admin Insulin Human Lispro 20 unit 07/11/20 20:57 07/11/20 21:06 Insulin Lispro 100 Unit/Ml 3 Ml Kwikpen SUBCUT 07/11/20 20:58 20 units NOW STA Administration Departure - Departure Time of Disposition: 22:30 Disposition: DC/Tfer to [facility] Condition: Good Clinical Impression: Hyperglycemia, Dehydration DM2 (diabetes mellitus, type 2) Qualifiers: Diabetes mellitus complication status: without complication - Discharge Information Instructions: Dehydration, Adult, [id number], Hyperglycemia, [id number], Type 2 Diabetes Mellitus, Self Care, Adult, [id number] Referrals: Gaurav Robles MD [Primary Care Provider] - Forms: ED Department Discharge Additional Instructions: Please read discharge instructions on high blood sugar Increase Lantus to 6 U SQ at bed time Do not take your furosemide for 3 days Bring the record of your blood sugar readings to your upcoming Drs appointment so they adjust your Lantus as needed Sepsis Event Note (ED) - Focused Exam Vital Signs: Vital Signs Temp Pulse Resp BP Pulse Ox 07/11/20 21:10 36.5 C 73 16 183/61 H 73 L - My Orders Last 24 Hours: My Active Orders 07/11/20 20:57 Dextrose 50% in Water 50 ml IVPUSH ASDIRECTED PRN Glucagon,Human Recombinant [GlucaGen] 1 mg IM ASDIRECTED PRN 07/11/20 21:45 Sodium Chloride 0.9% [Normal Saline] 1,000 ml IV ASDIRECTED Sodium Chloride 0.9% [Saline Flush] 10 ml FLUSH ASDIRECTED PRN Saline Lock Insert [OM.PC] Routine - Assessment/Plan Last 24 Hours: My Active Orders 07/11/20 20:57 Dextrose 50% in Water 50 ml IVPUSH ASDIRECTED PRN Glucagon,Human Recombinant [GlucaGen] 1 mg IM ASDIRECTED PRN 07/11/20 21:45 Sodium Chloride 0.9% [Normal Saline] 1,000 ml IV ASDIRECTED Sodium Chloride 0.9% [Saline Flush] 10 ml FLUSH ASDIRECTED PRN Saline Lock Insert [OM.PC] Routine
[2020-07-11] MEDS ORDERED: Sodium Chloride 0.9% 10 ML Syringe FLUSH PRN (21:45)
[2020-07-11] MEDS ORDERED: Sodium Chloride 0.9% 1,000 ML IV SCH (21:45)
[2020-07-11 23:35] VITALS: BP 162/67; PULSE 78
== END 2020-07-11 23:20 | disposition home or self-care (01) ==
LOC: FB.ED 20:41
DX: E11.65 Type 2 diabetes mellitus with hyperglycemia (principal); E86.0 Dehydration; I48.91 Unspecified atrial fibrillation; E78.00 Pure hypercholesterolemia, unspecified; J45.909 Unspecified asthma, uncomplicated; I12.9 Hypertensive chronic kidney disease with stage 1 through stage 4 chronic kidney disease, or unspecified chronic kidney disease; E11.22 Type 2 diabetes mellitus with diabetic chronic kidney disease; N18.9 Chronic kidney disease, unspecified; M19.90 Unspecified osteoarthritis, unspecified site; M10.9 Gout, unspecified; Z79.82 Long term (current) use of aspirin; Z86.73 Personal history of transient ischemic attack (TIA), and cerebral infarction without residual deficits; Z79.899 Other long term (current) drug therapy; Z88.8 Allergy status to other drugs, medicaments and biological substances; Z88.0 Allergy status to penicillin; Z88.2 Allergy status to sulfonamides; Z91.041 Radiographic dye allergy status
CPT/HCPCS: 36415; 80048; 82962; 85025; 99284; J1815; J7030

== ENCOUNTER 2020-07-20 16:04 | Inpatient (IN) | payer MEDICARE, OTHER ==
[2020-07-20] MEDS ORDERED: 50% Dextrose in Water 50 ML Syringe IVPUSH PRN (17:12)
[2020-07-20] MEDS ORDERED: Glucagon,Human Recombinant 1 MG Vial IM PRN (17:12)
[2020-07-20] MEDS ORDERED: Acetaminophen 325 MG Tab PO PRN (17:12)
[2020-07-20] MEDS ORDERED: Polyethylene Glycol 3350 Powder 17 GM Packet PO PRN (17:28)
--- NOTE | 2020-07-20 17:35 | PCM.HP.2 ---
H&P History of Present Illness - General Date of Service: 07/20/20 Admit Problem/Dx: Admission Diagnosis/Problem Admission Diagnosis/Problem Fall Source of Information: Patient, Provider - History of Present Illness Initial Comments - Free Text/Narative: Sophie was seen in [facility] today for follow up of EGD results from Thursday, the cultures and pathology are not back at time of note. While she was there, she was exhibiting confused behaviors, talking about doing things with her who has been for few years, also having visual hallucinations with provider and her daughter. She had sustained a fall at her apartment on Thursday, was reaching for water bottle on the floor and fell hitting her face against corner of table per patient. She states she did not lose consciousness. She has some neck pain when touched, denies difficulty moving it. She has been having tremors which were more pronounced in the clinic than usual. She reports she has had them since her strokes. Her Chemistry and CBC in the clinic were unremarkable, they had not been able to get UA there. Direct admission for increased confusion, visual hallucinations, fall. - Related Data Allergies/Adverse Reactions: Allergies Allergy/AdvReac Type Severity Reaction Status Date / Time atorvastatin Allergy Hives Verified 06/15/20 16:33 Penicillins Allergy Other Verified 06/15/20 16:33 pregabalin [From Lyrica] Allergy Cannot Verified 06/15/20 16:33 Remember Sulfa (Sulfonamide Allergy Rash Verified 06/15/20 16:33 Antibiotics) iv dye Allergy Rash Uncoded 09/22/18 12:52 Home Medications: Home Meds Allopurinol [Zyloprim] 100 mg PO DAILY 11/25/15 [History] Fluticasone/Salmeterol [Advair Diskus 500-50] 1 puff IH BID 09/18/16 [History] Acetaminophen [Tylenol] 650 mg PO Q4H PRN #0 tablet 09/21/16 [Rx] Quinapril HCl [Accupril] 10 mg PO BEDTIME tablet 09/21/16 [Rx] Albuterol Sulfate [Albuterol Sulfate Hfa] 2 puff IH Q4H PRN 09/22/18 [History] Cholecalciferol (Vitamin D3) [Vitamin D3] 2,000 unit PO DAILY 09/22/18 [History] Furosemide [Lasix] 20 mg PO DAILY 09/22/18 [History] Lactobacillus Rhamnosus GG [[employer]] 1 cap PO DAILY 09/22/18 [History] Levothyroxine 75 mcg PO MOTUWETHFRSA 09/22/18 [History] Multivit-Min/FA/Lycopen/Lutein [Certavite Senior Tablet] 1 tab PO DAILY 09/22/18 [History] Citalopram Hydrobromide [Celexa] 20 mg PO DAILY 06/10/20 [History] Ferrous Sulfate 325 mg PO DAILY 06/10/20 [History] Carboxymethylcellulose Sodium [Refresh Tears] 1 drop EYEBOTH BID 06/11/20 [History] ondansetron HCL [Zofran] 4 mg PO Q8H PRN 06/25/20 [History] Metoprolol Succinate [Toprol XL 100mg] 50 mg PO DAILY 30 Days #15 tab.er 06/27/20 [Rx] Aspirin [Halfprin] 81 mg PO DAILY 07/20/20 [History] Insulin Glarg,Human.Rec.Analog [Lantus Solostar] 18 units SUBCUT BEDTIME 07/20/20 [History] Insulin Lispro [Humalog] 8 units SUBCUT DAILY@1600 PRN 07/20/20 [History] Loperamide [Imodium] 4 mg PO BID PRN 07/20/20 [History] Pantoprazole Sodium [Protonix] 40 mg PO DAILY 07/20/20 [History] polyethylene glycoL 3350 [MiraLAX] 17 gm PO DAILY PRN 07/20/20 [History] Past Medical History HEENT History: Reports: Allergic Rhinitis, Cataract, Hard of Hearing, Impaired Vision, Other (See Below) Other HEENT History: no peripheral vision on right since 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 Colonoscopy 07-11-2016 Genitourinary History: Reports: Chronic Renal Insuffiency [facility] ASSISTANT History: Reports: Musculoskeletal History: Reports: Arthritis, Back Pain, Chronic, Fibromyalgia, Gout Neurological History: Reports: CVA, Headaches, Chronic Psychiatric History: Reports: Anxiety, Depression Endocrine/Metabolic History: Reports: Diabetes, Type II Hematologic History: Reports: Anticoagulation Therapy Immunologic History: Reports: None Oncologic (Cancer) History: Reports: None Dermatologic History: Reports: None - Infectious Disease History Infectious Disease History: Reports: Chicken Pox, Influenza, Measles, Mumps, Shingles - Past Surgical History Head Surgeries/Procedures: Reports: None HEENT Surgical History: Reports: Cataract Surgery Cardiovascular Surgical History: Reports: Other (See Below) Other Cardiovascular Surgeries/Procedures: open heart surgery for tumor Respiratory Surgical History: Reports: None GI Surgical History: Reports: Cholecystectomy Female Surgical History: Reports: Hysterectomy, Other (See Below) Endocrine Surgical History: Reports: None Neurological Surgical History: Reports: Other (See Below) Other Neurological Surgeries/Procedures: 3 back surgeries, states she needs a fourth. Musculoskeletal Surgical History: Reports: Carpal Tunnel Other Musculoskeletal Surgeries/Procedures:: back surgerys times 3 Oncologic Surgical History: Reports: None Dermatological Surgical History: Reports: None Social & Family History - Family History Family Medical History: No Pertinent Family History HEENT: Reports: Impaired Vision Cardiac: Reports: Heart Failure, High Cholesterol, Hypertension, [place] Respiratory: Reports: Asthma GI: Reports: Colon Polyps : Reports: Other (See Below) Other Family History: brother had blood disease that led to kidney disease OBGYN: Reports: Fibroids, Musculoskeletal: Reports: Gout Neurological: Reports: CVA, Migraines Psychiatric: Reports: Depression Endocrine/Metabolic: Reports: Diabetes, type II Hematologic: Reports: None Immunologic: Reports: Solid Organ Transplant Dermatologic: Reports: Eczema Oncologic: Reports: Skin - Tobacco Use Tobacco Use Status *Q: Never Tobacco User - Caffeine Use Caffeine Use: Reports: None Other Caffeine Use: diet soda Caffeine Use Comment: Occassional - Recreational Drug Use Recreational Drug Use: No - Living Situation & Occupation Living situation: Reports: Occupation: Retired H&P Review of Systems - Review of Systems: Review Of Systems: See Below Reason Not Obtained: Limited due to confusion General: Reports: No Symptoms Pulmonary: Reports: No Symptoms Cardiovascular: Reports: No Symptoms Gastrointestinal: Reports: Decreased Appetite, Nausea. Denies: Abdominal Pain Genitourinary: Reports: No Symptoms Musculoskeletal: Reports: Neck Pain Psychiatric: Reports: Confusion, Hallucinations (Visual) Neurological: Reports: Tremors Exam - Exam Exam: See Below - Vital Signs Vital Signs: Last Vital Signs Temp 97.4 F 07/20/20 16:10 Pulse 82 07/20/20 16:10 Resp 16 07/20/20 16:10 BP 160/79 H 07/20/20 16:10 Pulse Ox 97 07/20/20 16:10 - Exam General: Alert, Cooperative. No: Oriented HEENT: PERRLA, Conjunctiva Clear, EOMI, Hearing Intact, Mucosa Moist & [place], Nares Patent, Other (Normocephalic, ecchymosis on right maxilla/mandible, no step offs but TTP over right maxilla/mandible, no raccoon eyes or acuña sign) Neck: Supple (TTP over paraspinal mm), Trachea Midline. No: Lymphadenopathy Lungs: Clear to Auscultation, Normal Respiratory Effort Cardiovascular: Regular Rate, Irregular Rhythm GI/Abdominal Exam: Normal Bowel Sounds, Soft, No Distention, Tender (suprapubic(states has to urinate)) (Female) Exam: Deferred Rectal (Female) Exam: Deferred Back Exam: Paraspinal Tenderness (cervical spine, no step offs noted.). No: CVA Tenderness (R), CVA Tenderness (L) Extremities: No Pedal Edema Peripheral Pulses: 2+: Radial (L), Radial (R) Skin: Warm, Dry, Intact, Ecchymosis (right nasolabial fold, right upper lip, right jaw) Neuro Extensive - Mental Status: Disorientation to Place, Disorientation to Time. No: Oriented x3 Neuro Extensive - Motor, Sensory, Reflexes: Tremor Psychiatric: Hallucinations - Patient Data Lab Results Last 24 hrs: Laboratory Results - last 24 hr 07/20/20 Range/Units 16:42 Urine Color Yellow (YELLOW) Urine Appearance Clear (CLEAR) Urine pH 6.5 (5.0-6.5) Ur Specific [place] 1.010 (1.010-1.025) Urine Protein Negative (NEGATIVE) mg/dL Urine Glucose (UA) >1000 H (NORMAL) mg/dL Urine Ketones Negative (NEGATIVE) mg/dL Urine Occult Blood Negative (NEGATIVE) Urine Nitrite Negative (NEGATIVE) Urine Bilirubin Negative (NEGATIVE) Urine Urobilinogen Normal (NEGATIVE) mg/dL Ur Leukocyte Esterase Negative (NEGATIVE) Urine RBC Not seen (0-5) Urine WBC 0-5 (0-5) Ur Squamous Epith Cells Few H (NS,R,O) Urine Bacteria Few H (NS) Sepsis Event Note - Evaluation Sepsis Screening Result: No Definite Risk - Focused Exam Vital Signs: Vital Signs Temp Pulse Resp BP Pulse Ox 07/20/20 16:10 97.4 F 82 16 160/79 H 97 - Problem List (1) Fall SNOMED Code(s): 8431337, 970373807 ICD Code: W19.XXXA - UNSPECIFIED FALL, INITIAL ENCOUNTER Status: Acute Current Visit: Yes Onset Date: ~07/17/20 (2) Head injury SNOMED Code(s): 28301972 ICD Code: S09.90XA - UNSPECIFIED INJURY OF HEAD, INITIAL ENCOUNTER Status: Acute Current Visit: Yes Onset Date: ~07/17/20 (3) Confusion SNOMED Code(s): 232548180 ICD Code: R41.0 - DISORIENTATION, UNSPECIFIED Status: Acute Current Visit: Yes (4) Multi-infarct dementia SNOMED Code(s): 33043846 ICD Code: F01.50 - VASCULAR DEMENTIA WITHOUT BEHAVIORAL DISTURBANCE Status: Acute Current Visit: Yes (5) CHF, Congestive heart failure SNOMED Code(s): 86393723 ICD Code: I50.9 - HEART FAILURE, UNSPECIFIED Status: Chronic Current Visit: No (6) Chronic a-fib SNOMED Code(s): 354089048 ICD Code: I48.20 - CHRONIC ATRIAL FIBRILLATION, UNSPECIFIED Status: Chronic Current Visit: No (7) DM2 (diabetes mellitus, type 2) SNOMED Code(s): 88725328 ICD Code: E11.9 - TYPE 2 DIABETES MELLITUS WITHOUT COMPLICATIONS Status: Chronic Current Visit: No Qualifiers: Diabetes mellitus complication status: without complication (8) HTN (hypertension) SNOMED Code(s): 40830323 ICD Code: I10 - ESSENTIAL (PRIMARY) HYPERTENSION Status: Chronic Current Visit: No Qualifiers: Hypertension type: essential hypertension Qualified Code(s): I10 - Essential (primary) hypertension (9) Palliative care status SNOMED Code(s): 916671507 ICD Code: Z51.5 - ENCOUNTER FOR PALLIATIVE CARE Status: Acute Current Visit: Yes Problem List Initiated/Reviewed/Updated: Yes Orders Last 24hrs: Active Orders 24 hr Category Date Time Status Patient Status [ADT] Routine ADT 07/20/20 16:15 Active Oxygen Therapy [RC] PRN Care 07/20/20 16:15 Active Up With Assistance [RC] ASDIRECTED Care 07/20/20 16:15 Active Up to Chair [RC] ASDIRECTED Care 07/20/20 16:15 Active VTE/DVT Education [RC] Per Unit Routine Care 07/20/20 16:15 Active Vital Signs [RC] Q4H Care 07/20/20 16:15 Active Regular Diet [DIET] Diet 07/20/20 Dinner Ordered Cervical Spine wo Cont [CT] Stat Exams 07/20/20 16:15 Ordered Head wo Cont [CT] Stat Exams 07/20/20 16:15 Taken BASIC METABOLIC PANEL,BMP [CHEM] Routine Lab 07/21/20 06:00 Ordered CBC WITH AUTO DIFF [HEME] Routine Lab 07/21/20 06:00 Ordered CORONAVIRUS COVID-19 RODNEY [MOLEC] Stat Lab 07/20/20 17:10 Received Acetaminophen [TylenoL] Med 07/20/20 17:12 Active 650 mg PO Q4H PRN Aspirin [Halfprin] Med 07/21/20 09:00 Active 81 mg PO DAILY Carboxymethylcellulose Sodium [Refresh Tears 0.5%] Med 07/20/20 21:00 Active 0 ml EYEBOTH BID Cholecalciferol (Vitamin D3) [Vitamin D3] Med 07/21/20 09:00 Active 50 mcg PO DAILY Citalopram Hydrobromide [Celexa] Med 07/21/20 09:00 Ordered 20 mg PO DAILY Dextrose 50% in Water Med 07/20/20 17:12 Active 50 ml IVPUSH ASDIRECTED PRN Ferrous Sulfate Med 07/21/20 09:00 Active 325 mg PO DAILY Fluticasone/Salmeterol [Advair Diskus 500-50] Med 07/20/20 21:00 Ordered 1 puff IH BID Furosemide [Lasix] Med 07/21/20 09:00 Active 20 mg PO DAILY Glucagon,Human Recombinant [GlucaGen] Med 07/20/20 17:12 Active 1 mg IM ASDIRECTED PRN Insulin Glarg,Human.Rec.Analog [LantUS Solostar] Med 07/20/20 21:00 Ordered 18 units SUBCUT BEDTIME Insulin Lispro [HumaLOG] Med 07/20/20 18:00 Ordered See Protocol SUBCUT TIDMEALS [facility]us [facility]] Med 07/21/20 09:00 Ordered 1 cap PO DAILY Levothyroxine Med 07/21/20 06:00 Ordered 75 mcg PO MOTUWETHFRSA Metoprolol Succinate [Toprol XL] Med 07/21/20 09:00 Ordered 50 mg PO DAILY Multivit-Min/FA/Lycopen/Lutein [Certavite Senior Tablet Med 07/21/20 09:00 Ordered ] 1 tab PO DAILY Pantoprazole [ProTONIX] Med 07/21/20 09:00 Ordered 40 mg PO DAILY Quinapril HCl [Accupril] Med 07/20/20 21:00 Ordered 10 mg PO BEDTIME Sodium Chloride 0.9% [Saline Flush] Med 07/20/20 16:15 Active 10 ml FLUSH ASDIRECTED PRN allopurinoL [Zyloprim] Med 07/21/20 09:00 Active 100 mg PO DAILY polyethylene glycoL 3350 [MiraLAX] Med 07/20/20 17:12 Ordered 17 gm PO DAILY PRN Antiembolic Hose [OM.PC] Per Unit Routine Oth 07/20/20 16:16 Ordered Saline Lock Insert [OM.PC] Routine Oth 07/20/20 16:15 Ordered Resuscitation Status Routine Resus Stat 07/20/20 16:15 Ordered Medication Orders Acetaminophen (Acetaminophen 325 Mg Tab) 650 mg PO Q4H PRN PRN Reason: Pain Allopurinol (Allopurinol 100 Mg Tab *Ptom) 100 mg PO DAILY [facility] Artificial Tears (Carboxymethylcellulose Sodium 0.5% Ophth Soln 15 Ml Bottle) 0 ml EYEBOTH BID [facility] Aspirin (Aspirin 81 Mg Tab.Ec *Ptom) 81 mg PO DAILY [facility] Cholecalciferol (Cholecalciferol (Vitamin D3) 25 Mcg Tab *Ptom) 50 mcg PO DAILY [facility] Citalopram Hydrobromide (Citalopram 20 Mg Tab *Ptom) 20 mg PO DAILY [facility] Dextrose/Water (50% Dextrose In Water 50 Ml Syringe) 50 ml IVPUSH ASDIRECTED PRN PRN Reason: Hypoglycemia Ferrous Sulfate (Ferrous Sulfate 325 Mg Tab *Ptom) 325 mg PO DAILY [facility] Furosemide (Furosemide 20 Mg Tab *Ptom) 20 mg PO DAILY [facility] Glucagon (Glucagon,Human Recombinant 1 Mg Vial) 1 mg IM ASDIRECTED PRN PRN Reason: Hypoglycemia Insulin Glargine (Insulin Glargine,Human Rec. Analog 100 Units/Ml 3 Ml Pen *Ptom) 18 units SUBCUT BEDTIME [facility] Insulin Human Lispro (Insulin Lispro 100 Unit/Ml 3 Ml Kwikpen *Ptom) 0 unit SUBCUT TIDMEALS [facility]; Protocol Levothyroxine Sodium (Levothyroxine 75 Mcg Tab *Ptom) 75 mcg PO MOTUWETHFRSA [facility] Metoprolol Succinate (Metoprolol Succinate 50 Mg Tab.Er *Ptom) 50 mg PO DAILY [facility] (Fluticasone/Salmeterol [Advair Diskus 500-50] 14 Puff/Dis *Ptom 1 puff INH BID [facility] Lactobacillus Rhamnosus Gg [ [employer] [place]] *Ptom 1 cap PO DAILY [facility] Non-Formulary Medication (Multivit-Min/Fa/Lycopen/Lutein [Certavite Senior Tablet]) 1 tab PO DAILY [facility] Non-Formulary Medication (Quinapril Hcl [Accupril]) 10 mg PO BEDTIME [facility] Pantoprazole Sodium (Pantoprazole 40 Mg Tab.Cr) 40 mg PO DAILY [facility] Polyethylene Glycol (Polyethylene Glycol 3350 Powder 238 Gm Bot) 17 gm PO DAILY PRN PRN Reason: Constipation Sodium Chloride (Sodium Chloride 0.9% 10 Ml Syringe) 10 ml FLUSH ASDIRECTED PRN PRN Reason: Keep Vein Open Assessment/Plan Comment:: 1. Direct admission for observation for fall, head injury, confusion with hallucinations. 2. Fall: CT head/neck were negative for acute changed. Multi-infarcts that were old, atrophy but not worsening from last MRI head. Radiology questioned multi- infarct dementia would correlate with her symptoms. If she continues to have worsening confusion, recommended repeating MRI head as CT does not get a good image of the aliza. 3. Confusion/Multi-infarct dementia: will observe for worsening symptoms, adjust treatments as necessary. UA negative, except for >1000 glucose. 4. Diet: Regular as she does not tolerate a lot of foods. She was restarted on her insulin at lower doses then last admission. 5. Activity: up with assistance. 6. DVT: aspirin, TEDs. 7. CODE STATUS: DNR/DNI. 8. Discharge planning: will observe over the next 24-48 hours in regards to her confusion, she may need more care at [facility] if confusion, change in cognition is more from all her previous strokes rather than some acute disease. - Mortality Measure Prognosis:: Poor
--- NOTE | 2020-07-20 18:01 | CT ---
INDICATION: Falls, confusion this a.m. CT HEAD WITHOUT CONTRAST: Spiral 3.75 mm axial sections were obtained through the brain without contrast with axial, sagittal and coronal reconstructions 07/20/20 and compared with previous MRI of the brain dated 11/23/15. Total exam DLP was 1244.99 mGy-cm. Probable retention cysts are noted in posterior ethmoidal air cells x2 with paranasal sinuses otherwise well aerated. Mastoid air cells appear to be well aerated. No cranial abnormality/fracture was noted. The orbits appear to be intact. No shift of midline structures was noted. Ventricles are mildly prominent, compatible with patient's age and mild degree of central atrophy. 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 An additional moderately large area of parasagittal decreased density is noted in the left occipital lobe, which was present previously and likely represents encephalomalacia due to a previous thrombotic CVA. A focal area of decreased density in the right cerebellum is again noted, compatible with an infarct in that area. In the aliza, it is difficult to exclude an area of ischemia right laterally; however, detail in that area can be limited by adjacent dense bony structures of the petrous ridges. MRI might be helpful in that case. On the previous MRI, there were noted a few smaller areas of abnormal density, suggesting previous infarcts of small size in the aliza. The white matter changes appear to be similar to the previous examination by MRI of 2016. No definite new acute abnormalities were noted intracranially. No bleeding site or hematoma was noted. There appear to be some calcifications in the internal carotid arteries. IMPRESSION: 1. No definite acute abnormality intracranially; however, in areas of decreased density seen previously, adjacent areas of ischemia are difficult to exclude, especially with a change in examination type. The possibility of an acute change in the right aliza cannot be entirely excluded - MRI may be helpful in that regard, depending upon clinical necessity. 2. Cerebrovascular disease with moderately severe microvascular disease-type changes which show little change from the previous study. 3. Areas of encephalomalacia in the bell matter are noted in the right posterior parietal and parasagittal left occipital areas - much larger in the left occipital area, compatible with previous thrombotic CVAs - correlate clinically. 4. Mild central atrophy and minimal cortical atrophy allowing for the patient's age. Report was called to Dr. Magaly Meza MD at [id number] 07/20/20. [facility]
--- NOTE | 2020-07-20 18:09 | CT ---
INDICATION: Fall. Neck pain. CT OF THE CERVICAL SPINE: Spiral 2.5 mm axial sections were obtained through the cervical spine with sagittal and coronal reconstructions 07/20/20 - no comparison. Total exam DLP was 322.86 mGy-cm. The odontoid, atlas and axis appear to be intact. A definite acute fracture or dislocation was not identified. Fairly severe osteoarthritic changes are noted at the odontoatlantian joint with periarticular calcifications. Degenerative changes are noted at the lateral masses of the upper through lower levels of the cervical spine and also at uncinate joints as well as off vertebral bodies, most prominently at C6-7 with most prominent disk disease at that level also. Disk disease is also suggested at C5-6 and C7-T1 with grade 1 anterolisthesis at C7-T1. Neural foramina do not appear to be grossly impinged upon. A minimal rotatory scoliosis dextroconcave is suggested. Prevertebral space appeared to be normal. Bone density may be somewhat decreased, suggesting osteoporosis. IMPRESSION: 1. No definite acute fracture or dislocation. 2. Osteoarthritis and disk disease with osteoarthritis throughout the cervical spine and at least up to the T2 level and with disk disease most prominently at C5 through T1. Report was called to Dr. Magaly Meza MD at [id number] 07/20/20. [facility] [place]
[2020-07-20] MEDS: NOVOLOG 100 UNIT/ML SUBCUT SCH (18:53)
[2020-07-20] MEDS ORDERED: Insulin Glargine,Human Rec. Analog 100 Units/ML 3 ML Pen *PTOM SUBCUT SCH (21:00)
[2020-07-20] MEDS: Carboxymethylcellulose Sodium 0.5% Ophth Soln 15 ML Bottle EYEBOTH SCH (21:09)
[2020-07-20] MEDS: SALMETEROL INH SCH (21:09)
[2020-07-20] MEDS: FLUTICASONE INH SCH (21:09)
[2020-07-20] MEDS: DIS INH SCH (21:09)
[2020-07-21] MEDS ORDERED: Levothyroxine 75 MCG Tab *PTOM PO SCH (06:00)
[2020-07-21] MEDS ORDERED: Multivitamins with Iron/Calcium/Folic Acid/Minerals Tab *PTOM PO SCH (09:00)
[2020-07-21] MEDS ORDERED: Allopurinol 100 MG Tab *PTOM PO SCH (09:00)
[2020-07-21] MEDS ORDERED: LACTOBACILLUS RHAMNOSUS GG PO SCH (09:00)
[2020-07-21] MEDS ORDERED: Metoprolol Succinate 50 MG Tab.ER *PTOM PO SCH (09:00)
[2020-07-21] MEDS ORDERED: Cholecalciferol (Vitamin D3) 25 MCG Tab *PTOM PO SCH (09:00)
[2020-07-21] MEDS ORDERED: Aspirin 81 MG Tab.EC *PTOM PO SCH (09:00)
[2020-07-21] MEDS ORDERED: Pantoprazole 40 MG Tab.CR *PTOM PO SCH (09:00)
[2020-07-21] MEDS ORDERED: Citalopram 20 MG Tab *PTOM PO SCH (09:00)
[2020-07-21] MEDS ORDERED: Furosemide 20 MG Tab *PTOM PO SCH (09:00)
[2020-07-21] MEDS ORDERED: Sodium Chloride 0.9% 1,000 ML IV SCH (09:45)
[2020-07-21] MEDS: NOVOLOG 100 UNIT/ML SUBCUT SCH ×3 (09:51→18:06)
[2020-07-21] MEDS: Ferrous Sulfate 325 MG Tab PO SCH (09:56)
[2020-07-21] MEDS: DIS INH SCH ×2 (09:59→21:06)
[2020-07-21] MEDS: SALMETEROL INH SCH ×2 (09:59→21:06)
[2020-07-21] MEDS: FLUTICASONE INH SCH ×2 (09:59→21:06)
[2020-07-21] MEDS: Carboxymethylcellulose Sodium 0.5% Ophth Soln 15 ML Bottle EYEBOTH SCH ×2 (10:06→21:06)
[2020-07-21] MEDS: Sodium Chloride 0.9% 10 ML Syringe FLUSH PRN ×2 (12:06→20:53)
--- NOTE | 2020-07-21 13:48 | PCM.PN ---
- General Info Date of Service: 07/21/20 Subjective Update: Sophie is feeling a little better today, some nausea after breakfast this morning. States sometimes 7up or sprite does help. Denies any chest pain, shortness of breath, some epigastric pain, more sore. No diarrhea. - Patient Data Vitals - Most Recent: Last Vital Signs Temp 97.4 F 07/21/20 00:00 Pulse 68 07/21/20 10:12 Resp 18 07/21/20 00:00 BP 128/70 07/21/20 10:12 Pulse Ox 100 07/21/20 00:00 Weight - Most Recent: 146 lb 4 oz I&O - Last 24 Hours: Intake & Output 07/20/20 07/21/20 07/21/20 22:59 06:59 14:59 Output Total 400 Balance -400 Lab Results Last 24 Hours: Laboratory Results - last 24 hr 07/20/20 07/20/20 07/20/20 Range/Units 16:42 17:10 18:45 WBC (3.0-10.3) x10-3/uL RBC (3.60-5.20) x10(6)uL Hgb (11.4-15.5) g/dL Hct (34.2-48.2) % MCV (76.7-100.5) fL MCH (23.9-33.9) pg MCHC (31.9-34.8) g/dL RDW (12.3-16.5) % Plt Count (151-488) x10(3)uL MPV (7.1-12.4) fL Neut % (Auto) (30.8-76.2) % Lymph % (Auto) (18.4-52.1) % [place] % (Auto) (4.4-15.7) % Eos % (Auto) (0.6-8.1) % Baso % (Auto) (0.2-1.5) % Neut # (Auto) (1.5-6.3) x10-3/uL Lymph # (Auto) (1.0-4.4) x10-3/uL [place]ink[place] # (Auto) (0.3-1.0) x10-3/uL Eos # (Auto) (0.0-0.8) x10-3/uL Baso # (Auto) (0.0-0.1) x10-3/uL Sodium (135-145) mmol/L Potassium (3.5-5.3) mmol/L Chloride (100-110) mmol/L Carbon Dioxide (21-32) mmol/L BUN (7-18) mg/dL Creatinine (0.55-1.02) mg/dL Est Cr Clr Drug Dosing mL/min Estimated GFR (MDRD) (>60) BUN/Creatinine Ratio (9-20) Glucose (80-116) mg/dL POC Glucose 221 H (74-100) mg/dL Calcium (8.6-10.2) mg/dL Urine Color Yellow (YELLOW) Urine Appearance Clear (CLEAR) Urine pH 6.5 (5.0-6.5) Ur Specific [place] 1.010 (1.010-1.025) Urine Protein Negative (NEGATIVE) mg/dL Urine Glucose (UA) >1000 H (NORMAL) mg/dL Urine Ketones Negative (NEGATIVE) mg/dL Urine Occult Blood Negative (NEGATIVE) Urine Nitrite Negative (NEGATIVE) Urine Bilirubin Negative (NEGATIVE) Urine Urobilinogen Normal (NEGATIVE) mg/dL Ur Leukocyte Esterase Negative (NEGATIVE) Urine RBC Not seen (0-5) Urine WBC 0-5 (0-5) Ur Squamous Epith Cells Few H (NS,R,O) Urine Bacteria Few H (NS) SARS-CoV-2 RNA (RODNEY) Negative (NEGATIVE) 07/20/20 07/21/20 07/21/20 Range/Units 21:04 06:20 06:20 WBC 6.3 (3.0-10.3) x10-3/uL RBC 3.02 L (3.60-5.20) x10(6)uL Hgb 9.9 L (11.4-15.5) g/dL Hct 29.8 L (34.2-48.2) % MCV 98.8 (76.7-100.5) fL MCH 32.9 (23.9-33.9) pg MCHC 33.3 (31.9-34.8) g/dL RDW 14.9 (12.3-16.5) % Plt Count 266 (151-488) x10(3)uL MPV 9.0 (7.1-12.4) fL Neut % (Auto) 55.9 (30.8-76.2) % Lymph % (Auto) 25.9 (18.4-52.1) % [place]ink[place] % (Auto) 12.5 (4.4-15.7) % Eos % (Auto) 5.2 (0.6-8.1) % Baso % (Auto) 0.5 (0.2-1.5) % Neut # (Auto) 3.5 (1.5-6.3) x10-3/uL Lymph # (Auto) 1.6 (1.0-4.4) x10-3/uL [place] # (Auto) 0.8 (0.3-1.0) x10-3/uL Eos # (Auto) 0.3 (0.0-0.8) x10-3/uL Baso # (Auto) 0.0 (0.0-0.1) x10-3/uL Sodium 139 (135-145) mmol/L Potassium 3.8 (3.5-5.3) mmol/L Chloride 104 D (100-110) mmol/L Carbon Dioxide 26 (21-32) mmol/L BUN 33 H (7-18) mg/dL Creatinine 1.7 H (0.55-1.02) mg/dL Est Cr Clr Drug Dosing 16.43 mL/min Estimated GFR (MDRD) 28 L (>60) BUN/Creatinine Ratio 19.4 (9-20) Glucose 135 H D (80-116) mg/dL POC Glucose 272 H (74-100) mg/dL Calcium 8.9 (8.6-10.2) mg/dL Urine Color (YELLOW) Urine Appearance (CLEAR) Urine pH (5.0-6.5) Ur Specific [place] (1.010-1.025) Urine Protein (NEGATIVE) mg/dL Urine Glucose (UA) (NORMAL) mg/dL Urine Ketones (NEGATIVE) mg/dL Urine Occult Blood (NEGATIVE) Urine Nitrite (NEGATIVE) Urine Bilirubin (NEGATIVE) Urine Urobilinogen (NEGATIVE) mg/dL Ur Leukocyte Esterase (NEGATIVE) Urine RBC (0-5) Urine WBC (0-5) Ur Squamous Epith Cells (NS,R,O) Urine Bacteria (NS) SARS-CoV-2 RNA (RODNEY) (NEGATIVE) 03/20/21 Range/Units 11:54 WBC (3.0-10.3) x10-3/uL RBC (3.60-5.20) x10(6)uL Hgb (11.4-15.5) g/dL Hct (34.2-48.2) % MCV (76.7-100.5) fL MCH (23.9-33.9) pg MCHC (31.9-34.8) g/dL RDW (12.3-16.5) % Plt Count (151-488) x10(3)uL MPV (7.1-12.4) fL Neut % (Auto) (30.8-76.2) % Lymph % (Auto) (18.4-52.1) % [place]ink[place] % (Auto) (4.4-15.7) % Eos % (Auto) (0.6-8.1) % Baso % (Auto) (0.2-1.5) % Neut # (Auto) (1.5-6.3) x10-3/uL Lymph # (Auto) (1.0-4.4) x10-3/uL [place] # (Auto) (0.3-1.0) x10-3/uL Eos # (Auto) (0.0-0.8) x10-3/uL Baso # (Auto) (0.0-0.1) x10-3/uL Sodium (135-145) mmol/L Potassium (3.5-5.3) mmol/L Chloride (100-110) mmol/L Carbon Dioxide (21-32) mmol/L BUN (7-18) mg/dL Creatinine (0.55-1.02) mg/dL Est Cr Clr Drug Dosing mL/min Estimated GFR (MDRD) (>60) BUN/Creatinine Ratio (9-20) Glucose (80-116) mg/dL POC Glucose 213 H (74-100) mg/dL Calcium (8.6-10.2) mg/dL Urine Color (YELLOW) Urine Appearance (CLEAR) Urine pH (5.0-6.5) Ur Specific [place] (1.010-1.025) Urine Protein (NEGATIVE) mg/dL Urine Glucose (UA) (NORMAL) mg/dL Urine Ketones (NEGATIVE) mg/dL Urine Occult Blood (NEGATIVE) Urine Nitrite (NEGATIVE) Urine Bilirubin (NEGATIVE) Urine Urobilinogen (NEGATIVE) mg/dL Ur Leukocyte Esterase (NEGATIVE) Urine RBC (0-5) Urine WBC (0-5) Ur Squamous Epith Cells (NS,R,O) Urine Bacteria (NS) SARS-CoV-2 RNA (RODNEY) (NEGATIVE) Med Orders - Current: Current Medications Acetaminophen (Acetaminophen 325 Mg Tab) 650 mg PO Q4H PRN PRN Reason: Pain Allopurinol (Allopurinol 100 Mg Tab *Ptom) 100 mg PO DAILY [facility] Last Admin: 07/21/20 09:56 Dose: 100 mg Documented by: Artificial Tears (Carboxymethylcellulose Sodium 0.5% Ophth Soln 15 Ml Bottle) 0 ml EYEBOTH BID [facility] Last Admin: 07/21/20 10:06 Dose: 1 drop Documented by: Aspirin (Aspirin 81 Mg Tab.Ec *Ptom) 81 mg PO DAILY [facility] Last Admin: 07/21/20 09:59 Dose: 81 mg Documented by: Cholecalciferol (Cholecalciferol (Vitamin D3) 25 Mcg Tab *Ptom) 50 mcg PO DAILY [facility] Last Admin: 07/21/20 10:23 Dose: 50 mcg Documented by: Citalopram Hydrobromide (Citalopram 20 Mg Tab *Ptom) 20 mg PO DAILY [facility] Last Admin: 07/21/20 09:56 Dose: 20 mg Documented by: Dextrose/Water (50% Dextrose In Water 50 Ml Syringe) 50 ml IVPUSH ASDIRECTED PRN PRN Reason: Hypoglycemia Ferrous Sulfate (Ferrous Sulfate 325 Mg Tab *Ptom) 325 mg PO DAILY [facility] Last Admin: 07/21/20 09:56 Dose: 325 mg Documented by: Furosemide (Furosemide 20 Mg Tab *Ptom) 20 mg PO DAILY [facility] Last Admin: 07/21/20 10:02 Dose: Not Given Documented by: Glucagon (Glucagon,Human Recombinant 1 Mg Vial) 1 mg IM ASDIRECTED PRN PRN Reason: Hypoglycemia Sodium Chloride (Normal Saline) 1,000 mls @ 100 mls/hr IV ASDIRECTED [facility] Stop: 07/21/20 19:44 Insulin Glargine (Insulin Glargine,Human Rec. Analog 100 Units/Ml 3 Ml Pen *Ptom) 18 units SUBCUT BEDTIME [facility] Last Admin: 07/20/20 21:11 Dose: 18 units Documented by: Insulin Human Lispro (Novolog 100 Unit/Ml 3 Ml Kwikpen *Ptom) 0 unit SUBCUT TIDMEALS [facility]; Protocol Last Admin: 07/21/20 12:06 Dose: 2 units Documented by: Levothyroxine Sodium (Levothyroxine 75 Mcg Tab *Ptom) 75 mcg PO MOTUWETHFRSA [facility] Last Admin: 07/21/20 06:27 Dose: 75 mcg Documented by: Metoprolol Succinate (Metoprolol Succinate 50 Mg Tab.Er *Ptom) 50 mg PO DAILY [facility] Last Admin: 07/21/20 10:12 Dose: 50 mg Documented by: Multivitamins/Minerals (Multivitamins With Iron/Calcium/Folic Acid/Minerals Tab *Ptom) 1 tab PO DAILY [facility] Last Admin: 07/21/20 10:13 Dose: 1 tab Documented by: (Fluticasone/Salmeterol [Advair Diskus 500-50] 14 Puff/Dis *Ptom 1 puff INH BID [facility] Last Admin: 07/21/20 09:59 Dose: 1 puff Documented by: Lactobacillus Rhamnosus Gg [ [facility]] *Ptom 1 cap PO DAILY [facility] Last Admin: 07/21/20 10:00 Dose: 1 cap Documented by: (Quinapril Hcl [ Accupril] 10 Mg Tablet) *Ptom 10 mg PO BEDTIME [facility] Last Admin: 07/20/20 21:11 Dose: 10 mg Documented by: Pantoprazole Sodium (Pantoprazole 40 Mg Tab.Cr *Ptom) 40 mg PO DAILY [facility] Last Admin: 07/21/20 10:06 Dose: 40 mg Documented by: Polyethylene Glycol (Polyethylene Glycol 3350 Powder 17 Gm Packet) 17 gm PO DAILY PRN PRN Reason: Constipation Sodium Chloride (Sodium Chloride 0.9% 10 Ml Syringe) 10 ml FLUSH ASDIRECTED PRN PRN Reason: Keep Vein Open Last Admin: 07/21/20 12:06 Dose: 10 ml Documented by: - Exam General: Alert, Oriented (to person), Cooperative. No: No Acute Distress Lungs: Clear to Auscultation, Normal Respiratory Effort. No: Wheezing Cardiovascular: Regular Rate, Irregular Rhythm GI/Abdominal Exam: Normal Bowel Sounds, Soft, No Distention, Guarding, Tender (epigastric). No: Rigid, Rebound Extremities: No Pedal Edema (dermatoliposclerosis BLE) Peripheral Pulses: 2+: Radial (L), Radial (R) - Patient Data Lab Results Last 24 hrs: Laboratory Results - last 24 hr 07/20/20 07/20/20 07/20/20 Range/Units 16:42 17:10 18:45 WBC (3.0-10.3) x10-3/uL RBC (3.60-5.20) x10(6)uL Hgb (11.4-15.5) g/dL Hct (34.2-48.2) % MCV (76.7-100.5) fL MCH (23.9-33.9) pg MCHC (31.9-34.8) g/dL RDW (12.3-16.5) % Plt Count (151-488) x10(3)uL MPV (7.1-12.4) fL Neut % (Auto) (30.8-76.2) % Lymph % (Auto) (18.4-52.1) % [place] % (Auto) (4.4-15.7) % Eos % (Auto) (0.6-8.1) % Baso % (Auto) (0.2-1.5) % Neut # (Auto) (1.5-6.3) x10-3/uL Lymph # (Auto) (1.0-4.4) x10-3/uL [place] # (Auto) (0.3-1.0) x10-3/uL Eos # (Auto) (0.0-0.8) x10-3/uL Baso # (Auto) (0.0-0.1) x10-3/uL Sodium (135-145) mmol/L Potassium (3.5-5.3) mmol/L Chloride (100-110) mmol/L Carbon Dioxide (21-32) mmol/L BUN (7-18) mg/dL Creatinine (0.55-1.02) mg/dL Est Cr Clr Drug Dosing mL/min Estimated GFR (MDRD) (>60) BUN/Creatinine Ratio (9-20) Glucose (80-116) mg/dL POC Glucose 221 H (74-100) mg/dL Calcium (8.6-10.2) mg/dL Urine Color Yellow (YELLOW) Urine Appearance Clear (CLEAR) Urine pH 6.5 (5.0-6.5) Ur Specific [place] 1.010 (1.010-1.025) Urine Protein Negative (NEGATIVE) mg/dL Urine Glucose (UA) >1000 H (NORMAL) mg/dL Urine Ketones Negative (NEGATIVE) mg/dL Urine Occult Blood Negative (NEGATIVE) Urine Nitrite Negative (NEGATIVE) Urine Bilirubin Negative (NEGATIVE) Urine Urobilinogen Normal (NEGATIVE) mg/dL Ur Leukocyte Esterase Negative (NEGATIVE) Urine RBC Not seen (0-5) Urine WBC 0-5 (0-5) Ur Squamous Epith Cells Few H (NS,R,O) Urine Bacteria Few H (NS) SARS-CoV-2 RNA (RODNEY) Negative (NEGATIVE) 07/20/20 07/21/20 07/21/20 Range/Units 21:04 06:20 06:20 WBC 6.3 (3.0-10.3) x10-3/uL RBC 3.02 L (3.60-5.20) x10(6)uL Hgb 9.9 L (11.4-15.5) g/dL Hct 29.8 L (34.2-48.2) % MCV 98.8 (76.7-100.5) fL MCH 32.9 (23.9-33.9) pg MCHC 33.3 (31.9-34.8) g/dL RDW 14.9 (12.3-16.5) % Plt Count 266 (151-488) x10(3)uL MPV 9.0 (7.1-12.4) fL Neut % (Auto) 55.9 (30.8-76.2) % Lymph % (Auto) 25.9 (18.4-52.1) % [place] % (Auto) 12.5 (4.4-15.7) % Eos % (Auto) 5.2 (0.6-8.1) % Baso % (Auto) 0.5 (0.2-1.5) % Neut # (Auto) 3.5 (1.5-6.3) x10-3/uL Lymph # (Auto) 1.6 (1.0-4.4) x10-3/uL [place] # (Auto) 0.8 (0.3-1.0) x10-3/uL Eos # (Auto) 0.3 (0.0-0.8) x10-3/uL Baso # (Auto) 0.0 (0.0-0.1) x10-3/uL Sodium 139 (135-145) mmol/L Potassium 3.8 (3.5-5.3) mmol/L Chloride 104 D (100-110) mmol/L Carbon Dioxide 26 (21-32) mmol/L BUN 33 H (7-18) mg/dL Creatinine 1.7 H (0.55-1.02) mg/dL Est Cr Clr Drug Dosing 16.43 mL/min Estimated GFR (MDRD) 28 L (>60) BUN/Creatinine Ratio 19.4 (9-20) Glucose 135 H D (80-116) mg/dL POC Glucose 272 H (74-100) mg/dL Calcium 8.9 (8.6-10.2) mg/dL Urine Color (YELLOW) Urine Appearance (CLEAR) Urine pH (5.0-6.5) Ur Specific [place] (1.010-1.025) Urine Protein (NEGATIVE) mg/dL Urine Glucose (UA) (NORMAL) mg/dL Urine Ketones (NEGATIVE) mg/dL Urine Occult Blood (NEGATIVE) Urine Nitrite (NEGATIVE) Urine Bilirubin (NEGATIVE) Urine Urobilinogen (NEGATIVE) mg/dL Ur Leukocyte Esterase (NEGATIVE) Urine RBC (0-5) Urine WBC (0-5) Ur Squamous Epith Cells (NS,R,O) Urine Bacteria (NS) SARS-CoV-2 RNA (RODNEY) (NEGATIVE) 07/21/20 Range/Units 11:54 WBC (3.0-10.3) x10-3/uL RBC (3.60-5.20) x10(6)uL Hgb (11.4-15.5) g/dL Hct (34.2-48.2) % MCV (76.7-100.5) fL MCH (23.9-33.9) pg MCHC (31.9-34.8) g/dL RDW (12.3-16.5) % Plt Count (151-488) x10(3)uL MPV (7.1-12.4) fL Neut % (Auto) (30.8-76.2) % Lymph % (Auto) (18.4-52.1) % [place] % (Auto) (4.4-15.7) % Eos % (Auto) (0.6-8.1) % Baso % (Auto) (0.2-1.5) % Neut # (Auto) (1.5-6.3) x10-3/uL Lymph # (Auto) (1.0-4.4) x10-3/uL [place] # (Auto) (0.3-1.0) x10-3/uL Eos # (Auto) (0.0-0.8) x10-3/uL Baso # (Auto) (0.0-0.1) x10-3/uL Sodium (135-145) mmol/L Potassium (3.5-5.3) mmol/L Chloride (100-110) mmol/L Carbon Dioxide (21-32) mmol/L BUN (7-18) mg/dL Creatinine (0.55-1.02) mg/dL Est Cr Clr Drug Dosing mL/min Estimated GFR (MDRD) (>60) BUN/Creatinine Ratio (9-20) Glucose (80-116) mg/dL POC Glucose 213 H (74-100) mg/dL Calcium (8.6-10.2) mg/dL Urine Color (YELLOW) Urine Appearance (CLEAR) Urine pH (5.0-6.5) Ur Specific [place] (1.010-1.025) Urine Protein (NEGATIVE) mg/dL Urine Glucose (UA) (NORMAL) mg/dL Urine Ketones (NEGATIVE) mg/dL Urine Occult Blood (NEGATIVE) Urine Nitrite (NEGATIVE) Urine Bilirubin (NEGATIVE) Urine Urobilinogen (NEGATIVE) mg/dL Ur Leukocyte Esterase (NEGATIVE) Urine RBC (0-5) Urine WBC (0-5) Ur Squamous Epith Cells (NS,R,O) Urine Bacteria (NS) SARS-CoV-2 RNA (RODNEY) (NEGATIVE) Result Diagrams: 07/21/20 06:20 07/21/20 06:20 Sepsis Event Note - Evaluation Sepsis Screening Result: No Definite Risk - Focused Exam Vital Signs: Vital Signs Pulse BP 07/21/20 10:12 68 128/70 - Problem List & Annotations (1) Fall SNOMED Code(s): 3939629, 503386907 Code(s): W19.XXXA - UNSPECIFIED FALL, INITIAL ENCOUNTER Status: Acute Current Visit: Yes Onset Date: ~07/17/20 Qualifiers: Encounter type: initial encounter Qualified Code(s): W19.XXXA - Unspecified fall, initial encounter (2) Head injury SNOMED Code(s): 49626298 Code(s): S09.90XA - UNSPECIFIED INJURY OF HEAD, INITIAL ENCOUNTER Status: Acute Current Visit: Yes Onset Date: ~07/17/20 (3) Confusion SNOMED Code(s): 659352904 Code(s): R41.0 - DISORIENTATION, UNSPECIFIED Status: Acute Current Visit: Yes (4) Multi-infarct dementia SNOMED Code(s): 38481525 Code(s): F01.50 - VASCULAR DEMENTIA WITHOUT BEHAVIORAL DISTURBANCE Status: Acute Current Visit: Yes Qualifiers: Dementia behavioral disturbance: without behavioral disturbance Qualified Code(s): F01.50 - Vascular dementia without behavioral disturbance (5) CHF, Congestive heart failure SNOMED Code(s): 29229744 Code(s): I50.9 - HEART FAILURE, UNSPECIFIED Status: Chronic Current Visit: No (6) Chronic a-fib SNOMED Code(s): 026705473 Code(s): I48.20 - CHRONIC ATRIAL FIBRILLATION, UNSPECIFIED Status: Chronic Current Visit: No (7) DM2 (diabetes mellitus, type 2) SNOMED Code(s): 95941968 Code(s): E11.9 - TYPE 2 DIABETES MELLITUS WITHOUT COMPLICATIONS Status: Chronic Current Visit: No Qualifiers: Diabetes mellitus complication status: without complication (8) HTN (hypertension) SNOMED Code(s): 98878926 Code(s): I10 - ESSENTIAL (PRIMARY) HYPERTENSION Status: Chronic Current Visit: No Qualifiers: Hypertension type: essential hypertension Qualified Code(s): I10 - Essential (primary) hypertension (9) Palliative care status SNOMED Code(s): 585517905 Code(s): Z51.5 - ENCOUNTER FOR PALLIATIVE CARE Status: Acute Current Visit: Yes - Problem List Review Problem List Initiated/Reviewed/Updated: Yes - My Orders Last 24 Hours: My Active Orders 07/20/20 16:15 Patient Status [ADT] Routine Oxygen Therapy [RC] PRN Up With Assistance [RC] ASDIRECTED Up to Chair [RC] ASDIRECTED Vital Signs [RC] 08,12,16,20,00,04 Regular Diet [DIET] Sodium Chloride 0.9% [Saline Flush] 10 ml FLUSH ASDIRECTED PRN Saline Lock Insert [OM.PC] Routine Resuscitation Status Routine 07/20/20 16:16 Antiembolic Hose [OM.PC] Per Unit Routine 07/20/20 17:12 Acetaminophen [TylenoL] 650 mg PO Q4H PRN Dextrose 50% in Water 50 ml IVPUSH ASDIRECTED PRN Glucagon,Human Recombinant [GlucaGen] 1 mg IM ASDIRECTED PRN 07/20/20 17:28 polyethylene glycoL 3350 [MiraLAX] 17 gm PO DAILY PRN 07/20/20 18:00 Insulin Lispro [HumaLOG] See Protocol SUBCUT TIDMEALS 07/20/20 18:47 Accu Check [Blood Glucose Check, Bedside] [RC] WITHMEALSANDBED 07/20/20 21:00 Carboxymethylcellulose Sodium [Refresh Tears 0.5%] 0 ml EYEBOTH BID Fluticasone/Salmeterol [Advair Diskus 500-50] 1 puff INH BID Insulin Glarg,Human.Rec.Analog [LantUS Solostar] 18 units SUBCUT BEDTIME Quinapril HCl [Accupril] 10 mg PO BEDTIME 07/21/20 06:00 Levothyroxine 75 mcg PO MOTUWETHFRSA 07/21/20 09:00 Aspirin [Halfprin] 81 mg PO DAILY Cholecalciferol (Vitamin D3) [Vitamin D3] 50 mcg PO DAILY Citalopram [Celexa] 20 mg PO DAILY Ferrous Sulfate 325 mg PO DAILY Furosemide [Lasix] 20 mg PO DAILY Lactobacillus Rhamnosus GG [[employer]] 1 cap PO DAILY Metoprolol Succinate [Toprol XL] 50 mg PO DAILY Multivitamins w-Iron/Ca/FA/Min [Thera M Plus] 1 tab PO DAILY Pantoprazole [ProTONIX] 40 mg PO DAILY allopurinoL [Zyloprim] 100 mg PO DAILY 07/21/20 09:45 Sodium Chloride 0.9% [Normal Saline] 1,000 ml IV ASDIRECTED - Plan Plan:: 1. Multi-infarct dementia: will observe for worsening symptoms, SLUMS test this afternoon. 2. DM: regular diet patient will order foods she knows she tolerates, Medium dose sliding scale, fasting glucose 135 so will not change her Lantus. 3. Dehydration: BUN 33, Cr 1.7, NS at 100 ml/hr for 1 bag, encourage fluid intake, repeat BMP tomorrow. 8. Discharge planning: have not heard back from family yet, most likely will discharge back to [facility] tomorrow.
[2020-07-21] MEDS ORDERED: Insulin Glargine,Human Rec. Analog 100 Units/ML 3 ML Pen SUBCUT ONE (20:34)
[2020-07-21] MEDS: Insulin Glargine,Human Rec. Analog 100 Units/ML 3 ML Pen SUBCUT SCH (21:07)
[2020-07-22] MEDS: Pantoprazole 40 MG Tab.CR PO SCH (07:00)
[2020-07-22] MEDS ORDERED: Lactated Ringers 1,000 ML IV SCH (08:15)
[2020-07-22] MEDS: Insulin Lispro 100 Unit/ML 3 ML KwikPen SUBCUT SCH ×3 (08:23→18:12)
--- NOTE | 2020-07-22 09:08 | PCM.PN ---
- General Info Date of Service: 07/22/20 Subjective Update: Sophie is doing better this morning, up in chair eating romanian toast, did state it was too much food. Denies any nausea this morning. No abdominal pain. Remembers she went fell before she saw her provider but wasn't sure on the day or what today was. 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 She feels stronger today but still feels unsteady walking without assistance, scared of falling again. Remembers that she had home health PT at [facility]. Would like to see the room she is going to there. - Patient Data Vitals - Most Recent: Last Vital Signs Temp 97.0 F 07/21/20 20:00 Pulse 84 07/21/20 20:00 Resp 20 07/21/20 20:00 BP 160/81 H 07/21/20 20:00 Pulse Ox 100 07/21/20 20:00 Weight - Most Recent: 146 lb 4 oz I&O - Last 24 Hours: Intake & Output 07/21/20 07/22/20 07/22/20 22:59 06:59 14:59 Intake Total 1372 240 Output Total 800 500 Balance 572 -260 Lab Results Last 24 Hours: Laboratory Results - last 24 hr 07/21/20 07/21/20 07/21/20 Range/Units 11:54 17:07 20:45 Sodium (135-145) mmol/L Potassium (3.5-5.3) mmol/L Chloride (100-110) mmol/L Carbon Dioxide (21-32) mmol/L BUN (7-18) mg/dL Creatinine (0.55-1.02) mg/dL Est Cr Clr Drug Dosing mL/min Estimated GFR (MDRD) (>60) BUN/Creatinine Ratio (9-20) Glucose (80-116) mg/dL POC Glucose 213 H 235 H 221 H (74-100) mg/dL Calcium (8.6-10.2) mg/dL 07/22/20 Range/Units 06:05 Sodium 139 (135-145) mmol/L Potassium 3.8 (3.5-5.3) mmol/L Chloride 104 (100-110) mmol/L Carbon Dioxide 25 (21-32) mmol/L BUN 28 H (7-18) mg/dL Creatinine 1.7 H (0.55-1.02) mg/dL Est Cr Clr Drug Dosing 16.43 mL/min Estimated GFR (MDRD) 28 L (>60) BUN/Creatinine Ratio 16.5 (9-20) Glucose 131 H (80-116) mg/dL POC Glucose (74-100) mg/dL Calcium 8.9 (8.6-10.2) mg/dL Med Orders - Current: Current Medications Acetaminophen (Acetaminophen 325 Mg Tab) 650 mg PO Q4H PRN PRN Reason: Pain Allopurinol (Allopurinol 100 Mg Tab) 100 mg PO DAILY [facility] Artificial Tears (Carboxymethylcellulose Sodium 0.5% Ophth Soln 15 Ml Bottle) 0 ml EYEBOTH BID [facility] Last Admin: 07/21/20 21:06 Dose: 1 drop Documented by: Aspirin (Aspirin 81 Mg Tab.Ec) 81 mg PO DAILY [facility] Cholecalciferol (Cholecalciferol (Vitamin D3) 25 Mcg Tab) 50 mcg PO DAILY [facility] Citalopram Hydrobromide (Citalopram 20 Mg Tab) 20 mg PO DAILY [facility] Dextrose/Water (50% Dextrose In Water 50 Ml Syringe) 50 ml IVPUSH ASDIRECTED PRN PRN Reason: Hypoglycemia Ferrous Sulfate (Ferrous Sulfate 325 Mg Tab) 325 mg PO DAILY [facility] Last Admin: 07/21/20 09:56 Dose: 325 mg Documented by: Furosemide (Furosemide 20 Mg Tab) 20 mg PO DAILY [facility] Glucagon (Glucagon,Human Recombinant 1 Mg Vial) 1 mg IM ASDIRECTED PRN PRN Reason: Hypoglycemia Lactated Ringer's (Ringers, Lactated) 1,000 mls @ 100 mls/hr IV ASDIRECTED [facility] Stop: 07/22/20 18:14 Insulin Glargine (Insulin Glargine,Human Rec. Analog 100 Units/Ml 3 Ml Pen) 18 units SUBCUT BEDTIME [facility] Last Admin: 07/21/20 21:07 Dose: 18 units Documented by: Insulin Human Lispro (Insulin Lispro 100 Unit/Ml 3 Ml Kwikpen) 0 unit SUBCUT TIDMEALS [facility]; Protocol Last Admin: 07/22/20 08:23 Dose: Not Given Documented by: Lactobacillus Rhamnosus (Lactobacillus Rhamnosus Gg (Probiotic) Cap) 1 cap PO DAILY [facility] Levothyroxine Sodium (Levothyroxine 75 Mcg Tab) 75 mcg PO MoTuWeThFrSa@0600 [facility] Metoprolol Succinate (Metoprolol Succinate 50 Mg Tab.Er) 50 mg PO DAILY [facility] Multivitamins/Minerals (Multivitamins With Iron/Calcium/Folic Acid/Minerals Tab) 1 tab PO DAILY [facility] (Fluticasone/Salmeterol [Advair Diskus 500-50] 14 Puff/Dis *Ptom 1 puff INH BID [facility] Last Admin: 07/21/20 21:06 Dose: 1 puff Documented by: (Quinapril Hcl [ Accupril] 10 Mg Tablet) *Ptom 10 mg PO BEDTIME [facility] Last Admin: 07/21/20 21:06 Dose: 10 mg Documented by: Pantoprazole Sodium (Pantoprazole 40 Mg Tab.Cr) 40 mg PO ACBREAKFAST [facility] Last Admin: 07/22/20 07:00 Dose: 40 mg Documented by: Polyethylene Glycol (Polyethylene Glycol 3350 Powder 17 Gm Packet) 17 gm PO DAILY PRN PRN Reason: Constipation Sodium Chloride (Sodium Chloride 0.9% 10 Ml Syringe) 10 ml FLUSH ASDIRECTED PRN PRN Reason: Keep Vein Open Last Admin: 07/21/20 20:53 Dose: 10 ml Documented by: Discontinued Medications Allopurinol (Allopurinol 100 Mg Tab *Ptom) 100 mg PO DAILY [facility] Last Admin: 07/21/20 09:56 Dose: 100 mg Documented by: Artificial Tears (Carboxymethylcellulose Sodium 0.5% Ophth Soln 15 Ml Bottle) 0 ml EYEBOTH BID [facility] Last Admin: 07/21/20 10:06 Dose: 1 drop Documented by: Aspirin (Aspirin 81 Mg Tab.Ec *Ptom) 81 mg PO DAILY [facility] Last Admin: 07/21/20 09:59 Dose: 81 mg Documented by: Cholecalciferol (Cholecalciferol (Vitamin D3) 25 Mcg Tab *Ptom) 50 mcg PO DAILY [facility] Last Admin: 07/21/20 10:23 Dose: 50 mcg Documented by: Citalopram Hydrobromide (Citalopram 20 Mg Tab *Ptom) 20 mg PO DAILY [facility] Last Admin: 07/21/20 09:56 Dose: 20 mg Documented by: Furosemide (Furosemide 20 Mg Tab *Ptom) 20 mg PO DAILY [facility] Last Admin: 07/21/20 10:02 Dose: Not Given Documented by: Sodium Chloride (Normal Saline) 1,000 mls @ 100 mls/hr IV ASDIRECTED [facility] Stop: 07/21/20 19:44 Last Admin: 07/21/20 10:00 Dose: 100 mls/hr Documented by: Insulin Glargine (Insulin Glargine,Human Rec. Analog 100 Units/Ml 3 Ml Pen *Ptom) 18 units SUBCUT BEDTIME [facility] Last Admin: 07/20/20 21:11 Dose: 18 units Documented by: Insulin Human Lispro (Novolog 100 Unit/Ml 3 Ml Kwikpen *Ptom) 0 unit SUBCUT TIDMEALS [facility]; Protocol Last Admin: 07/21/20 18:06 Dose: 4 units Documented by: Levothyroxine Sodium (Levothyroxine 75 Mcg Tab *Ptom) 75 mcg PO MOTUWETHFRSA [facility] Last Admin: 07/21/20 06:27 Dose: 75 mcg Documented by: Metoprolol Succinate (Metoprolol Succinate 50 Mg Tab.Er *Ptom) 50 mg PO DAILY [facility] Last Admin: 07/21/20 10:12 Dose: 50 mg Documented by: Multivitamins/Minerals (Multivitamins With Iron/Calcium/Folic Acid/Minerals Tab *Ptom) 1 tab PO DAILY [facility] Last Admin: 07/21/20 10:13 Dose: 1 tab Documented by: Lactobacillus Rhamnosus Gg [ [facility]] *Ptom 1 cap PO DAILY [facility] Last Admin: 07/21/20 10:00 Dose: 1 cap Documented by: Pantoprazole Sodium (Pantoprazole 40 Mg Tab.Cr *Ptom) 40 mg PO DAILY [facility] Last Admin: 07/21/20 10:06 Dose: 40 mg Documented by: - Exam General: Alert, Oriented (person, place), Cooperative, No Acute Distress Lungs: Clear to Auscultation, Normal Respiratory Effort Cardiovascular: Regular Rate, Irregular Rhythm GI/Abdominal Exam: Normal Bowel Sounds, Soft, Non-Tender, No Distention Extremities: No Pedal Edema (dermatoliposclerosis BLE) Peripheral Pulses: 2+: Radial (L), Radial (R) - Patient Data Lab Results Last 24 hrs: Laboratory Results - last 24 hr 07/21/20 07/21/20 07/21/20 Range/Units 11:54 17:07 20:45 Sodium (135-145) mmol/L Potassium (3.5-5.3) mmol/L Chloride (100-110) mmol/L Carbon Dioxide (21-32) mmol/L BUN (7-18) mg/dL Creatinine (0.55-1.02) mg/dL Est Cr Clr Drug Dosing mL/min Estimated GFR (MDRD) (>60) BUN/Creatinine Ratio (9-20) Glucose (80-116) mg/dL POC Glucose 213 H 235 H 221 H (74-100) mg/dL Calcium (8.6-10.2) mg/dL 07/22/20 Range/Units 06:05 Sodium 139 (135-145) mmol/L Potassium 3.8 (3.5-5.3) mmol/L Chloride 104 (100-110) mmol/L Carbon Dioxide 25 (21-32) mmol/L BUN 28 H (7-18) mg/dL Creatinine 1.7 H (0.55-1.02) mg/dL Est Cr Clr Drug Dosing 16.43 mL/min Estimated GFR (MDRD) 28 L (>60) BUN/Creatinine Ratio 16.5 (9-20) Glucose 131 H (80-116) mg/dL POC Glucose (74-100) mg/dL Calcium 8.9 (8.6-10.2) mg/dL Result Diagrams: 07/21/20 06:20 07/22/20 06:05 Sepsis Event Note - Evaluation Sepsis Screening Result: No Definite Risk - Problem List & Annotations (1) Dehydration SNOMED Code(s): 13535597 Code(s): E86.0 - DEHYDRATION Status: Acute Current Visit: No Annotation/Comment:: Labs improved today, BUN down to 28, Cr 1.7 stable. (2) Fall SNOMED Code(s): 3494104, 248247375 Code(s): W19.XXXA - UNSPECIFIED FALL, INITIAL ENCOUNTER Status: Acute Cu rrent Visit: Yes Onset Date: ~07/17/20 Qualifiers: Encounter type: initial encounter Qualified Code(s): W19.XXXA - Unspecified fall, initial encounter (3) Head injury SNOMED Code(s): 08121643 Code(s): S09.90XA - UNSPECIFIED INJURY OF HEAD, INITIAL ENCOUNTER Status: Acute Current Visit: Yes Onset Date: ~07/17/20 (4) Confusion SNOMED Code(s): 963885095 Code(s): R41.0 - DISORIENTATION, UNSPECIFIED Status: Acute Current Visit: Yes (5) Multi-infarct dementia SNOMED Code(s): 73793927 Code(s): F01.50 - VASCULAR DEMENTIA WITHOUT BEHAVIORAL DISTURBANCE Status: Acute Current Visit: Yes Qualifiers: Dementia behavioral disturbance: without behavioral disturbance Qualified Code(s): F01.50 - Vascular dementia without behavioral disturbance (6) CHF, Congestive heart failure SNOMED Code(s): 87803311 Code(s): I50.9 - HEART FAILURE, UNSPECIFIED Status: Chronic Current Visit: No (7) Chronic a-fib SNOMED Code(s): 713327113 Code(s): I48.20 - CHRONIC ATRIAL FIBRILLATION, UNSPECIFIED Status: Chronic Current Visit: No (8) DM2 (diabetes mellitus, type 2) SNOMED Code(s): 58304078 Code(s): E11.9 - TYPE 2 DIABETES MELLITUS WITHOUT COMPLICATIONS Status: Chronic Current Visit: No Qualifiers: Diabetes mellitus complication status: without complication (9) HTN (hypertension) SNOMED Code(s): 46888274 Code(s): I10 - ESSENTIAL (PRIMARY) HYPERTENSION Status: Chronic Current Visit: No Qualifiers: Hypertension type: essential hypertension Qualified Code(s): I10 - Essential (primary) hypertension (10) Palliative care status SNOMED Code(s): 181505080 Code(s): Z51.5 - ENCOUNTER FOR PALLIATIVE CARE Status: Acute Current Visit: Yes - Problem List Review Problem List Initiated/Reviewed/Updated: Yes - My Orders Last 24 Hours: My Active Orders 07/21/20 09:00 Ferrous Sulfate 325 mg PO DAILY 07/21/20 18:08 Patient Status [ADT] Routine 07/21/20 21:00 Carboxymethylcellulose Sodium [Refresh Tears 0.5%] 0 ml EYEBOTH BID Insulin Glarg,Human.Rec.Analog [LantUS Solostar] 18 units SUBCUT BEDTIME 07/22/20 07:30 Pantoprazole [ProTONIX] 40 mg PO ACBREAKFAST 07/22/20 08:00 Insulin Lispro [HumaLOG] 0 unit SUBCUT TIDMEALS 07/22/20 08:15 Lactated Ringers [Ringers, Lactated] 1,000 ml IV ASDIRECTED 07/22/20 09:00 Aspirin [Halfprin] 81 mg PO DAILY Cholecalciferol (Vitamin D3) [Vitamin D3] 50 mcg PO DAILY Citalopram [Celexa] 20 mg PO DAILY Lactobacillus Rhamnosus GG [Culturelle] 1 cap PO DAILY Metoprolol Succinate [Toprol XL] 50 mg PO DAILY Multivitamins w-Iron/Ca/FA/Min [Thera M Plus] 1 tab PO DAILY allopurinoL [Zyloprim] 100 mg PO DAILY 07/23/20 06:00 OT Evaluation and Treatment [CONS] Routine PT Evaluation and Treatment [CONS] Routine BASIC METABOLIC PANEL,BMP [CHEM] Routine Levothyroxine 75 mcg PO MoTuWeThFrSa@0600 07/23/20 09:00 Furosemide [Lasix] 20 mg PO DAILY - Plan Plan:: 1. Multi-infarct dementia: SLUMS test was , Dementia 1- for high school education. Form in her physical chart. 2. DM: regular diet patient will order foods she knows she tolerates, Medium dose sliding scale, fasting glucose 135 so will not change her Lantus. 3. Dehydration: BUN 28, Cr 1.7, LR at 100 ml/hr for 1 bag, encourage fluid intake, repeat BMP tomorrow. 8. Discharge planning: moved Sophie to inpatient status yesterday after talking with space planner, PT/OT ordered for tomorrow. Her daughter is having a procedure tomorrow from 8-11am so would be available to speak or met with [facility] staff tomorrow afternoon. Discharge pending what PT/OT recommended as well as [facility] staff on when she could go to Memory care unit. Also discussed with PCP, Romario Donaldson on possibly weekly visits to prevent readmissions.
[2020-07-22] MEDS: Citalopram 20 MG Tab PO SCH (09:20)
[2020-07-22] MEDS: Multivitamins with Iron/Calcium/Folic Acid/Minerals Tab PO SCH (09:21)
[2020-07-22] MEDS: Ferrous Sulfate 325 MG Tab PO SCH (09:21)
[2020-07-22] MEDS: Aspirin 81 MG Tab.EC PO SCH (09:21)
[2020-07-22] MEDS: Lactobacillus Rhamnosus GG (Probiotic) Cap PO SCH (09:21)
[2020-07-22] MEDS: Allopurinol 100 MG Tab PO SCH (09:22)
[2020-07-22] MEDS: Cholecalciferol (Vitamin D3) 25 MCG Tab PO SCH (09:22)
[2020-07-22] MEDS: Metoprolol Succinate 50 MG Tab.ER PO SCH (09:25)
[2020-07-22] MEDS: SALMETEROL INH SCH ×2 (09:27→20:05)
[2020-07-22] MEDS: FLUTICASONE INH SCH ×2 (09:27→20:05)
[2020-07-22] MEDS: DIS INH SCH ×2 (09:27→20:05)
[2020-07-22] MEDS: Carboxymethylcellulose Sodium 0.5% Ophth Soln 15 ML Bottle EYEBOTH SCH ×2 (09:32→20:15)
[2020-07-22] MEDS ORDERED: Insulin Lispro 100 Unit/ML 3 ML KwikPen SUBCUT ONE (12:24)
[2020-07-22] MEDS: Insulin Glargine,Human Rec. Analog 100 Units/ML 3 ML Pen SUBCUT SCH (20:10)
[2020-07-23] MEDS: Levothyroxine 75 MCG Tab PO SCH (06:32)
[2020-07-23] MEDS: Insulin Lispro 100 Unit/ML 3 ML KwikPen SUBCUT SCH ×3 (08:23→17:49)
[2020-07-23] MEDS: Carboxymethylcellulose Sodium 0.5% Ophth Soln 15 ML Bottle EYEBOTH SCH ×2 (08:24→20:42)
[2020-07-23] MEDS: Citalopram 20 MG Tab PO SCH (08:27)
[2020-07-23] MEDS: Lactobacillus Rhamnosus GG (Probiotic) Cap PO SCH (08:27)
[2020-07-23] MEDS: Pantoprazole 40 MG Tab.CR PO SCH (08:27)
[2020-07-23] MEDS: Allopurinol 100 MG Tab PO SCH (08:27)
[2020-07-23] MEDS: Ferrous Sulfate 325 MG Tab PO SCH (08:27)
[2020-07-23] MEDS: Multivitamins with Iron/Calcium/Folic Acid/Minerals Tab PO SCH (08:27)
[2020-07-23] MEDS: Aspirin 81 MG Tab.EC PO SCH (08:27)
[2020-07-23] MEDS: Metoprolol Succinate 50 MG Tab.ER PO SCH (08:28)
[2020-07-23] MEDS: Cholecalciferol (Vitamin D3) 25 MCG Tab PO SCH (08:28)
[2020-07-23] MEDS: Furosemide 20 MG Tab PO SCH (08:28)
[2020-07-23] MEDS: DIS INH SCH ×2 (08:29→20:41)
[2020-07-23] MEDS: FLUTICASONE INH SCH ×2 (08:29→20:41)
[2020-07-23] MEDS: SALMETEROL INH SCH ×2 (08:29→20:41)
--- NOTE | 2020-07-23 11:06 | PCM.PN ---
- General Info Date of Service: 07/23/20 Subjective Update: She had a good night, ate her muffin this morning. No complaint of nausea. No vomiting. Soft stools per patient, thinks she is incontinent of stool sometimes. PT/OT to evaluate today. [facility] can't take her back until tomorrow. Functional Status: Reports: Pain Controlled, Tolerating Diet, Ambulating, Urinating. Denies: New Symptoms - Patient Data Vitals - Most Recent: Last Vital Signs Temp 97.6 F 07/23/20 04:00 Pulse 84 07/23/20 08:28 Resp 20 07/23/20 04:00 BP 147/93 H 07/23/20 08:28 Pulse Ox 99 07/23/20 04:00 Weight - Most Recent: 146 lb 4 oz I&O - Last 24 Hours: Intake & Output 07/22/20 07/23/20 07/23/20 22:59 06:59 14:59 Intake Total 100 Balance 100 Lab Results Last 24 Hours: Laboratory Results - last 24 hr 07/22/20 07/22/20 07/22/20 Range/Units 12:23 17:04 20:08 Sodium (135-145) mmol/L Potassium (3.5-5.3) mmol/L Chloride (100-110) mmol/L Carbon Dioxide (21-32) mmol/L BUN (7-18) mg/dL Creatinine (0.55-1.02) mg/dL Est Cr Clr Drug Dosing mL/min Estimated GFR (MDRD) (>60) BUN/Creatinine Ratio (9-20) Glucose (80-116) mg/dL POC Glucose 273 H 183 H 253 H (74-100) mg/dL Calcium (8.6-10.2) mg/dL 07/23/20 Range/Units 06:25 Sodium 139 (135-145) mmol/L Potassium 3.8 (3.5-5.3) mmol/L Chloride 105 (100-110) mmol/L Carbon Dioxide 25 (21-32) mmol/L BUN 27 H (7-18) mg/dL Creatinine 1.6 H (0.55-1.02) mg/dL Est Cr Clr Drug Dosing 17.46 mL/min Estimated GFR (MDRD) 30 L (>60) BUN/Creatinine Ratio 16.9 (9-20) Glucose 144 H (80-116) mg/dL POC Glucose (74-100) mg/dL Calcium 8.9 (8.6-10.2) mg/dL Med Orders - Current: Current Medications Acetaminophen (Acetaminophen 325 Mg Tab) 650 mg PO Q4H PRN PRN Reason: Pain Allopurinol (Allopurinol 100 Mg Tab) 100 mg PO DAILY [facility] Last Admin: 07/23/20 08:27 Dose: 100 mg Documented by: Artificial Tears (Carboxymethylcellulose Sodium 0.5% Ophth Soln 15 Ml Bottle) 0 ml EYEBOTH BID [facility] Last Admin: 07/23/20 08:24 Dose: 1 drop Documented by: Aspirin (Aspirin 81 Mg Tab.Ec) 81 mg PO DAILY [facility] Last Admin: 07/23/20 08:27 Dose: 81 mg Documented by: Cholecalciferol (Cholecalciferol (Vitamin D3) 25 Mcg Tab) 50 mcg PO DAILY [facility] Last Admin: 07/23/20 08:28 Dose: 50 mcg Documented by: Citalopram Hydrobromide (Citalopram 20 Mg Tab) 20 mg PO DAILY [facility] Last Admin: 07/23/20 08:27 Dose: 20 mg Documented by: Dextrose/Water (50% Dextrose In Water 50 Ml Syringe) 50 ml IVPUSH ASDIRECTED PRN PRN Reason: Hypoglycemia Ferrous Sulfate (Ferrous Sulfate 325 Mg Tab) 325 mg PO DAILY [facility] Last Admin: 07/23/20 08:27 Dose: 325 mg Documented by: Furosemide (Furosemide 20 Mg Tab) 20 mg PO DAILY [facility] Last Admin: 07/23/20 08:28 Dose: 20 mg Documented by: Glucagon (Glucagon,Human Recombinant 1 Mg Vial) 1 mg IM ASDIRECTED PRN PRN Reason: Hypoglycemia Insulin Glargine (Insulin Glargine,Human Rec. Analog 100 Units/Ml 3 Ml Pen) 18 units SUBCUT BEDTIME [facility] Last Admin: 07/22/20 20:10 Dose: 18 units Documented by: Insulin Human Lispro (Insulin Lispro 100 Unit/Ml 3 Ml Kwikpen) 0 unit SUBCUT TIDMEALS [facility]; Protocol Last Admin: 07/23/20 08:23 Dose: Not Given Documented by: Lactobacillus Rhamnosus (Lactobacillus Rhamnosus Gg (Probiotic) Cap) 1 cap PO DAILY [facility] Last Admin: 07/23/20 08:27 Dose: 1 cap Documented by: Levothyroxine Sodium (Levothyroxine 75 Mcg Tab) 75 mcg PO MoTuWeThFrSa@0600 [facility] Last Admin: 07/23/20 06:32 Dose: 75 mcg Documented by: Metoprolol Succinate (Metoprolol Succinate 50 Mg Tab.Er) 50 mg PO DAILY [facility] Last Admin: 07/23/20 08:28 Dose: 50 mg Documented by: Multivitamins/Minerals (Multivitamins With Iron/Calcium/Folic Acid/Minerals Tab) 1 tab PO DAILY [facility] Last Admin: 07/23/20 08:27 Dose: 1 tab Documented by: (Fluticasone/Salmeterol [Advair Diskus 500-50] 14 Puff/Dis *Ptom 1 puff INH BID [facility] Last Admin: 07/23/20 08:29 Dose: 1 puff Documented by: (Quinapril Hcl [ Accupril] 10 Mg Tablet) *Ptom 10 mg PO BEDTIME [facility] Last Admin: 07/22/20 20:25 Dose: 10 mg Documented by: Pantoprazole Sodium (Pantoprazole 40 Mg Tab.Cr) 40 mg PO ACBREAKFAST [facility] Last Admin: 07/23/20 08:27 Dose: 40 mg Documented by: Polyethylene Glycol (Polyethylene Glycol 3350 Powder 17 Gm Packet) 17 gm PO DAILY PRN PRN Reason: Constipation Sodium Chloride (Sodium Chloride 0.9% 10 Ml Syringe) 10 ml FLUSH ASDIRECTED PRN PRN Reason: Keep Vein Open Last Admin: 07/21/20 20:53 Dose: 10 ml Documented by: Discontinued Medications Allopurinol (Allopurinol 100 Mg Tab *Ptom) 100 mg PO DAILY [facility] Last Admin: 07/21/20 09:56 Dose: 100 mg Documented by: Artificial Tears (Carboxymethylcellulose Sodium 0.5% Ophth Soln 15 Ml Bottle) 0 ml EYEBOTH BID [facility] Last Admin: 07/21/20 10:06 Dose: 1 drop Documented by: Aspirin (Aspirin 81 Mg Tab.Ec *Ptom) 81 mg PO DAILY [facility] Last Admin: 07/21/20 09:59 Dose: 81 mg Documented by: Cholecalciferol (Cholecalciferol (Vitamin D3) 25 Mcg Tab *Ptom) 50 mcg PO DAILY [facility] Last Admin: 07/21/20 10:23 Dose: 50 mcg Documented by: Citalopram Hydrobromide (Citalopram 20 Mg Tab *Ptom) 20 mg PO DAILY [facility] Last Admin: 07/21/20 09:56 Dose: 20 mg Documented by: Furosemide (Furosemide 20 Mg Tab *Ptom) 20 mg PO DAILY [facility] Last Admin: 07/21/20 10:02 Dose: Not Given Documented by: Sodium Chloride (Normal Saline) 1,000 mls @ 100 mls/hr IV ASDIRECTED [facility] Stop: 07/21/20 19:44 Last Admin: 07/21/20 10:00 Dose: 100 mls/hr Documented by: Lactated Ringer's (Ringers, Lactated) 1,000 mls @ 100 mls/hr IV ASDIRECTED [facility] Stop: 07/22/20 18:14 Last Admin: 07/22/20 09:29 Dose: 100 mls/hr Documented by: Insulin Glargine (Insulin Glargine,Human Rec. Analog 100 Units/Ml 3 Ml Pen *Ptom) 18 units SUBCUT BEDTIME [facility] Last Admin: 07/20/20 21:11 Dose: 18 units Documented by: Insulin Human Lispro (Novolog 100 Unit/Ml 3 Ml Kwikpen *Ptom) 0 unit SUBCUT TIDMEALS [facility]; Protocol Last Admin: 07/21/20 18:06 Dose: 4 units Documented by: Levothyroxine Sodium (Levothyroxine 75 Mcg Tab *Ptom) 75 mcg PO MOTUWETHFRSA [facility] Last Admin: 07/21/20 06:27 Dose: 75 mcg Documented by: Metoprolol Succinate (Metoprolol Succinate 50 Mg Tab.Er *Ptom) 50 mg PO DAILY [facility] Last Admin: 07/21/20 10:12 Dose: 50 mg Documented by: Multivitamins/Minerals (Multivitamins With Iron/Calcium/Folic Acid/Minerals Tab *Ptom) 1 tab PO DAILY [facility] Last Admin: 07/21/20 10:13 Dose: 1 tab Documented by: Lactobacillus Rhamnosus Gg [ [facility]] *Ptom 1 cap PO DAILY [facility] Last Admin: 07/21/20 10:00 Dose: 1 cap Documented by: Pantoprazole Sodium (Pantoprazole 40 Mg Tab.Cr *Ptom) 40 mg PO DAILY [facility] Last Admin: 07/21/20 10:06 Dose: 40 mg Documented by: - Exam General: Alert, Oriented (person, place), Cooperative, No Acute Distress Lungs: Clear to Auscultation, Normal Respiratory Effort, Decreased Breath Sounds (bibasilar) Cardiovascular: Regular Rate, Irregular Rhythm GI/Abdominal Exam: Normal Bowel Sounds, Soft, No Distention, Guarding, Tender (mild TTP in epigastrium) Extremities: No Pedal Edema (dermatoliposclerosis BLE) - Patient Data Lab Results Last 24 hrs: Laboratory Results - last 24 hr 07/22/20 07/22/20 07/22/20 Range/Units 12:23 17:04 20:08 Sodium (135-145) mmol/L Potassium (3.5-5.3) mmol/L Chloride (100-110) mmol/L Carbon Dioxide (21-32) mmol/L BUN (7-18) mg/dL Creatinine (0.55-1.02) mg/dL Est Cr Clr Drug Dosing mL/min Estimated GFR (MDRD) (>60) BUN/Creatinine Ratio (9-20) Glucose (80-116) mg/dL POC Glucose 273 H 183 H 253 H (74-100) mg/dL Calcium (8.6-10.2) mg/dL 07/23/20 Range/Units 06:25 Sodium 139 (135-145) mmol/L Potassium 3.8 (3.5-5.3) mmol/L Chloride 105 (100-110) mmol/L Carbon Dioxide 25 (21-32) mmol/L BUN 27 H (7-18) mg/dL Creatinine 1.6 H (0.55-1.02) mg/dL Est Cr Clr Drug Dosing 17.46 mL/min Estimated GFR (MDRD) 30 L (>60) BUN/Creatinine Ratio 16.9 (9-20) Glucose 144 H (80-116) mg/dL POC Glucose (74-100) mg/dL Calcium 8.9 (8.6-10.2) mg/dL Result Diagrams: 07/21/20 06:20 07/23/20 06:25 Sepsis Event Note - Evaluation Sepsis Screening Result: No Definite Risk - Focused Exam Vital Signs: Vital Signs Temp Pulse Pulse Resp BP BP Pulse Ox 07/23/20 08:28 84 147/93 H 07/23/20 04:00 97.6 F 80 20 134/72 99 07/23/20 00:00 97.9 F 78 20 137/72 100 - Problem List & Annotations (1) Dehydration SNOMED Code(s): 04748730 Code(s): E86.0 - DEHYDRATION Status: Resolved Current Visit: No Annotation/Comment:: Labs improved, BUN down to 27, Cr 1.6 improved, at her baseline. (2) Fall SNOMED Code(s): 9548750, 279224304 Code(s): W19.XXXA - UNSPECIFIED FALL, INITIAL ENCOUNTER Status: Acute Current Visit: Yes Onset Date: ~07/17/20 Qualifiers: Encounter type: initial encounter Qualified Code(s): W19.XXXA - Unspecified fall, initial encounter (3) Head injury SNOMED Code(s): 19505031 Code(s): S09.90XA - UNSPECIFIED INJURY OF HEAD, INITIAL ENCOUNTER Status: Acute Current Visit: Yes Onset Date: ~07/17/20 (4) Confusion SNOMED Code(s): 809531462 Code(s): R41.0 - DISORIENTATION, UNSPECIFIED Status: Acute Current Visit: Yes (5) Multi-infarct dementia SNOMED Code(s): 20324710 Code(s): F01.50 - VASCULAR DEMENTIA WITHOUT BEHAVIORAL DISTURBANCE Status: Acute Current Visit: Yes Qualifiers: Dementia behavioral disturbance: without behavioral disturbance Qualified Code(s): F01.50 - Vascular dementia without behavioral disturbance (6) CHF, Congestive heart failure SNOMED Code(s): 36116332 Code(s): I50.9 - HEART FAILURE, UNSPECIFIED Status: Chronic Current Visit: No (7) Chronic a-fib SNOMED Code(s): 490432866 Code(s): I48.20 - CHRONIC ATRIAL FIBRILLATION, UNSPECIFIED Status: Chronic Current Visit: No (8) DM2 (diabetes mellitus, type 2) SNOMED Code(s): 76299175 Code(s): E11.9 - TYPE 2 DIABETES MELLITUS WITHOUT COMPLICATIONS Status: Chronic Current Visit: No Qualifiers: Diabetes mellitus complication status: without complication (9) HTN (hypertension) SNOMED Code(s): 63117887 Code(s): I10 - ESSENTIAL (PRIMARY) HYPERTENSION Status: Chronic Current Visit: No Qualifiers: Hypertension type: essential hypertension Qualified Code(s): I10 - Essential (primary) hypertension (10) Palliative care status SNOMED Code(s): 032133213 Code(s): Z51.5 - ENCOUNTER FOR PALLIATIVE CARE Status: Acute Current Visit: Yes - Problem List Review Problem List Initiated/Reviewed/Updated: Yes - My Orders Last 24 Hours: My Active Orders 07/23/20 06:00 OT Evaluation and Treatment [CONS] Routine PT Evaluation and Treatment [CONS] Routine Levothyroxine 75 mcg PO MoTuWeThSa@0600 07/23/20 09:00 Furosemide [Lasix] 20 mg PO DAILY - Plan Plan:: 1. Multi-infarct dementia: SLUMS test was , Dementia 1- for high school education. Form in her physical chart. 2. DM: regular diet patient will order foods she knows she tolerates, Medium dose sliding scale, required 8 units yesterday, fasting glucose 144 no change to her Lantus. 3. Dehydration: BUN 27, Cr 1.6, saline lock. 4. Discharge planning: PT/OT ordered for today for her fall/balance. [facility] can accept back tomorrow so will keep today, get therapy. Discharge tomorrow.
[2020-07-23] MEDS ORDERED: Fluconazole 100 MG Tab PO ONE (16:00)
[2020-07-23] MEDS: Insulin Glargine,Human Rec. Analog 100 Units/ML 3 ML Pen SUBCUT SCH (20:48)
[2020-07-24] MEDS: Pantoprazole 40 MG Tab.CR PO SCH ×2 (06:16→08:31)
[2020-07-24] MEDS: Insulin Lispro 100 Unit/ML 3 ML KwikPen SUBCUT SCH ×3 (08:27→17:54)
[2020-07-24] MEDS: DIS INH SCH ×2 (08:29→20:51)
[2020-07-24] MEDS: FLUTICASONE INH SCH ×2 (08:29→20:51)
[2020-07-24] MEDS: SALMETEROL INH SCH ×2 (08:29→20:51)
[2020-07-24] MEDS: Multivitamins with Iron/Calcium/Folic Acid/Minerals Tab PO SCH (08:30)
[2020-07-24] MEDS: Citalopram 10 MG Tab PO SCH (08:30)
[2020-07-24] MEDS: Aspirin 81 MG Tab.EC PO SCH (08:31)
[2020-07-24] MEDS: Cholecalciferol (Vitamin D3) 25 MCG Tab PO SCH (08:31)
[2020-07-24] MEDS: Furosemide 20 MG Tab PO SCH (08:31)
[2020-07-24] MEDS: Allopurinol 100 MG Tab PO SCH (08:32)
[2020-07-24] MEDS: Carboxymethylcellulose Sodium 0.5% Ophth Soln 15 ML Bottle EYEBOTH SCH ×2 (08:32→20:53)
[2020-07-24] MEDS: Metoprolol Succinate 50 MG Tab.ER PO SCH (08:32)
[2020-07-24] MEDS: Ferrous Sulfate 325 MG Tab PO SCH (08:32)
[2020-07-24] MEDS: Levothyroxine 75 MCG Tab PO SCH (08:33)
[2020-07-24] MEDS: Lactobacillus Rhamnosus GG (Probiotic) Cap PO SCH (08:33)
--- NOTE | 2020-07-24 10:34 | PCM.PN ---
- General Info Date of Service: 07/24/20 Subjective Update: Romario Donaldson PA-C called yesterday afternoon to inform me that her pathology report from her EGD on 07/18 came back as candidal esophagitis. Consulted with pharmacy, started Fluconazole 400 mg loading dose given, reduced her dose of Celexa as they can cause QT prolongation as well as stagger the dosing so the Celexa will be given in the am and Fluconazole in afternoon. She will get Fluconazole 100 mg daily for 3 weeks. She is in atrial fibrillation so could not calculate QT on the tip tester so discontinued and doing serial EKGs every 8 hours, so far her QTc has been 454, 474, 371. She states she is feeling fine, occasional nausea. Eating okay, ate 90% of her breakfast this morning. Her family is moving her things into Memory care today. - Patient Data Vitals - Most Recent: Last Vital Signs Temp 97.7 F 07/24/20 07:20 Pulse 78 07/24/20 08:32 Resp 18 07/24/20 07:20 BP 153/47 H 07/24/20 08:32 Pulse Ox 100 07/24/20 07:20 Weight - Most Recent: 146 lb 4 oz I&O - Last 24 Hours: Intake & Output 07/23/20 07/24/20 07/24/20 22:59 06:59 14:59 Intake Total 200 Balance 200 Lab Results Last 24 Hours: Laboratory Results - last 24 hr 07/23/20 07/23/20 07/23/20 Range/Units 11:23 17:22 20:45 Sodium (135-145) mmol/L Potassium (3.5-5.3) mmol/L Chloride (100-110) mmol/L Carbon Dioxide (21-32) mmol/L BUN (7-18) mg/dL Creatinine (0.55-1.02) mg/dL Est Cr Clr Drug Dosing mL/min Estimated GFR (MDRD) (>60) BUN/Creatinine Ratio (9-20) Glucose (80-116) mg/dL POC Glucose 233 H 348 H 204 H (74-100) mg/dL Calcium (8.6-10.2) mg/dL Total Bilirubin (0.1-1.3) mg/dL AST (5-25) IU/L ALT (12-36) U/L Alkaline Phosphatase (56-112) IU/L Total Protein (6.0-8.0) g/dL Albumin (3.2-4.6) g/dL Globulin g/dL Albumin/Globulin Ratio 07/24/20 07/24/20 Range/Units 06:14 08:25 Sodium 139 (135-145) mmol/L Potassium 3.8 (3.5-5.3) mmol/L Chloride 101 (100-110) mmol/L Carbon Dioxide 27 (21-32) mmol/L BUN 19 H (7-18) mg/dL Creatinine 1.6 H (0.55-1.02) mg/dL Est Cr Clr Drug Dosing 17.46 mL/min Estimated GFR (MDRD) 30 L (>60) BUN/Creatinine Ratio 11.9 (9-20) Glucose 163 H (80-116) mg/dL POC Glucose 163 H (74-100) mg/dL Calcium 8.8 (8.6-10.2) mg/dL Total Bilirubin 0.5 (0.1-1.3) mg/dL AST 19 D (5-25) IU/L ALT 17 D (12-36) U/L Alkaline Phosphatase 136 H (56-112) IU/L Total Protein 6.5 (6.0-8.0) g/dL Albumin 2.9 L (3.2-4.6) g/dL Globulin 3.6 g/dL Albumin/Globulin Ratio 0.8 Med Orders - Current: Current Medications Acetaminophen (Acetaminophen 325 Mg Tab) 650 mg PO Q4H PRN PRN Reason: Pain Allopurinol (Allopurinol 100 Mg Tab) 100 mg PO DAILY ON LICENSE OF [facility] Last Admin: 07/24/20 08:32 Dose: 100 mg Documented by: Artificial Tears (Carboxymethylcellulose Sodium 0.5% Ophth Soln 15 Ml Bottle) 0 ml EYEBOTH BID ON LICENSE OF [facility] Last Admin: 07/24/20 08:32 Dose: 1 drop Documented by: Aspirin (Aspirin 81 Mg Tab.Ec) 81 mg PO DAILY ON LICENSE OF [facility] Last Admin: 07/24/20 08:31 Dose: 81 mg Documented by: Cholecalciferol (Cholecalciferol (Vitamin D3) 25 Mcg Tab) 50 mcg PO DAILY ON LICENSE OF [facility] Last Admin: 07/24/20 08:31 Dose: 50 mcg Documented by: Citalopram Hydrobromide (Citalopram 10 Mg Tab) 10 mg PO DAILY ON LICENSE OF [facility] Last Admin: 07/24/20 08:30 Dose: 10 mg Documented by: Dextrose/Water (50% Dextrose In Water 50 Ml Syringe) 50 ml IVPUSH ASDIRECTED PRN PRN Reason: Hypoglycemia Ferrous Sulfate (Ferrous Sulfate 325 Mg Tab) 325 mg PO DAILY ON LICENSE OF [facility] Last Admin: 07/24/20 08:32 Dose: 325 mg Documented by: Fluconazole (Fluconazole 100 Mg Tab) 100 mg PO DAILY@1600 ON LICENSE OF [facility] Furosemide (Furosemide 20 Mg Tab) 20 mg PO DAILY ON LICENSE OF [facility] Last Admin: 07/24/20 08:31 Dose: 20 mg Documented by: Glucagon (Glucagon,Human Recombinant 1 Mg Vial) 1 mg IM ASDIRECTED PRN PRN Reason: Hypoglycemia Insulin Glargine (Insulin Glargine,Human Rec. Analog 100 Units/Ml 3 Ml Pen) 18 units SUBCUT BEDTIME ON LICENSE OF [facility] Last Admin: 07/23/20 20:48 Dose: 18 units Documented by: Insulin Human Lispro (Insulin Lispro 100 Unit/Ml 3 Ml Kwikpen) 0 unit SUBCUT TIDMEALS ON LICENSE OF [facility]; Protocol Last Admin: 07/24/20 08:27 Dose: 2 units Documented by: Lactobacillus Rhamnosus (Lactobacillus Rhamnosus Gg (Probiotic) Cap) 1 cap PO DAILY ON LICENSE OF [facility] Last Admin: 07/24/20 08:33 Dose: 1 cap Documented by: Levothyroxine Sodium (Levothyroxine 75 Mcg Tab) 75 mcg PO MoTuWeThFrSa@0600 ON LICENSE OF [facility] Last Admin: 07/24/20 08:33 Dose: 75 mcg Documented by: Metoprolol Succinate (Metoprolol Succinate 50 Mg Tab.Er) 50 mg PO DAILY ON LICENSE OF [facility] Last Admin: 07/24/20 08:32 Dose: 50 mg Documented by: Multivitamins/Minerals (Multivitamins With Iron/Calcium/Folic Acid/Minerals Tab) 1 tab PO DAILY ON LICENSE OF [facility] Last Admin: 07/24/20 08:30 Dose: 1 tab Documented by: (Fluticasone/Salmeterol [Advair Diskus 500-50] 14 Puff/Dis *Ptom 1 puff INH BID ON LICENSE OF [facility] Last Admin: 07/24/20 08:29 Dose: 1 puff Documented by: (Quinapril Hcl [ Accupril] 10 Mg Tablet) *Ptom 10 mg PO BEDTIME ON LICENSE OF [facility] Last Admin: 07/23/20 20:42 Dose: 10 mg Documented by: Pantoprazole Sodium (Pantoprazole 40 Mg Tab.Cr) 40 mg PO ACBREAKFAST ON LICENSE OF [facility] Last Admin: 07/24/20 08:31 Dose: 40 mg Documented by: Polyethylene Glycol (Polyethylene Glycol 3350 Powder 17 Gm Packet) 17 gm PO DAILY PRN PRN Reason: Constipation Sodium Chloride (Sodium Chloride 0.9% 10 Ml Syringe) 10 ml FLUSH ASDIRECTED PRN PRN Reason: Keep Vein Open Last Admin: 07/21/20 20:53 Dose: 10 ml Documented by: Discontinued Medications Allopurinol (Allopurinol 100 Mg Tab *Ptom) 100 mg PO DAILY ON LICENSE OF [facility] Last Admin: 07/21/20 09:56 Dose: 100 mg Documented by: Artificial Tears (Carboxymethylcellulose Sodium 0.5% Ophth Soln 15 Ml Bottle) 0 ml EYEBOTH BID ON LICENSE OF [facility] Last Admin: 07/21/20 10:06 Dose: 1 drop Documented by: Aspirin (Aspirin 81 Mg Tab.Ec *Ptom) 81 mg PO DAILY ON LICENSE OF [facility] Last Admin: 07/21/20 09:59 Dose: 81 mg Documented by: Cholecalciferol (Cholecalciferol (Vitamin D3) 25 Mcg Tab *Ptom) 50 mcg PO DAILY ON LICENSE OF [facility] Last Admin: 07/21/20 10:23 Dose: 50 mcg Documented by: Citalopram Hydrobromide (Citalopram 20 Mg Tab *Ptom) 20 mg PO DAILY ON LICENSE OF [facility] Last Admin: 07/21/20 09:56 Dose: 20 mg Documented by: Citalopram Hydrobromide (Citalopram 20 Mg Tab) 20 mg PO DAILY ON LICENSE OF [facility] Last Admin: 07/23/20 08:27 Dose: 20 mg Documented by: Fluconazole (Fluconazole 100 Mg Tab) 400 mg PO ONETIME ONE Stop: 07/23/20 16:01 Last Admin: 07/23/20 16:23 Dose: 400 mg Documented by: Furosemide (Furosemide 20 Mg Tab *Ptom) 20 mg PO DAILY ON LICENSE OF [facility] Last Admin: 07/21/20 10:02 Dose: Not Given Documented by: Sodium Chloride (Normal Saline) 1,000 mls @ 100 mls/hr IV ASDIRECTED ON LICENSE OF [facility] Stop: 07/21/20 19:44 Last Admin: 07/21/20 10:00 Dose: 100 mls/hr Documented by: Lactated Ringer's (Ringers, Lactated) 1,000 mls @ 100 mls/hr IV ASDIRECTED ON LICENSE OF [facility] Stop: 07/22/20 18:14 Last Admin: 07/22/20 09:29 Dose: 100 mls/hr Documented by: Insulin Glargine (Insulin Glargine,Human Rec. Analog 100 Units/Ml 3 Ml Pen *Ptom) 18 units SUBCUT BEDTIME ON LICENSE OF [facility] Last Admin: 07/20/20 21:11 Dose: 18 units Documented by: Insulin Human Lispro (Novolog 100 Unit/Ml 3 Ml Kwikpen *Ptom) 0 unit SUBCUT TIDMEALS ON LICENSE OF [facility]; Protocol Last Admin: 07/21/20 18:06 Dose: 4 units Documented by: Levothyroxine Sodium (Levothyroxine 75 Mcg Tab *Ptom) 75 mcg PO MOTUWETHFRSA ON LICENSE OF [facility] Last Admin: 07/21/20 06:27 Dose: 75 mcg Documented by: Metoprolol Succinate (Metoprolol Succinate 50 Mg Tab.Er *Ptom) 50 mg PO DAILY ON LICENSE OF [facility] Last Admin: 07/21/20 10:12 Dose: 50 mg Documented by: Multivitamins/Minerals (Multivitamins With Iron/Calcium/Folic Acid/Minerals Tab *Ptom) 1 tab PO DAILY ON LICENSE OF [facility] Last Admin: 07/21/20 10:13 Dose: 1 tab Documented by: Lactobacillus Rhamnosus Gg [ [facility]] *Ptom 1 cap PO DAILY ON LICENSE OF [facility] Last Admin: 07/21/20 10:00 Dose: 1 cap Documented by: Pantoprazole Sodium (Pantoprazole 40 Mg Tab.Cr *Ptom) 40 mg PO DAILY ON LICENSE OF [facility] Last Admin: 07/21/20 10:06 Dose: 40 mg Documented by: - Exam General: Alert, Oriented (person), Cooperative, No Acute Distress Lungs: Clear to Auscultation, Normal Respiratory Effort Cardiovascular: Regular Rate, Irregular Rhythm GI/Abdominal Exam: Normal Bowel Sounds, Soft, No Distention, Guarding, Tender (diffuse, mild TTP) Peripheral Pulses: 2+: Radial (L), Radial (R) - Patient Data Lab Results Last 24 hrs: Laboratory Results - last 24 hr 07/23/20 07/23/20 07/23/20 Range/Units 11:23 17:22 20:45 Sodium (135-145) mmol/L Potassium (3.5-5.3) mmol/L Chloride (100-110) mmol/L Carbon Dioxide (21-32) mmol/L BUN (7-18) mg/dL Creatinine (0.55-1.02) mg/dL Est Cr Clr Drug Dosing mL/min Estimated GFR (MDRD) (>60) BUN/Creatinine Ratio (9-20) Glucose (80-116) mg/dL POC Glucose 233 H 348 H 204 H (74-100) mg/dL Calcium (8.6-10.2) mg/dL Total Bilirubin (0.1-1.3) mg/dL AST (5-25) IU/L ALT (12-36) U/L Alkaline Phosphatase (56-112) IU/L Total Protein (6.0-8.0) g/dL Albumin (3.2-4.6) g/dL Globulin g/dL Albumin/Globulin Ratio 07/24/20 07/24/20 Range/Units 06:14 08:25 Sodium 139 (135-145) mmol/L Potassium 3.8 (3.5-5.3) mmol/L Chloride 101 (100-110) mmol/L Carbon Dioxide 27 (21-32) mmol/L BUN 19 H (7-18) mg/dL Creatinine 1.6 H (0.55-1.02) mg/dL Est Cr Clr Drug Dosing 17.46 mL/min Estimated GFR (MDRD) 30 L (>60) BUN/Creatinine Ratio 11.9 (9-20) Glucose 163 H (80-116) mg/dL POC Glucose 163 H (74-100) mg/dL Calcium 8.8 (8.6-10.2) mg/dL Total Bilirubin 0.5 (0.1-1.3) mg/dL AST 19 D (5-25) IU/L ALT 17 D (12-36) U/L Alkaline Phosphatase 136 H (56-112) IU/L Total Protein 6.5 (6.0-8.0) g/dL Albumin 2.9 L (3.2-4.6) g/dL Globulin 3.6 g/dL Albumin/Globulin Ratio 0.8 Result Diagrams: 07/21/20 06:20 07/24/20 08:25 Sepsis Event Note - Evaluation Sepsis Screening Result: No Definite Risk - Focused Exam Vital Signs: Vital Signs Temp Pulse Pulse Resp BP BP Pulse Ox 07/24/20 08:32 78 153/47 H 07/24/20 07:20 97.7 F 78 18 153/47 H 100 07/24/20 04:00 98.1 F 79 20 144/70 H 98 07/24/20 00:00 97.6 F 87 20 150/67 H 100 - Problem List & Annotations (1) Candidal esophagitis SNOMED Code(s): 37247563 Code(s): B37.81 - CANDIDAL ESOPHAGITIS Status: Acute Current Visit: Yes Onset Date: ~07/18/20 Annotation/Comment:: EGD pathology report came back yesterday to her primary provider as candidal esophagitis. Fluconazole 400 mg loading dose, 100 mg daily, will need 3 week course. Celexa decreased to 10 mg daily, fluconazole will be given at 1600 to help reduce any interactions with Celexa. (2) Dehydration SNOMED Code(s): 76620372 Code(s): E86.0 - DEHYDRATION Status: Resolved Current Visit: No Annotation/Comment:: Labs improved, BUN down to 19, Cr 1.6 stable, at her baseline. (3) Fall SNOMED Code(s): 7543352, 893097850 Code(s): W19.XXXA - UNSPECIFIED FALL, INITIAL ENCOUNTER Status: Acute Current Visit: Yes Onset Date: ~07/17/20 Qualifiers: Encounter type: initial encounter Qualified Code(s): W19.XXXA - Unspecified fall, initial encounter (4) Head injury SNOMED Code(s): 79301199 Code(s): S09.90XA - UNSPECIFIED INJURY OF HEAD, INITIAL ENCOUNTER Status: Acute Current Visit: Yes Onset Date: ~07/17/20 (5) Confusion SNOMED Code(s): 928242879 Code(s): R41.0 - DISORIENTATION, UNSPECIFIED Status: Resolved Current Visit: Yes (6) Multi-infarct dementia SNOMED Code(s): 36759513 Code(s): F01.50 - VASCULAR DEMENTIA WITHOUT BEHAVIORAL DISTURBANCE Status: Acute Current Visit: Yes Qualifiers: Dementia behavioral disturbance: without behavioral disturbance Qualified Code(s): F01.50 - Vascular dementia without behavioral disturbance (7) CHF, Congestive heart failure SNOMED Code(s): 33986527 Code(s): I50.9 - HEART FAILURE, UNSPECIFIED Status: Chronic Current Visit: No (8) Chronic a-fib SNOMED Code(s): 247913482 Code(s): I48.20 - CHRONIC ATRIAL FIBRILLATION, UNSPECIFIED Status: Chronic Current Visit: No (9) DM2 (diabetes mellitus, type 2) SNOMED Code(s): 00057314 Code(s): E11.9 - TYPE 2 DIABETES MELLITUS WITHOUT COMPLICATIONS Status: Chronic Current Visit: No Qualifiers: Diabetes mellitus complication status: without complication (10) HTN (hypertension) SNOMED Code(s): 64627035 Code(s): I10 - ESSENTIAL (PRIMARY) HYPERTENSION Status: Chronic Current Visit: No Qualifiers: Hypertension type: essential hypertension Qualified Code(s): I10 - Essential (primary) hypertension (11) Palliative care status SNOMED Code(s): 552904854 Code(s): Z51.5 - ENCOUNTER FOR PALLIATIVE CARE Status: Chronic Current Visit: Yes - Problem List Review Problem List Initiated/Reviewed/Updated: Yes - My Orders Last 24 Hours: My Active Orders 07/23/20 16:57 EKG 12 Lead [EK] Q8H 07/23/20 16:58 EKG Documentation Completion [RC] 17,,07/24/20 00:57 EKG 12 Lead [EK] Q8H 07/24/20 08:57 EKG 12 Lead [EK] Q8H 07/24/20 09:00 Citalopram [Celexa] 10 mg PO DAILY 07/24/20 16:00 Fluconazole [Diflucan] 100 mg PO DAILY@1600 07/24/20 16:57 EKG 12 Lead [EK] Q8H 07/25/20 00:57 EKG 12 Lead [EK] Q8H 07/25/20 06:00 COMPREHENSIVE METABOLIC PN,CMP [CHEM] Routine 07/25/20 08:57 EKG 12 Lead [EK] Q8H - Plan Plan:: 1. Candidal esophagitis: Fluconazole 400 mg loading dose yesterday, will have 100 mg dose today, will need to complete 3 week course. So far her QT is not prolonged with Celexa 10 mg in morning and Fluconazole. CMP was improved today. 2. DM: regular diet patient will order foods she knows she tolerates, Medium dose sliding scale, required 8 units yesterday, fasting glucose 163 3. Dehydration: resolved, BUN 19, Cr 1.6, saline lock. 4. Discharge planning: plan to discharge tomorrow afternoon, family will be picking after 1300. Will have 36 hours of monitoring her QT interval with addition of the fluconazole, if she continues to be within normal range will discharge with Celexa 10 mg daily in morning and Fluconazole 100 mg daily at 1600. She will have weekly follow ups with her primary while she is on the Fluconazole.
[2020-07-24] MEDS ORDERED: Fluconazole 100 MG Tab PO SCH (16:00)
[2020-07-24] MEDS: Insulin Glargine,Human Rec. Analog 100 Units/ML 3 ML Pen SUBCUT SCH (20:52)
[2020-07-25] MEDS: Pantoprazole 40 MG Tab.CR PO SCH (06:36)
[2020-07-25] MEDS: Levothyroxine 75 MCG Tab PO SCH (06:36)
[2020-07-25] MEDS: Insulin Lispro 100 Unit/ML 3 ML KwikPen SUBCUT SCH ×2 (07:25→12:25)
[2020-07-25] MEDS: Cholecalciferol (Vitamin D3) 25 MCG Tab PO SCH (10:58)
[2020-07-25] MEDS: Lactobacillus Rhamnosus GG (Probiotic) Cap PO SCH (10:58)
[2020-07-25] MEDS: Allopurinol 100 MG Tab PO SCH (10:59)
[2020-07-25] MEDS: Furosemide 20 MG Tab PO SCH (10:59)
[2020-07-25] MEDS: Multivitamins with Iron/Calcium/Folic Acid/Minerals Tab PO SCH (10:59)
[2020-07-25] MEDS: Ferrous Sulfate 325 MG Tab PO SCH (10:59)
[2020-07-25] MEDS: Aspirin 81 MG Tab.EC PO SCH (11:00)
[2020-07-25] MEDS: Citalopram 10 MG Tab PO SCH (11:06)
[2020-07-25] MEDS: Metoprolol Succinate 50 MG Tab.ER PO SCH (11:07)
[2020-07-25] MEDS: SALMETEROL INH SCH (11:08)
[2020-07-25] MEDS: DIS INH SCH (11:08)
[2020-07-25] MEDS: FLUTICASONE INH SCH (11:08)
[2020-07-25] MEDS: Carboxymethylcellulose Sodium 0.5% Ophth Soln 15 ML Bottle EYEBOTH SCH (11:09)
--- NOTE | 2020-07-25 12:37 | PCM.DCSUM1 ---
Discharge Summary - Hospital Course HPI Initial Comments: Sophie was seen in [facility] today for follow up of EGD results from Thursday, the cultures and pathology are not back at time of note. While she was there, she was exhibiting confused behaviors, talking about doing things with her who has been for few years, also having visual hallucinations with provider and her daughter. She had sustained a fall at her apartment on Thursday, was reaching for water bottle on the floor and fell hitting her face against corner of table per patient. She states she did not lose consciousness. She has some neck pain when touched, denies difficulty moving it. She has been having tremors which were more pronounced in the clinic than usual. She reports she has had them since her strokes. Her Chemistry and CBC in the clinic were unremarkable, they had not been able to get UA there. Direct admission for increased confusion, visual hallucinations, fall. She also was having increased tremors in the clinic and once arrived here. Diagnosis: Stroke: No - Discharge Data Discharge Date: 07/25/20 ([facility]) Discharge Disposition: Home, W Home Health Agency 06 Condition: Good - Referral to Home Health Date of Face to Face Encounter: 07/25/20 Reason for Homebound Status: [facility] Primary Care Physician: Gaurav Robles MD Skilled Need: PT, OT, fdc for assessment, education, medication management. - Discharge Diagnosis/Problem(s) (1) Candidal esophagitis SNOMED Code(s): 84722992 ICD Code: B37.81 - CANDIDAL ESOPHAGITIS Status: Acute Current Visit: Yes Onset Date: ~07/18/20 Problem Details: EGD pathology report came back 07/23 to her primary provider as candidal esophagitis. Fluconazole 400 mg loading dose, 100 mg daily, will need 3 week course. Celexa decreased to 10 mg daily, fluconazole will be given at 1600 to help reduce any interactions with Celexa. (2) Dehydration SNOMED Code(s): 86747996 ICD Code: E86.0 - DEHYDRATION Status: Chronic Current Visit: No Problem Details: Labs have creeped back up, BUN from 19 to 25 & Cr 1.6 up to 1.8. Encourage fluids, caffeine free sodas. Follow up with PCP on Thursday. (3) Fall SNOMED Code(s): 5059071, 026949448 ICD Code: W19.XXXA - UNSPECIFIED FALL, INITIAL ENCOUNTER Status: Acute Current Visit: Yes Onset Date: ~07/17/20 Qualifiers: Encounter type: initial encounter Qualified Code(s): W19.XXXA - Unspecified fall, initial encounter (4) Head injury SNOMED Code(s): 12565874 ICD Code: S09.90XA - UNSPECIFIED INJURY OF HEAD, INITIAL ENCOUNTER Status: Acute Current Visit: Yes Onset Date: ~07/17/20 (5) Confusion SNOMED Code(s): 092976744 ICD Code: R41.0 - DISORIENTATION, UNSPECIFIED Status: Chronic Current Visit: Yes (6) Multi-infarct dementia SNOMED Code(s): 81848375 ICD Code: F01.50 - VASCULAR DEMENTIA WITHOUT BEHAVIORAL DISTURBANCE Status: Acute Current Visit: Yes Problem Details: SLUMS test performed on 07/21/2020 Qualifiers: Dementia behavioral disturbance: without behavioral disturbance Qualified Code(s): F01.50 - Vascular dementia without behavioral disturbance (7) CHF, Congestive heart failure SNOMED Code(s): 58675921 ICD Code: I50.9 - HEART FAILURE, UNSPECIFIED Status: Chronic Current Visit: No (8) Chronic a-fib SNOMED Code(s): 290464100 ICD Code: I48.20 - CHRONIC ATRIAL FIBRILLATION, UNSPECIFIED Status: Chronic Current Visit: No (9) DM2 (diabetes mellitus, type 2) SNOMED Code(s): 05888334 ICD Code: E11.9 - TYPE 2 DIABETES MELLITUS WITHOUT COMPLICATIONS Status: Chronic Current Visit: No Qualifiers: Diabetes mellitus complication status: without complication (10) HTN (hypertension) SNOMED Code(s): 18025370 ICD Code: I10 - ESSENTIAL (PRIMARY) HYPERTENSION Status: Chronic Current Visit: No Qualifiers: Hypertension type: essential hypertension Qualified Code(s): I10 - Essential (primary) hypertension (11) Palliative care status SNOMED Code(s): 719497646 ICD Code: Z51.5 - ENCOUNTER FOR PALLIATIVE CARE Status: Chronic Current Visit: Yes - Patient Summary/Data Consults: Consultations 07/23/20 06:00 OT Evaluation and Treatment [CONS] Routine Please Evaluate and Treat. OT Reason for Consult: ADL's This query below is only for informational purposes and is not editable. Admission Diagnosis/Problem: Fall PT Evaluation and Treatment [CONS] Routine Please Evaluate and Treat. PT Reason for Consult: Ambulation This query below is only for informational purposes and is not editable. Admission Diagnosis/Problem: Fall Hospital Course: Mrs Keller was admitted from clinic for fall on 07/17, had EGD with conscious sedation on 07/18, has had more confusion, odd behaviors since Thursday. We were able to get urine sample when she arrived to floor, showed >1000 glucose but no signs of any infection. She required 2 person assist to the bathroom. CT head & neck were obtained, no acute findings but all chronic findings. Radiology questioned multi-infarct dementia. Had labs done in clinic, repeated her labs on Thursday, showed dehydration BUN 33, Cr 1.7, so gave NS x 1 liter. Repeated labs on Thursday, BUN and Cr improved but still not at baseline so gave LR x 1 liter on Thursday. Her BUN improved to 19, and Cr to 1.6 on Thursday so saline locked her. SLUMs dementia screen done on Thursday, scored 15/30 consistent with dementia; in conjunction with her CT head would be consistent with multi- infarct dementia. PT/OT evaluation for Thursday, recommended resuming Home Health with PT/OT service. Romario Donaldson PA-C notified me on Thursday that her pathology report came back from her EGD positive for candidal esophagitis, so after discussing with pharmacy we gave loading dose of Fluconazole, got baseline comprehensive panel to check her LFTs, last CMP we had was in Jun 2020, and started cardiac monitoring for QT prolongation with her Celexa. Dosing was staggered so they would not peak at the same time and Celexa dose was decreased to 10 mg daily. She was in atrial fibrillation on manager cardiac so could not calculate QTc, so discontinued. Obtained serial EKGs every 8 hours for 36 hours: lowest QTc was 371, highest was 492 but never had any readings over 500. She did not require any Zofran during hospital stay so was discontinued. Her eating was improved over her last admission but still was small amounts. She had a vasovagal event morning of discharge, when she was up to have bowel movement, was unresponsive and staring off for 4-5 minutes, then was slow to respond, required 2 nurses to get back in bed, noted right arm weakness. Her vitals were stable, BS was 136. Her symptoms resolved without intervention. MRI head was obtained, showed no acute abnormalities, chronic ischemic changes. She will have close follow up with Romario Donaldson PA-C as outpatient, received 2 doses of Fluconazole and will go home with 19 more doses to complete 21 day course. Will require reduced dose of Celexa 10 mg daily(in morning) until she is off Fluconazole. She required 8 units of sliding scale, as a daily average. Her blood sugars were well controlled in the mornings so no change to her current insulin dosing. - Patient Instructions Diet: Usual Diet as Tolerated Activity: As Tolerated Driving: Do Not Drive Showering/Bathing: May Shower Notify Provider of: Fever, Increased Pain, Nausea and/or Vomiting Other/Special Instructions: Follow up with Romario Donaldson PA-C on ThursdayJuly 30 at 130 pm for recheck of your comprehensive panel and EKG to recheck your heart rhythm due to medication to treat your yeast esophagitis. [facility] for Physical therapy, occupation therapy & fdc. - Discharge Plan *PRESCRIPTION DRUG MONITORING PROGRAM REVIEWED*: Not Applicable *COPY OF PRESCRIPTION DRUG MONITORING REPORT IN PATIENT ZOYA: Not Applicable Prescriptions/Med Rec: Citalopram Hydrobromide [Celexa] 10 mg PO DAILY 19 Days #10 tab Fluconazole [Diflucan] 100 mg PO DAILY@1600 19 Days #19 tablet Home Medications: Home Meds Allopurinol [Zyloprim] 100 mg PO DAILY 11/25/15 [History] Fluticasone/Salmeterol [Advair Diskus 500-50] 1 puff IH BID 09/18/16 [History] Acetaminophen [Tylenol] 650 mg PO Q4H PRN #0 tablet 09/21/16 [Rx] Quinapril HCl [Accupril] 10 mg PO BEDTIME tablet 09/21/16 [Rx] Albuterol Sulfate [Albuterol Sulfate Hfa] 2 puff IH Q4H PRN 09/22/18 [History] Cholecalciferol (Vitamin D3) [Vitamin D3] 2,000 unit PO DAILY 09/22/18 [History] Furosemide [Lasix] 20 mg PO DAILY 09/22/18 [History] Lactobacillus Rhamnosus GG [[facility]] 1 cap PO DAILY 09/22/18 [History] Levothyroxine 75 mcg PO MOTUWETHFRSA 09/22/18 [History] Multivit-Min/FA/Lycopen/Lutein [Certavite Senior Tablet] 1 tab PO DAILY 09/22/18 [History] Ferrous Sulfate 325 mg PO DAILY 06/10/20 [History] Carboxymethylcellulose Sodium [Refresh Tears] 1 drop EYEBOTH BID 06/11/20 [History] Metoprolol Succinate [Toprol XL 100mg] 50 mg PO DAILY 30 Days #15 tab.er 06/27/20 [Rx] Aspirin [Halfprin] 81 mg PO DAILY 07/20/20 [History] Insulin Glarg,Human.Rec.Analog [Lantus Solostar] 18 units SUBCUT BEDTIME 07/02 01/22 [History] Insulin Lispro [Humalog] 8 units SUBCUT DAILY@1600 PRN 07/20/20 [History] Loperamide [Imodium] 4 mg PO BID PRN 07/20/20 [History] Pantoprazole Sodium [Protonix] 40 mg PO DAILY 07/20/20 [History] polyethylene glycoL 3350 [MiraLAX] 17 gm PO DAILY PRN 07/20/20 [History] Citalopram Hydrobromide [Celexa] 10 mg PO DAILY 19 Days #10 tab 07/25/20 [Rx] Fluconazole [Diflucan] 100 mg PO DAILY@1600 19 Days #19 tablet 07/25/20 [Rx] - Discharge Summary/Plan Comment DC Time >30 min.: No - Patient Data Vitals - Most Recent: Last Vital Signs Temp 97.4 F 07/25/20 04:00 Pulse 84 07/25/20 11:07 Resp 19 07/25/20 04:00 BP 128/64 07/25/20 11:07 Pulse Ox 98 07/25/20 04:00 Weight - Most Recent: 146 lb 4 oz I&O - Last 24 hours: Intake & Output 07/24/20 07/25/20 07/25/20 22:59 06:59 14:59 Intake Total 200 Balance 200 Lab Results - Last 24 hrs: Laboratory Results - last 24 hr 07/24/20 07/24/20 07/25/20 Range/Units 17:24 20:29 06:21 Sodium (135-145) mmol/L Potassium (3.5-5.3) mmol/L Chloride (100-110) mmol/L Carbon Dioxide (21-32) mmol/L BUN (7-18) mg/dL Creatinine (0.55-1.02) mg/dL Est Cr Clr Drug Dosing mL/min Estimated GFR (MDRD) (>60) BUN/Creatinine Ratio (9-20) Glucose (80-116) mg/dL POC Glucose 219 H 266 H 136 H (74-100) mg/dL Calcium (8.6-10.2) mg/dL Total Bilirubin (0.1-1.3) mg/dL AST (5-25) IU/L ALT (12-36) U/L Alkaline Phosphatase (56-112) IU/L Total Protein (6.0-8.0) g/dL Albumin (3.2-4.6) g/dL Globulin g/dL Albumin/Globulin Ratio 07/25/20 07/25/20 Range/Units 06:25 11:46 Sodium 141 (135-145) mmol/L Potassium 3.8 (3.5-5.3) mmol/L Chloride 103 (100-110) mmol/L Carbon Dioxide 24 (21-32) mmol/L BUN 25 H (7-18) mg/dL Creatinine 1.8 H (0.55-1.02) mg/dL Est Cr Clr Drug Dosing 15.52 mL/min Estimated GFR (MDRD) 27 L (>60) BUN/Creatinine Ratio 13.9 (9-20) Glucose 146 H (80-116) mg/dL POC Glucose 250 H (74-100) mg/dL Calcium 9.5 (8.6-10.2) mg/dL Total Bilirubin 0.5 (0.1-1.3) mg/dL AST 21 D (5-25) IU/L ALT 15 D (12-36) U/L Alkaline Phosphatase 141 H (56-112) IU/L Total Protein 6.5 (6.0-8.0) g/dL Albumin 2.9 L (3.2-4.6) g/dL Globulin 3.6 g/dL Albumin/Globulin Ratio 0.8 Med Orders - Current: Current Medications Acetaminophen (Acetaminophen 325 Mg Tab) 650 mg PO Q4H PRN PRN Reason: Pain Allopurinol (Allopurinol 100 Mg Tab) 100 mg PO DAILY CHRISTINE Last Admin: 07/25/20 10:59 Dose: 100 mg Documented by: Artificial Tears (Carboxymethylcellulose Sodium 0.5% Ophth Soln 15 Ml Bottle) 0 ml EYEBOTH BID [facility] Last Admin: 07/25/20 11:09 Dose: 1 drop Documented by: Aspirin (Aspirin 81 Mg Tab.Ec) 81 mg PO DAILY [facility] Last Admin: 07/25/20 11:00 Dose: 81 mg Documented by: Cholecalciferol (Cholecalciferol (Vitamin D3) 25 Mcg Tab) 50 mcg PO DAILY [facility] Last Admin: 07/25/20 10:58 Dose: 50 mcg Documented by: Citalopram Hydrobromide (Citalopram 10 Mg Tab) 10 mg PO DAILY [facility] Last Admin: 07/25/20 11:06 Dose: 10 mg Documented by: Dextrose/Water (50% Dextrose In Water 50 Ml Syringe) 50 ml IVPUSH ASDIRECTED PRN PRN Reason: Hypoglycemia Ferrous Sulfate (Ferrous Sulfate 325 Mg Tab) 325 mg PO DAILY [facility] Last Admin: 07/25/20 10:59 Dose: 325 mg Documented by: Fluconazole (Fluconazole 100 Mg Tab) 100 mg PO DAILY@1600 [facility] Last Admin: 07/24/20 17:52 Dose: 100 mg Documented by: Furosemide (Furosemide 20 Mg Tab) 20 mg PO DAILY [facility] Last Admin: 07/25/20 10:59 Dose: 20 mg Documented by: Glucagon (Glucagon,Human Recombinant 1 Mg Vial) 1 mg IM ASDIRECTED PRN PRN Reason: Hypoglycemia Insulin Glargine (Insulin Glargine,Human Rec. Analog 100 Units/Ml 3 Ml Pen) 18 units SUBCUT BEDTIME [facility] Last Admin: 07/24/20 20:52 Dose: 18 units Documented by: Insulin Human Lispro (Insulin Lispro 100 Unit/Ml 3 Ml Kwikpen) 0 unit SUBCUT TIDMEALS [facility]; Protocol Last Admin: 07/25/20 12:25 Dose: 6 units Documented by: Lactobacillus Rhamnosus (Lactobacillus Rhamnosus Gg (Probiotic) Cap) 1 cap PO DAILY [facility] Last Admin: 07/25/20 10:58 Dose: 1 cap Documented by: Levothyroxine Sodium (Levothyroxine 75 Mcg Tab) 75 mcg PO MoTuWeThFrSa@0600 [facility] Last Admin: 07/25/20 06:36 Dose: 75 mcg Documented by: Metoprolol Succinate (Metoprolol Succinate 50 Mg Tab.Er) 50 mg PO DAILY [facility] Last Admin: 07/25/20 11:07 Dose: 50 mg Documented by: Multivitamins/Minerals (Multivitamins With Iron/Calcium/Folic Acid/Minerals Tab) 1 tab PO DAILY [facility] Last Admin: 07/25/20 10:59 Dose: 1 tab Documented by: (Fluticasone/Salmeterol [Advair Diskus 500-50] 14 Puff/Dis *Ptom 1 puff INH BID [facility] Last Admin: 07/25/20 11:08 Dose: 1 puff Documented by: (Quinapril Hcl [ Accupril] 10 Mg Tablet) *Ptom 10 mg PO BEDTIME [facility] Last Admin: 07/24/20 20:54 Dose: 10 mg Documented by: Pantoprazole Sodium (Pantoprazole 40 Mg Tab.Cr) 40 mg PO ACBREAKFAST [facility] Last Admin: 07/25/20 06:36 Dose: 40 mg Documented by: Polyethylene Glycol (Polyethylene Glycol 3350 Powder 17 Gm Packet) 17 gm PO DAILY PRN PRN Reason: Constipation Sodium Chloride (Sodium Chloride 0.9% 10 Ml Syringe) 10 ml FLUSH ASDIRECTED PRN PRN Reason: Keep Vein Open Last Admin: 07/21/20 20:53 Dose: 10 ml Documented by: Discontinued Medications Allopurinol (Allopurinol 100 Mg Tab *Ptom) 100 mg PO DAILY [facility] Last Admin: 07/21/20 09:56 Dose: 100 mg Documented by: Artificial Tears (Carboxymethylcellulose Sodium 0.5% Ophth Soln 15 Ml Bottle) 0 ml EYEBOTH BID [facility] Last Admin: 07/21/20 10:06 Dose: 1 drop Documented by: Aspirin (Aspirin 81 Mg Tab.Ec *Ptom) 81 mg PO DAILY [facility] Last Admin: 07/21/20 09:59 Dose: 81 mg Documented by: Cholecalciferol (Cholecalciferol (Vitamin D3) 25 Mcg Tab *Ptom) 50 mcg PO DAILY [facility] Last Admin: 07/21/20 10:23 Dose: 50 mcg Documented by: Citalopram Hydrobromide (Citalopram 20 Mg Tab *Ptom) 20 mg PO DAILY [facility] Last Admin: 07/21/20 09:56 Dose: 20 mg Documented by: Citalopram Hydrobromide (Citalopram 20 Mg Tab) 20 mg PO DAILY [facility] Last Admin: 07/23/20 08:27 Dose: 20 mg Documented by: Fluconazole (Fluconazole 100 Mg Tab) 400 mg PO ONETIME ONE Stop: 07/23/20 16:01 Last Admin: 07/23/20 16:23 Dose: 400 mg Documented by: Furosemide (Furosemide 20 Mg Tab *Ptom) 20 mg PO DAILY [facility] Last Admin: 07/21/20 10:02 Dose: Not Given Documented by: Sodium Chloride (Normal Saline) 1,000 mls @ 100 mls/hr IV ASDIRECTED [facility] Stop: 07/21/20 19:44 Last Admin: 07/21/20 10:00 Dose: 100 mls/hr Documented by: Lactated Ringer's (Ringers, Lactated) 1,000 mls @ 100 mls/hr IV ASDIRECTED [facility] Stop: 07/22/20 18:14 Last Admin: 07/22/20 09:29 Dose: 100 mls/hr Documented by: Insulin Glargine (Insulin Glargine,Human Rec. Analog 100 Units/Ml 3 Ml Pen *Ptom) 18 units SUBCUT BEDTIME [facility] Last Admin: 07/20/20 21:11 Dose: 18 units Documented by: Insulin Human Lispro (Novolog 100 Unit/Ml 3 Ml Kwikpen *Ptom) 0 unit SUBCUT TIDMEALS [facility]; Protocol Last Admin: 07/21/20 18:06 Dose: 4 units Documented by: Levothyroxine Sodium (Levothyroxine 75 Mcg Tab *Ptom) [facility]cg [facility] Last Admin: 07/21/20 06:27 Dose: 75 mcg Documented by: Metoprolol Succinate (Metoprolol Succinate 50 Mg Tab.Er *Ptom) 50 mg PO DAILY [facility] Last Admin: 07/21/20 10:12 Dose: 50 mg Documented by: Multivitamins/Minerals (Multivitamins With Iron/Calcium/Folic Acid/Minerals Tab *Ptom) 1 tab PO DAILY [facility] Last Admin: 07/21/20 10:13 Dose: 1 tab Documented by: Lactobacillus Rhamnosus Gg [ [facility]] *Ptom 1 cap PO DAILY [facility] Last Admin: 07/21/20 10:00 Dose: 1 cap Documented by: Pantoprazole Sodium (Pantoprazole 40 Mg Tab.Cr *Ptom) 40 mg PO DAILY [facility] Last Admin: 07/21/20 10:06 Dose: 40 mg Documented by:
[2020-07-25 14:11] VITALS: BP 124/63; PULSE 80
== END 2020-07-25 13:25 | disposition home health service (06) | DRG 884 ==
LOC: FB.MS 16:04 → UNDOADMOB 16:04 → INTOOBSV 16:04 → FB.MS 16:04 → OBSVTOIN 18:08 → INTOOBSV 18:08 → OBSVTOIN 07-21 18:08 → FB.MS 07-21 18:08
PROVIDERS: ADMIT Family Medicine; ATTEND Family Medicine
DX: F01.50 Vascular dementia, unspecified severity, without behavioral disturbance, psychotic disturbance, mood disturbance, and anxiety (principal); B37.81 Candidal esophagitis; R41.0 Disorientation, unspecified; R44.1 Visual hallucinations; M54.2 Cervicalgia; I48.20 Chronic atrial fibrillation, unspecified; S09.90XA Unspecified injury of head, initial encounter; Z66 Do not resuscitate; Z51.5 Encounter for palliative care; E86.0 Dehydration; I50.9 Heart failure, unspecified; H54.7 Unspecified visual loss; H91.90 Unspecified hearing loss, unspecified ear; W19.XXXA Unspecified fall, initial encounter; E78.00 Pure hypercholesterolemia, unspecified; I13.0 Hypertensive heart and chronic kidney disease with heart failure and stage 1 through stage 4 chronic kidney disease, or unspecified chronic kidney disease; J45.909 Unspecified asthma, uncomplicated; M19.90 Unspecified osteoarthritis, unspecified site; N18.9 Chronic kidney disease, unspecified; G89.29 Other chronic pain; M10.9 Gout, unspecified; M79.7 Fibromyalgia; F41.9 Anxiety disorder, unspecified; Z20.822 Contact with and (suspected) exposure to COVID-19; F32.9 Major depressive disorder, single episode, unspecified; I11.0 Hypertensive heart disease with heart failure; I69.398 Other sequelae of cerebral infarction; E11.22 Type 2 diabetes mellitus with diabetic chronic kidney disease; W18.30XA Fall on same level, unspecified, initial encounter; Z79.01 Long term (current) use of anticoagulants; Z88.8 Allergy status to other drugs, medicaments and biological substances; Z88.0 Allergy status to penicillin; Z88.2 Allergy status to sulfonamides; Z91.041 Radiographic dye allergy status; Z79.82 Long term (current) use of aspirin; Z79.899 Other long term (current) drug therapy; Z79.4 Long term (current) use of insulin; Z87.11 Personal history of peptic ulcer disease; Z86.010 Personal history of colon polyps; Z86.73 Personal history of transient ischemic attack (TIA), and cerebral infarction without residual deficits; Z90.49 Acquired absence of other specified parts of digestive tract; Z98.49 Cataract extraction status, unspecified eye; Z90.710 Acquired absence of both cervix and uterus; Z98.890 Other specified postprocedural states; Z79.890 Hormone replacement therapy
CPT/HCPCS: 70450; 72125; 81001; J1815; U0002; 36415; 70551; 80048; 80053; 82962; 85025; 93005; 94760; 97116-GP; 97161-GP; 97165-GO; 97530-GP; A9270-GY; J7030; J7120